=== PATIENT | male | born 1955 | race Caucasian/White ===

== ENCOUNTER → 2016-05-23 | Outpatient (CLI) | payer MEDICARE, OTHER ==
[~2016-05-23] VITALS: Ht 180.3 cm; Wt 93.0 kg
[~2016-05-23] MED LIST: ATOR10TA15 PO; BRIN1SUS2 EACH EYE; CILO50TA PO; COLA100C3 PO; COLL30T TOPICAL; DIFL100T PO; FERR325T PO; HUMALOG SQ; HYDR-3288 PO; INSULIN HUMAN REGULAR 1,000 UNITS/10 ML VIAL SQ PRN; LACTATED RINGER'S 1000 ML IV SCH; LANTUS2P SQ; LISI40TA PO; LORA-474 PO; LYRI50CA PO; MAPA325T PO; METOPROLOL TARTRATE 25 MG TAB PO PRN; NORC5TAB PO; PLAV75TA29 PO; PRIL20CA9 PO; PROPOFOL 200 MG/20 ML AMP IV ONE; PROT40TA PO; SODIUM CHLORID 0.9% 500 ML IV SCH; THERTAB17 PO; TOPR100T PO; TRAV0.00 EACH EYE; WARF-23 PO; WARF-58 PO; fentaNYL CITRATE 250 MCG/5 ML AMP ONE
[2016-05-23 08:43] VITALS: BP 148/81; PULSE 81; RESP 16; TEMP 97.6; O2SAT 100
[2016-05-23 08:55] LABS: INTERNATIONAL NORMALIZED RATIO 1.2 RATIO; PROTHROMBIN TIME - PATIENT 13.1 SEC (9.8-11.6)
--- NOTE | 2016-05-23 10:55 | PD.PROCEDR ---
GI Procedure PROCEDURE PERFORMED Colonoscopy through rectum and through colostomy with snare polypectomy INDICATION FOR PROCEDURE Anemia GI bleed PROCEDURE: The procedure, risks and benefits were discussed with Mr. Medeiros and informed consent was obtained. Anesthesia sedated him with Diprivan. He was placed in the left lateral decubitus position. Colonoscopy: The Pentax videoscope was introduced through the rectum and advanced to cecum where the ileocecal valve and appendiceal orifice were identified. Retroflexion was performed in the rectum. Colonic prep was good FINDINGS: Initially I advanced the scope through the rectum to about 40 cm the prep was not so good there was some mild erythemic patches that no ulcerations no blood or bleeding then the scope was advanced through the colostomy bag all way to the cecum the patient was noted to have 2 sessile polyps one in the ascending 1 in the mid transverse colon adenomatous appearing medium in size both were excised using cold snare technique and they were retrieved for further evaluation colonic examination was otherwise unremarkable ESTIMATED BLOOD LOSS: None SPECIMENS REMOVED: Ascending colon and transverse colon polyps COMPLICATIONS: None IMPRESSION: Colon polyps PLAN: Await biopsy Monitor labs Follow-up in clinic in 1 month CBC prior to office visit Colonoscopy in 5 years Ezekiel Bear MD May 23, 2016 10:55
[2016-05-23 11:02] VITALS: BP 149/70; PULSE 54; RESP 16; O2SAT 98
--- NOTE | 2016-09-10 10:59 | MB ---
cc: OPHELIA FOSTER M.D. DATE OF CONSULTATION May 23, 2016 REASON FOR CONSULTATION Pneumoperitoneum. HISTORY OF PRESENT ILLNESS Mr. Medeiros is a 60-year-old male who had had a loop colostomy done several years ago for nonhealing perineal wound and incontinence. He has been worked up recently for occult GI bleeding and anemia. The patient underwent colonoscopy through the colostomy and through his rectum a day prior to admission which revealed no source for the anemia. He presented to the emergency room today with abdominal pain, relatively diffuse, fever and vomiting. Workup in the emergency room noted pneumoperitoneum and the undersigned was consulted for additional evaluation. He was urgently transferred from [place] emergency Room up to the [facility] preop holding unit in preparation for surgery. PAST MEDICAL HISTORY 1. History of diabetes. 2. Hypertension. 3. Previous strokes. 4. Coronary bypass. 5. 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 6. Colostomy for a nonhealing perineal wound. MEDICATIONS Please see the admitting list. ALLERGIES LATEX. MULTI DRUG-RESISTANT ORGANISMS on prior admissions. FAMILY HISTORY No family history of colorectal surgery. SOCIAL HISTORY The patient has had smoking in the past but presently nonsmoking. Denies any alcohol abuse. Disabled due to his diabetes and amputation. PERTINENT PHYSICAL GENERAL: A very pleasant heavy-set male in some distress. HEENT: Remarkable for very dry but pink membranes, nonicteric sclera. NECK: Stiff, without adenopathy. CHEST: Diminished in the bases. Clear anteriorly. HEART: Regular rhythm with a slight tachycardia. ABDOMEN: Round and full. Positive tympany. Quite tender to minimal touch in just about all quadrants. No rebound but there was some guarding. Stoma was pink and producing some mucus. No sign of any mucosal ischemia. RECTAL: Exam revealed very poor tone with some tightness and scar tissue. No masses or mucosal irregularity in the rectum. EXTREMITIES: No cyanosis, clubbing or edema. The one amputation appeared pretty normal. LABORATORY FINDINGS White count was 10,000, hemoglobin 10.3, hematocrit 31.7, platelet count was 172,000. Electrolytes were pretty normal with a BUN of 28 and a creatinine of 2.6. X-RAYS Reviewed showing rather widespread pneumoperitoneum. IMPRESSION A 60-year-old male with multiple medical problems, underwent colonoscopy for workup of anemia, now found to have pneumoperitoneum. He has been resuscitated with fluids and given broad-spectrum antibiotics. Discussed exploratory laparotomy and possible colon resection with reformation of the colostomy. He does have a parastomal hernia which does not appear to be the cause of the pneumoperitoneum. The risks, benefits and alternatives were discussed in great length with the patient and we will proceed to the operating room as soon as the OR is available. MD JUANIS Liang/SHERRIE /9:52 AM /10:52 AM
== END ==
LOC: HEND 08:06
PROVIDERS: ATTEND Internal Medicine Gastroenterology
DX: D12.2 Benign neoplasm of ascending colon (principal); D12.3 Benign neoplasm of transverse colon; K92.2 Gastrointestinal hemorrhage, unspecified; D64.9 Anemia, unspecified; E10.610 Type 1 diabetes mellitus with diabetic neuropathic arthropathy; E10.22 Type 1 diabetes mellitus with diabetic chronic kidney disease; N18.9 Chronic kidney disease, unspecified; Z79.82 Long term (current) use of aspirin; Z79.01 Long term (current) use of anticoagulants; Z79.4 Long term (current) use of insulin
CPT/HCPCS: 82948; 85610; 88305; J3010

== ENCOUNTER 2016-05-24 11:43 | Inpatient (IN) | payer MEDICARE, OTHER ==
[~2016-05-24] VITALS: Ht 154.9 cm; Wt 91.5 kg
[~2016-05-24 11:43] MED LIST changes: -COLL30T TOPICAL; -DIFL100T PO; -FERR325T PO; -INSULIN HUMAN REGULAR 1,000 UNITS/10 ML VIAL SQ PRN; -LACTATED RINGER'S 1000 ML IV SCH; -LISI40TA PO; -MAPA325T PO; -METOPROLOL TARTRATE 25 MG TAB PO PRN; -NORC5TAB PO; -PROPOFOL 200 MG/20 ML AMP IV ONE; -PROT40TA PO; -SODIUM CHLORID 0.9% 500 ML IV SCH; -THERTAB17 PO; -WARF-58 PO; -fentaNYL CITRATE 250 MCG/5 ML AMP ONE
--- NOTE | 2016-05-24 11:51 | PD ---
HPI Chief Complaint: Abd Pain Time Seen by Provider: 11:51 Travel History International Travel<30 days: No Contact w/Intl Traveler<30days: No Traveled to known affect area: No History of Present Illness HPI 60-year-old male with history of type 1 diabetes, BKA, colostomy, SIRS , and GI bleed, presents the emergency department via ambulance status post colonoscopy yesterday with removal of 2 sessile polyps. Patient states he was discharged home yesterday but had nausea and vomiting at home last evening. He presents today with pain in his left lower abdomen. Patient denies bleeding from his ostomy. Patient feels generally weak but denies fever, chills, chest pain, or shortness of breath. Patient appears pale and weak. Patient has a history of MRSA and is allergic to latex. PFSH Past Medical History Arthritis: Yes Asthma: No Autoimmune Disease: No Blood Disorders: No Anxiety: No Depression: No Heart Rhythm Problems: No Cancer: No Cardiac Catheterization: No Cardiovascular Problems: Yes High Cholesterol: Yes Chemotherapy: No Chest Pain: No Congestive Heart Failure: No COPD: No Cerebrovascular Accident: Yes (2012) Diabetes: Yes Endocrine: Yes Gastrointestinal Disorders: Yes (colostomy bag. ) GERD: No Genitourinary: Yes Hiatal Hernia: No Hypertension: Yes Immune Disorder: No Kidney Stones: No Musculoskeletal: Yes (LT SIDE WEAKNESS WITH FOOT DROP ON LT) Neurologic: Yes Psychiatric: No Reproductive: No Respiratory: No Migraines: No Radiation Therapy: No Renal Failure: No Seizures: No Sickle Cell Disease: No Sleep Apnea: No Thyroid Disease: No Ulcer: No Past Surgical History Abdominal Surgery: Yes (COLOSTOMY) AICD: No Arteriovenous Shunt: No Cardiac Surgery: Yes (MITRAL VALVE REPLACED 05/2012) Coronary Artery Bypass Graft: Yes (06-10-2012) Ear Surgery: No Endocrine Surgery: No Eye Surgery: No Genitourinary Surgery: No Gynecologic Surgery: No Insulin Pump: No Joint Replacement: No Oral Surgery: No Pacemaker: No Thoracic Surgery: Yes Valve Replacement: Yes (MVR 06-10-2012) Other Surgery: Yes Social History Alcohol Use: No (OCC) Tobacco Use: No Substance Use: Yes (marijuana) Allergies-Medications (Allergen,Severity, Reaction): Coded Allergies: Latex (Verified Allergy, Severe, Rash, 05/24/16) *MDRO Multi-Drug Resistant Organism (Verified Allergy, Unknown, 05/24/16) 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 Reported Meds & Prescriptions Reported Meds & Active Scripts Active Protonix (Pantoprazole Sodium) 40 Mg Tab 40 Mg PO BID 30 Days Toprol XL (Metoprolol Succinate) 100 Mg Tab 100 Mg PO DAILY [place] (Hydrocodone-Acetaminophen) 7.5-325 mg Tab 1 Tab PO QID Lyrica (Pregabalin) 50 Mg Cap 50 Mg PO HS Ativan (Lorazepam) 1 Mg Tab 1 Mg PO HS Reported Travatan Z Opth Drops (Travoprost) 0.004 % Soln 1 Drop EACH EYE HS Cilostazol 50 Mg Tab 50 Mg PO BID Simbrinza Opth Drops (Brinzolamide-Brimonidine Opth Drops) 1-0.2% Susp 1 Drop EACH EYE BID Atorvastatin (Atorvastatin Calcium) 10 Mg Tab 10 Mg PO HS Plavix (Clopidogrel Bisulfate) 75 Mg Tab 75 Mg PO DAILY Lantus Inj (Insulin Glargine) 1,000 Unit/10 Ml Vial 35 Units SQ DAILY Colace (Docusate Sodium) 100 Mg Cap 100 Mg PO DAILY PRN Warfarin 5 Mg Tab 5 Mg PO DAILY@1600 Review of Systems Except as stated in HPI: all other systems reviewed are Neg General / Constitutional: No: Fever Eyes: No: Visual changes HENT: No: Headaches Cardiovascular: No: Chest Pain or Discomfort Respiratory: No: Shortness of Breath Gastrointestinal: Positive: Nausea, Vomiting, Abdominal Pain (see history of present illness.), Loss of Appetite, No: Diarrhea Genitourinary: No: Dysuria Musculoskeletal: No: Pain Skin: No Rash Neurologic: No: Weakness Psychiatric: No: Depression Endocrine: No: Polydipsia Hematologic/Lymphatic: No: Easy Bruising Physical Exam Narrative GENERAL: Patient appears in mild distress and weak. SKIN: Warm and dry. Patient has moderate pallor, normal turgor. HEAD: Atraumatic. Normocephalic. EYES: Pupils equal and round. No scleral icterus. No injection or drainage. ENT: No nasal bleeding or discharge. Mucous membranes pink and dry. Pharynx is dry and appearance otherwise normal. NECK: Trachea midline. No JVD. Supple nontender. CARDIOVASCULAR: Regular rate and rhythm. No murmurs gallops or rubs. RESPIRATORY: No accessory muscle use. Clear to auscultation. Breath sounds equal bilaterally. GASTROINTESTINAL: Abdomen soft, non-tender, nondistended. Hepatic and splenic margins not palpable. Nonspecific left lower quadrant discomfort. No palpable mass. Colostomy appears normal. MUSCULOSKELETAL: Extremities without clubbing, cyanosis, or edema. Patient has a right BKA.. NEUROLOGICAL: Awake and alert. No obvious cranial nerve deficits. Motor grossly within normal limits. Five out of 5 muscle strength in the arms and legs. Normal speech. PSYCHIATRIC: Appropriate mood and affect; insight and judgment normal. Data Data Last Documented VS Vital Signs Date Time Temp Pulse Resp B/P Pulse Ox O2 Delivery O2 Flow Rate FiO2 05/24/16 14:37 94 20 120/65 97 Room Air 05/24/16 11:52 98.2 Orders Complete Blood Count With Diff (05/24/16 11:56) Comprehensive Metabolic Panel (05/24/16 11:56) Lipase (05/24/16 11:56) Lactic Acid (05/24/16 11:56) Prothrombin Time / Inr (Pt) (05/24/16 11:56) Act Partial Throm Time (Ptt) (05/24/16 11:56) Urinalysis - C+S If Indicated (05/24/16 11:56) Iv Access Insert/Monitor (05/24/16 11:56) Ecg Monitoring (05/24/16 11:56) Oximetry (05/24/16 11:56) Morphine Inj (Morphine Inj) (05/24/16 12:00) Ondansetron Inj (Zofran Inj) (05/24/16 12:00) Sodium Chlor 0.9% 1000 Ml Inj (Ns 1000 M (05/24/16 11:56) Sodium Chloride 0.9% Flush (Ns Flush) (05/24/16 12:00) Chest, Single Ap (05/24/16 11:56) Oral Contrast - Adult (05/24/16 12:01) Electrocardiogram (05/24/16 ) Diatrizoate Liq ( Gastroview Liq) (05/24/16 12:15) Ct Abd/Pel W/O Iv Contrast (05/24/16 13:00) Piperacil-Tazo 4.5 Gm Premix (Zosyn 4.5 (05/24/16 14:30) Act Partial Throm Time (Ptt) (05/24/16 14:25) Type And Screen (05/24/16 14:25) Hydromorphone Pf Inj (Dilaudid Pf Inj) (05/24/16 14:45) Urinary Catheter Insert/Apply (05/24/16 16:12) Sodium Chlor 0.9% 1000 Ml Inj (Ns 1000 M (05/24/16 16:30) Admit Order (Ed Use Only) (05/24/16 16:43) Consult Colorectal Surgery (05/24/16 ) Labs Laboratory Tests Test 05/24/16 05/24/16 12:20 12:40 White Blood Count 10.0 TH/MM3 Red Blood Count 3.56 MIL/MM3 Hemoglobin 10.3 GM/DL Hematocrit 31.7 % Mean Corpuscular Volume 89.2 FL Mean Corpuscular Hemoglobin 29.1 PG Mean Corpuscular Hemoglobin 32.6 % Concent Red Cell Distribution Width 16.0 % Platelet Count 172 TH/MM3 Mean Platelet Volume 8.3 FL Neutrophils (%) (Auto) 83.8 % Lymphocytes (%) (Auto) 10.8 % Monocytes (%) (Auto) 5.0 % Eosinophils (%) (Auto) 0.1 % Basophils (%) (Auto) 0.3 % Neutrophils # (Auto) 8.4 TH/MM3 Lymphocytes # (Auto) 1.1 TH/MM3 Monocytes # (Auto) 0.5 TH/MM3 Eosinophils # (Auto) 0.0 TH/MM3 Basophils # (Auto) 0.0 TH/MM3 CBC Comment DIFF FINAL Differential Comment Prothrombin Time 19.4 SEC Prothromb Time International 1.7 RATIO Ratio Activated Partial 40.6 SEC Thromboplast Time Sodium Level 138 MEQ/L Potassium Level 4.4 MEQ/L Chloride Level 106 MEQ/L Carbon Dioxide Level 24.1 MEQ/L Anion Gap 8 MEQ/L Blood Urea Nitrogen 28 MG/DL Creatinine 2.63 MG/DL Estimat Glomerular Filtration 25 ML/MIN Rate Random Glucose 134 MG/DL Calcium Level 8.6 MG/DL Total Bilirubin 0.7 MG/DL Aspartate Amino Transf 11 U/L (AST/SGOT) Alanine Aminotransferase 22 U/L (ALT/SGPT) Alkaline Phosphatase 62 U/L Total Protein 6.8 GM/DL Albumin 3.1 GM/DL Lipase 93 U/L Lactic Acid Level 2.3 mmol/L MDM Medical Decision Making Medical Screen Exam Complete: Yes Emergency Medical Condition: Yes Differential Diagnosis Abdominal pain. Bowel obstruction. Bowel perforation. Fever. Narrative Course Patient appears weak but medically stable at time of exam. Labs ordered including CBC, CMP, lipase, PT PTT and INR, and urinalysis. Chest x-ray is ordered as well as abdominal CT with oral and IV contrast. Patient is given 1000 mL normal saline bolus IV. Patient is given 4 mg Zofran IV as well as 2 mg morphine IV. Patient is awaiting medical bed from the ambulance [facility]. CT scan shows "a large amount of air in the subcutaneous fat of the left lower quadrant abdominal wall adjacent to loop colostomy there is additionally here in the abdomen and pelvis primarily retroperitoneal tracking superiorly beneath the right hemidiaphragm. There is a small amount of free fluid in the left pelvis along with mild inflammatory change. These findings could be related to the recent surgery but there is more than expected amount of intraluminal air present. Therefore, perforated bowel cannot excluded. We could attempt instilling contrast in the ostomy site if there is a clinical concern for perforation". Per radiologist. Patient discussed with Dr. Garcia, and 2 units of blood typed and screened. Patient is given Zofran 4.5 mg IV. Patient given 1 mg hydromorphone IV. Call was placed to Dr. Fuller the colorectal surgeon on-call. Call was also placed to Dr. Burrell, who performed the colonoscopy yesterday. Patient is moved to an echo 57. 1445 hrs. patient was discussed with Dr. Fuller. He states he is going to review the patient's labs and CT scan and get back to me. Call still pending from Dr. Burrell. Patient discussed with Dr. Huang. Patient discussed with Dr. Fuller who feels the patient should be admitted to the hospitalist and expect to go to the OR later today. IV fluids are maintained, and Rodriguez catheter is placed. Patient is discussed with the residents who will admit the patient. Diagnosis Primary Impression: Perforated bowel Additional Impression: Abdominal pain Qualified Code: R10.32 - Left lower quadrant pain Admitting Information Admitting Physician Requests: Admit Condition: Stable Helder Morrison May 24, 2016 11:51
[2016-05-24 11:52] VITALS: BP 97/56; PULSE 79; RESP 20; TEMP 98.2; O2SAT 96
[2016-05-24] MEDS ORDERED: SODIUM CHLOR 0.9% 1000 ML INJ 1,000 ML IV SCH ×2 (11:56→16:30)
[2016-05-24] MEDS ORDERED: PROPOFOL 200 MG/20 ML AMP IV ONE (12:00)
[2016-05-24] MEDS ORDERED: SODIUM CHLORIDE 0.9% FLUSH 5 ML FLUSH IVF PRN ×2 (12:00→22:15)
[2016-05-24] MEDS ORDERED: MORPHINE SULFATE 4 MG/ML INJ IV PUSH ONE (12:00)
[2016-05-24] MEDS ORDERED: PHENYLEPH/NS 1000 MCG/10 ML SYR IV ONE (12:00)
[2016-05-24] MEDS ORDERED: SODIUM CHLORID 0.9% 500 ML INJ 500 ML IV ONE (12:00)
[2016-05-24] MEDS ORDERED: NORMOSOL R INJ 4,000 ML IV ONE (12:00)
[2016-05-24] MEDS ORDERED: ONDANSETRON HCL 4 MG/2 ML VIAL IVP ONE (12:00)
[2016-05-24] MEDS ORDERED: SUGAMMADEX SODIUM 200 MG/2 ML VIAL IV PUSH ONE ×2 (12:00)
[2016-05-24] MEDS ORDERED: LACTATED RINGER'S 1000 ML INJ 1,000 ML IV ONE (12:00)
[2016-05-24 12:13] VITALS: O2SAT 97
[2016-05-24] MEDS ORDERED: DIATRIZOATE MEGLUM/DIATRIZOATE SOD 9 ML CUP ONE (12:15)
[2016-05-24 12:36] LABS: AUTOMATED NEUTROPHIL # 8.4 TH/MM3 (1.8-7.7); BASOPHIL % 0.3 % (0.0-2.0); EOSINOPHIL % 0.1 % (0.0-4.0); HEMATOCRIT 31.7 % (39.0-51.0); HEMO FLAGS DIFF FINAL; LYMPH % 10.8 % (9.0-44.0); LYMPHOCYTE # 1.1 TH/MM3 (1.0-4.8); MEAN CELL VOLUME 89.2 FL (80.0-100.0); MEAN CORPUSCULAR HEMOGLOBIN 29.1 PG (27.0-34.0); MEAN CORPUSCULAR HGB CONC 32.6 % (32.0-36.0); NEUT % 83.8 % (16.0-70.0); PLATELET COUNT 172 TH/MM3 (150-450); RED BLOOD COUNT 3.56 MIL/MM3 (4.50-5.90)
[2016-05-24 12:42] LABS: APTT (PATIENT) 40.6 SEC (24.3-30.1); INTERNATIONAL NORMALIZED RATIO 1.7 RATIO; PROTHROMBIN TIME - PATIENT 19.4 SEC (9.8-11.6)
[2016-05-24 12:51] LABS: ALT (GPT) 22 U/L (12-78); ANION GAP 8 MEQ/L (5-15); AST (GOT) 11 U/L (15-37); BICARBONATE 24.1 MEQ/L (21.0-32.0); BLOOD UREA NITROGEN 28 MG/DL (7-18); CHLORIDE 106 MEQ/L (98-107); GLOMERULAR FILTRATION RATE 25 ML/MIN (>89); POTASSIUM 4.4 MEQ/L (3.5-5.1); SODIUM (NA) 138 MEQ/L (136-145)
[2016-05-24 12:54] LABS: ALKALINE PHOSPHATASE 62 U/L (45-117); TOTAL BILIRUBIN ADULT 0.7 MG/DL (0.2-1.0)
--- NOTE | 2016-05-24 13:13 | RADRPT ---
EXAM DATE/TIME: 05/24/2016 12:32 [facility] COMPARISON: CHEST SINGLE AP, April 04, 2016, 9:20. INDICATIONS : Chest pains. MEDICAL HISTORY : Cerebrovascular disease. SURGICAL HISTORY : CABG. ENCOUNTER: Subsequent ACUITY: 1 day PAIN SCORE: 7/10 LOCATION: Bilateral chest FINDINGS: Stable postsurgical changes related to heart valve replacement. The lungs are hypoinflated but grossl y clear. Heart size is normal. Pulmonary vasculature is normal in caliber. Osseous structures are unr emarkable. CONCLUSION: No acute disease. Mirlande Benson MD on May 24, 2016 at 13:11 Board Certified Radiologist. This report was verified electronically.
[2016-05-24 14:15] VITALS: BP 111/57; PULSE 74; RESP 18; O2SAT 98
--- NOTE | 2016-05-24 14:19 | RADRPT ---
EXAM DATE/TIME: 05/24/2016 13:54 [facility] COMPARISON: CT ABDOMEN & PELVIS W/O CONTRAST, June 11, 2012, 16:18. INDICATIONS : Colostomy yesterday. Complains of pain around colostomy site and nausea with vomiting. ORAL CONTRAST: No oral contrast ingested. RADIATION DOSE: 10.03 CTDIvol (mGy) MEDICAL HISTORY : Hypertension. Diabetes mellitus type 2. SURGICAL HISTORY : Colostomy. ENCOUNTER: Initial ACUITY: 1 day PAIN SCALE: 4/10 LOCATION: Left abdomen TECHNIQUE: Volumetric scanning of the abdomen and pelvis was performed. Using automated exposure control and ad justment of the mA and/or kV according to patient size, radiation dose was kept as low as reasonably achievable to obtain optimal diagnostic quality images. FINDINGS: LOWER LUNGS: There is trace pleural fluid bilaterally, right greater than left. Patient is post mitral valve repla cement. LIVER: Homogeneous density without lesion. There is no dilation of the biliary tree. There are calcified s tones in the gallbladder. Liver density is mildly decreased.. SPLEEN: Normal size without lesion. PANCREAS: Within normal limits. KIDNEYS: Normal in size and shape. There is no mass, stone, or hydronephrosis. ADRENAL GLANDS: Within normal limits. VASCULAR: There is no aortic aneurysm. There is severe atherosclerotic disease. BOWEL/MESENTERY: A small hiatal hernia is present. Stomach otherwise demonstrates no abnormality. Duodenum and jejunum have a normal appearance. There is a left lower quadrant loop colostomy and there is a large amount of air in the subcutaneous fat of the abdominal wall there is also air in the abdomen and pelvis was located retroperitoneally. This retroperitoneal air tracks superiorly in the abdomen and is adjacent to the duodenum, IVC, and liver. There is trace free fluid in the left pelvis and there is mild stran ding of the fat in the left lower quadrant. Mild sigmoid diverticulosis is present. Within and near t he ostomy site there is a soft tissue density abutting the colon. ABDOMINAL WALL: There is a left lower quadrant colostomy with a large amount of air in the subcutaneous fat. RETROPERITONEUM: There is no lymphadenopathy. BLADDER: No wall thickening or mass. REPRODUCTIVE: Within normal limits. INGUINAL: There is no lymphadenopathy or hernia. MUSCULOSKELETAL: There are degenerative changes of the spine but no acute osseous abnormality is seen. CONCLUSION: 1. There is a large amount of air in the subcutaneous fat of the left lower quadrant abdominal wall a djacent to the loop colostomy. There additionally is air in the abdomen and pelvis primarily retroper itoneally tracking superiorly beneath the right hemidiaphragm. 2. There is a small amount of free fluid in the left pelvis along with mild inflammatory change. Thes e findings could be related to the recent surgery but there is more than an expected amount of extral uminal air present. Therefore, perforated bowel cannot be excluded. We could attempt instilling contr ast into the ostomy site if there is clinical concern for perforation. Vazquez Bonds MD on May 24, 2016 at 14:13 Board Certified Radiologist. This report was verified electronically.
[2016-05-24] MEDS ORDERED: PIPERACIL-TAZO 4.5 GM PREMIX 100 ML IV ONE (14:30)
[2016-05-24 14:37] VITALS: BP 120/65; PULSE 94; RESP 20; O2SAT 97
[2016-05-24] MEDS ORDERED: HYDROmorphone HCL PF 1 MG/ML VIAL IV PUSH ONE (14:45)
--- NOTE | 2016-05-24 16:41 | PD ---
Data Data Last Documented VS Vital Signs Date Time Temp Pulse Resp B/P Pulse Ox O2 Delivery O2 Flow Rate FiO2 05/24/16 14:37 94 20 120/65 97 Room Air 05/24/16 11:52 98.2 Orders Complete Blood Count With Diff (05/24/16 11:56) Comprehensive Metabolic Panel (05/24/16 11:56) Lipase (05/24/16 11:56) Lactic Acid (05/24/16 11:56) Prothrombin Time / Inr (Pt) (05/24/16 11:56) Act Partial Throm Time (Ptt) (05/24/16 11:56) Urinalysis - C+S If Indicated (05/24/16 11:56) Iv Access Insert/Monitor (05/24/16 11:56) Ecg Monitoring (05/24/16 11:56) Oximetry (05/24/16 11:56) Morphine Inj (Morphine Inj) (05/24/16 12:00) Ondansetron Inj (Zofran Inj) (05/24/16 12:00) Sodium Chlor 0.9% 1000 Ml Inj (Ns 1000 M (05/24/16 11:56) Sodium Chloride 0.9% Flush (Ns Flush) (05/24/16 12:00) Chest, Single Ap (05/24/16 11:56) Oral Contrast - Adult (05/24/16 12:01) Electrocardiogram (05/24/16 ) Diatrizoate Liq ( Gastroview Liq) (05/24/16 12:15) Ct Abd/Pel W/O Iv Contrast (05/24/16 13:00) Piperacil-Tazo 4.5 Gm Premix (Zosyn 4.5 (05/24/16 14:30) Act Partial Throm Time (Ptt) (05/24/16 14:25) Type And Screen (05/24/16 14:25) Hydromorphone Pf Inj (Dilaudid Pf Inj) (05/24/16 14:45) Urinary Catheter Insert/Apply (05/24/16 16:12) Sodium Chlor 0.9% 1000 Ml Inj (Ns 1000 M (05/24/16 16:30) Labs Laboratory Tests Test 05/24/16 05/24/16 12:20 12:40 White Blood Count 10.0 TH/MM3 Red Blood Count 3.56 MIL/MM3 Hemoglobin 10.3 GM/DL Hematocrit 31.7 % Mean Corpuscular Volume 89.2 FL Mean Corpuscular Hemoglobin 29.1 PG Mean Corpuscular Hemoglobin 32.6 % Concent Red Cell Distribution Width 16.0 % Platelet Count 172 TH/MM3 Mean Platelet Volume 8.3 FL Neutrophils (%) (Auto) 83.8 % Lymphocytes (%) (Auto) 10.8 % Monocytes (%) (Auto) 5.0 % Eosinophils (%) (Auto) 0.1 % Basophils (%) (Auto) 0.3 % Neutrophils # (Auto) 8.4 TH/MM3 Lymphocytes # (Auto) 1.1 TH/MM3 Monocytes # (Auto) 0.5 TH/MM3 Eosinophils # (Auto) 0.0 TH/MM3 Basophils # (Auto) 0.0 TH/MM3 CBC Comment DIFF FINAL Differential Comment Prothrombin Time 19.4 SEC Prothromb Time International 1.7 RATIO Ratio Activated Partial 40.6 SEC Thromboplast Time Sodium Level 138 MEQ/L Potassium Level 4.4 MEQ/L Chloride Level 106 MEQ/L Carbon Dioxide Level 24.1 MEQ/L Anion Gap 8 MEQ/L Blood Urea Nitrogen 28 MG/DL Creatinine 2.63 MG/DL Estimat Glomerular Filtration 25 ML/MIN Rate Random Glucose 134 MG/DL Calcium Level 8.6 MG/DL Total Bilirubin 0.7 MG/DL Aspartate Amino Transf 11 U/L (AST/SGOT) Alanine Aminotransferase 22 U/L (ALT/SGPT) Alkaline Phosphatase 62 U/L Total Protein 6.8 GM/DL Albumin 3.1 GM/DL Lipase 93 U/L Lactic Acid Level 2.3 mmol/L [facility] Supervised Visit with LOS: Yes Narrative Course The history, exam, and medical decision-making in the associated midlevel provider note were completed with my assistance. I reviewed and agree with the findings presented. I attest that I had a [id number] encounter with the patient on the same day, and personally performed and documented my assessment and findings in the medical record. *My assessment and Findings: This is a 60-year-old male who presents to the emergency department having had a colonoscopy performed yesterday. He has been having increasing lower abdominal pain over the past 24 hours associated with some vomiting. CT scan demonstrates air in the retroperitoneum consistent with a perforation. Patient was given IV Zosyn and we spoke to Dr. Fuller who will take the patient to the operating room. Diagnosis Primary Impression: Perforated bowel Additional Impression: Abdominal pain Qualified Code: R10.32 - Left lower quadrant pain Condition: Stable Bessie Garcia MD May 24, 2016 16:41
--- NOTE | 2016-05-24 16:51 | HHI.HP ---
HPI Service Family Medicine team B Attending Dr. Calderon aDvis PGY [address] PGY1 [address] Sethi PGY3 Primary Care Physician Unknown Admission Diagnosis Diagnoses: International Travel<30 Days: No Contact w/Intl Traveler<30days: No Known Affected Area: No History of Present Illness This is a 60-year-old male with a medical history significant for type 1 diabetes, BKA, hx of GI bleed status post colostomy 2012 who presented to the ER today with chief complaint of abdominal pain, nausea, and vomiting. Colostomy placed because it sounds like he was having lots of loose stools leading to poor healing of bed sores. The patient had a colonoscopy performed yesterday by Dr. Pal where 2 polyps were removed. Performed because he was having blood in stool. He was discharged home initially felt well, but later in the evening developed some abdominal pain, nausea, and vomiting. Patient came to the ER for evaluation where CT of the abdomen was suggestive of perforated bowel. Dr. Fuller present at the time of exam. Patient needs surgery, likely needs to have surgery today. Ate some breakfast this am. Having good urine output. Patient does not pass stool out of rectum. 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 Colostomy Reported Medications Protonix (Pantoprazole Sodium) 40 Mg Tab 40 Mg PO BID 30 Days Toprol XL (Metoprolol Succinate) 100 Mg Tab 100 Mg PO DAILY [place] (Hydrocodone-Acetaminophen) 7.5-325 mg Tab 1 Tab PO QID Lyrica (Pregabalin) 50 Mg Cap 50 Mg PO HS Ativan (Lorazepam) 1 Mg Tab 1 Mg PO HS Travatan Z Opth Drops (Travoprost) 0.004 % Soln 1 Drop EACH EYE HS Cilostazol 50 Mg Tab 50 Mg PO BID Simbrinza Opth Drops (Brinzolamide-Brimonidine Opth Drops) 1-0.2% Susp 1 Drop EACH EYE BID Atorvastatin (Atorvastatin Calcium) 10 Mg Tab 10 Mg PO HS Plavix (Clopidogrel Bisulfate) 75 Mg Tab 75 Mg PO DAILY Lantus Inj (Insulin Glargine) 1,000 Unit/10 Ml Vial 35 Units SQ DAILY Colace (Docusate Sodium) 100 Mg Cap 100 Mg PO DAILY PRN Warfarin 5 Mg Tab 5 Mg PO DAILY@1600 Allergies: Coded Allergies: Latex (Verified Allergy, Severe, Rash, 05/24/16) *MDRO Multi-Drug Resistant Organism (Verified Allergy, Unknown, 05/24/16) MRSA & ESBL (leg wound) - 2012 MDR Acinetobacter baumannii (screen) - 2012 Physical Exam Vital Signs Vital Signs Date Time Temp Pulse Resp B/P Pulse Ox O2 Delivery O2 Flow Rate FiO2 05/24/16 14:37 94 20 120/65 97 Room Air 05/24/16 14:15 74 18 111/57 98 05/24/16 12:13 97 05/24/16 11:52 98.2 79 20 97/56 96 Physical Exam GENERAL: This is a well-nourished, well-developed patient, in no apparent distress. SKIN: No rashes, ecchymoses or lesions. Cool and dry. HEAD: Atraumatic. Normocephalic. No temporal or scalp tenderness. EYES: Pupils equal round and reactive. Extraocular motions intact. No scleral icterus. No injection or drainage. ENT: Nose without bleeding, purulent drainage or septal hematoma. Throat without erythema, tonsillar hypertrophy or exudate. Uvula midline. Airway patent. NECK: Trachea midline. No JVD or lymphadenopathy. Supple, nontender, no meningeal signs. CARDIOVASCULAR: Regular rate and rhythm without murmurs, gallops, or rubs. RESPIRATORY: Clear to auscultation. Breath sounds equal bilaterally. No wheezes , rales, or rhonchi. GASTROINTESTINAL: Abdomen soft, non-tender, nondistended. No hepato-splenomegaly , or palpable masses. No guarding. MUSCULOSKELETAL: Extremities without clubbing, cyanosis, or edema. No joint tenderness, effusion, or edema noted. No calf tenderness. Negative Homans sign bilaterally. NEUROLOGICAL: Awake and alert. Cranial nerves II through XII intact. Motor and sensory grossly within normal limits. Five out of 5 muscle strength in all muscle groups. Normal speech. Laboratory Laboratory Tests Test 05/24/16 05/24/16 12:20 12:40 White Blood Count 10.0 Red Blood Count 3.56 Hemoglobin 10.3 Hematocrit 31.7 Mean Corpuscular Volume 89.2 Mean Corpuscular Hemoglobin 29.1 Mean Corpuscular Hemoglobin 32.6 Concent Red Cell Distribution Width 16.0 Platelet Count 172 Mean Platelet Volume 8.3 Neutrophils (%) (Auto) 83.8 Lymphocytes (%) (Auto) 10.8 Monocytes (%) (Auto) 5.0 Eosinophils (%) (Auto) 0.1 Basophils (%) (Auto) 0.3 Neutrophils # (Auto) 8.4 Lymphocytes # (Auto) 1.1 Monocytes # (Auto) 0.5 Eosinophils # (Auto) 0.0 Basophils # (Auto) 0.0 CBC Comment DIFF FINAL Differential Comment Prothrombin Time 19.4 Prothromb Time International 1.7 Ratio Activated Partial 40.6 Thromboplast Time Sodium Level 138 Potassium Level 4.4 Chloride Level 106 Carbon Dioxide Level 24.1 Anion Gap 8 Blood Urea Nitrogen 28 Creatinine 2.63 Estimat Glomerular Filtration 25 Rate Random Glucose 134 Calcium Level 8.6 Total Bilirubin 0.7 Aspartate Amino Transf 11 (AST/SGOT) Alanine Aminotransferase 22 (ALT/SGPT) Alkaline Phosphatase 62 Total Protein 6.8 Albumin 3.1 Lipase 93 Lactic Acid Level 2.3 Result Diagram: 05/24/16 1220 05/24/16 1220 Imaging Last Impressions Abdomen/Pelvis CT 05/24/16 1300 Signed Impressions: Service Date/Time: May 13:54 - CONCLUSION: 1. There is a large amount of air in the subcutaneous fat of the left lower quadrant abdominal wall adjacent to the loop colostomy. There additionally is air in the abdomen and pelvis primarily retroperitoneally tracking superiorly beneath the right hemidiaphragm. 2. There is a small amount of free fluid in the left pelvis along with mild inflammatory change. These findings could be related to the recent surgery but there is more than an expected amount of extraluminal air present. Therefore, perforated bowel cannot be excluded. We could attempt instilling contrast into the ostomy site if there is clinical concern for perforation. Vazquez Bonds MD Chest X-Ray 05/24/16 1156 Signed Impressions: Service Date/Time: May 12:32 - CONCLUSION: No acute disease. Mirlande Benson MD Assessment and Plan Assessment and Plan 4-year-old male with multiple medical problems presents to the ER today with abdominal pain after having a colonoscopy, found to have perforation of his bowel. Problem List: (1) Perforated bowel Status: Acute (2) KATHRINE (acute kidney injury) Status: Acute Plan: Any not admission 2.63. Baseline appears to be 1.5. (3) Anemia Status: Acute Plan: Hemoglobin on admission 10.3. This appears to be the patient's baseline. (4) FEN Status: Acute Physician Certification Order for Inpatient Services The services are ordered in accordance with Medicare regulations or non- Medicare payer requirements, as applicable. In the case of services not specified as inpatient-only, they are appropriately provided as inpatient services in accordance with the 2-midnight benchmark. days is the estimated time the patient will need to remain in the hospital, assuming treatment plan goals are met and no additional complications. Milla Sethi MD R3 May 24, 2016 16:51
[2016-05-24 17:07] LABS: BACTERIA, URINE OCC /hpf; BLOOD, URINE NEG (NEG); COMMENT (UR) CULTURE INDICATED; CULTURE IF INDICATED CULTURE INDICATED; GLUCOSE,URINE NEG (NEG); KETONE, URINE 10 mg/dL (NEG); MUCUS URINE FEW /lpf (OCC); NITRITE,URINE NEG (NEG); SQUAMOUS EPITHELIAL CELL URINE <1 /hpf (0-5); URINE COLOR YELLOW (YELLW/STRAW)
[2016-05-24] MEDS ORDERED: SODIUM CHLOR 0.9% 250 ML INJ 250 ML IV ONE (17:30)
--- NOTE | 2016-05-24 18:19 | HHI.HP ---
History of Present Illness Primary Care Physician Unknown Admission Diagnosis Perforated Bowel Diagnoses: (1) GI bleed (2) Abdominal pain (3) Anemia (4) KATHRINE (acute kidney injury) (5) Perforated bowel (6) SIRS (systemic inflammatory response syndrome) History of Present Illness 60 Y CM. RECET ADMIT WITH DILAN HUTCHISON TO [facility]. PT WENT HOME PREMATURELY PER HIS REQUEST THE NIGHT BEFORE COLONOSCOPY. HAD COLONOSCOPY YESTERDAY, SPIKED FEVERS AND CAME TO THE ER WITH ABDOMINAL PAIN AND VOMITING. FOUND TO HAVE PERFORATED BOWEL OUTLINED BELOW. PT SEEN IN THE ER. C/O ABDOMINAL PAIN AT THE TIME OTHERWISE APPEARS TO BE AT HIS BASELINE ALTHOUGH CHRONICALLY ILL APPEARING. I WAS CALLED FOR ADMISSION BY THE ER PA AND PT APPARENTLY IS TO HAVE EXPLORATORY SURGERY TONIGHT POSSIBLY. Sepsis Criteria SIRS Criteria (2 or more): Heart rate over 90 Sepsis Criteria (SIRS+source): Infect source susp/known Severe Sepsis (+one): Organ Dysfunction, Hypotension, Lactate >2, Acute Oliguria/Renal Failure Multiple Organ Dysfunction Syn: Evidence -2 organs failing Criteria Outcome: Meets severe sepsis criteria Review of Systems ROS Limitations: Clinical Condition, Poor Historian Other NEGATIVE FOURTEEN POINT ROS EXCEPT ABOVE Past Family Social History Allergies: Coded Allergies: Latex (Verified Allergy, Severe, Rash, 05/24/16) *MDRO Multi-Drug Resistant Organism (Verified Allergy, Unknown, 05/24/16) MRSA & ESBL (leg wound) - 2012 MDR Acinetobacter baumannii (screen) - 2012 Past Medical History DM HTN Stroke x2 CABG Past Surgical History BKA 2012 for gangrene Colostomy Reported Medications Current Medications Medications (Trade) Dose Ordered Sig/Celestine Route PRN Reason Start Time Stop Time Status Last Admin Dose Admin IV Flush 2 ml 2 ml UNSCH PRN IVF FLUSH AFTER USING IV ACCESS 05/24/16 12:00 Sodium Chloride 1,000 ml @ 125 mls/hr Q8H IV 05/24/16 16:30 05/24/16 16:30 Sodium Chloride (NS 250 ml Inj) 250 ml @ 15 mls/hr ONCE ONCE IV 05/24/16 17:30 05/25/16 10:09 Active Ordered Medications Last 48 hours Impressions Abdomen/Pelvis CT 05/24/16 1300 Signed Impressions: Service Date/Time: May 13:54 - CONCLUSION: 1. There is a large amount of air in the subcutaneous fat of the left lower quadrant abdominal wall adjacent to the loop colostomy. There additionally is air in the abdomen and pelvis primarily retroperitoneally tracking superiorly beneath the right hemidiaphragm. 2. There is a small amount of free fluid in the left pelvis along with mild inflammatory change. These findings could be related to the recent surgery but there is more than an expected amount of extraluminal air present. Therefore, perforated bowel cannot be excluded. We could attempt instilling contrast into the ostomy site if there is clinical concern for perforation. Vazquez Bonds MD Chest X-Ray 05/24/16 1156 Signed Impressions: Service Date/Time: May 12:32 - CONCLUSION: No acute disease. Mirlande Benson MD Family History NC Social History QUIT SMOKING, NO E/D; DISABLED Physical Exam Vital Signs Vital Signs Date Time Temp Pulse Resp B/P Pulse Ox O2 Delivery O2 Flow Rate FiO2 05/24/16 14:37 94 20 120/65 97 Room Air 05/24/16 14:15 74 18 111/57 98 05/24/16 12:13 97 05/24/16 11:52 98.2 79 20 97/56 96 Physical Exam GENERAL: This is a well-nourished, well-developed patient, in no apparent distress. SKIN: No rashes, ecchymoses or lesions. Cool and dry. HEAD: Atraumatic. Normocephalic. No temporal or scalp tenderness. EYES: Pupils equal round and reactive. Extraocular motions intact. No scleral icterus. No injection or drainage. ENT: Nose without bleeding, purulent drainage or septal hematoma. Throat without erythema, tonsillar hypertrophy or exudate. Uvula midline. Airway patent. NECK: Trachea midline. No JVD or lymphadenopathy. Supple, nontender, no meningeal signs. CARDIOVASCULAR: Regular rate and rhythm without murmurs, gallops, or rubs. RESPIRATORY: Clear to auscultation. Breath sounds equal bilaterally. No wheezes , rales, or rhonchi. GASTROINTESTINAL: Abdomen soft, tender, nondistended. No hepato-splenomegaly, or palpable masses. REBOUND AND GUIARDING. MUSCULOSKELETAL: Extremities without clubbing, cyanosis, or edema. No joint tenderness, effusion, or edema noted. No calf tenderness. Negative Homans sign bilaterally. NEUROLOGICAL: Awake and alert. Cranial nerves II through XII intact. Motor and sensory grossly within normal limits. . aphasic Laboratory Laboratory Tests Test 05/24/16 05/24/16 05/24/16 05/24/16 12:20 12:40 16:56 17:21 White Blood Count 10.0 Red Blood Count 3.56 Hemoglobin 10.3 Hematocrit 31.7 Mean Corpuscular Volume 89.2 Mean Corpuscular Hemoglobin 29.1 Mean Corpuscular Hemoglobin 32.6 Concent Red Cell Distribution Width 16.0 Platelet Count 172 Mean Platelet Volume 8.3 Neutrophils (%) (Auto) 83.8 Lymphocytes (%) (Auto) 10.8 Monocytes (%) (Auto) 5.0 Eosinophils (%) (Auto) 0.1 Basophils (%) (Auto) 0.3 Neutrophils # (Auto) 8.4 Lymphocytes # (Auto) 1.1 Monocytes # (Auto) 0.5 Eosinophils # (Auto) 0.0 Basophils # (Auto) 0.0 CBC Comment DIFF FINAL Differential Comment Prothrombin Time 19.4 Prothromb Time International 1.7 Ratio Activated Partial 40.6 Thromboplast Time Sodium Level 138 Potassium Level 4.4 Chloride Level 106 Carbon Dioxide Level 24.1 Anion Gap 8 Blood Urea Nitrogen 28 Creatinine 2.63 Estimat Glomerular Filtration 25 Rate Random Glucose 134 Calcium Level 8.6 Total Bilirubin 0.7 Aspartate Amino Transf 11 (AST/SGOT) Alanine Aminotransferase 22 (ALT/SGPT) Alkaline Phosphatase 62 Total Protein 6.8 Albumin 3.1 Lipase 93 Lactic Acid Level 2.3 Urine Color YELLOW Urine Turbidity HAZY Urine pH 5.0 Urine Specific [place] 1.019 Urine Protein 30 Urine Glucose (UA) NEG Urine Ketones 10 Urine Occult Blood NEG Urine Nitrite NEG Urine Bilirubin NEG Urine Urobilinogen LESS THAN 2.0 Urine Leukocyte Esterase SMALL Urine RBC 1 Urine WBC 6 Urine WBC Clumps RARE Urine Squamous Epithelial <1 Cells Urine Bacteria OCC Urine Mucus FEW Microscopic Urinalysis Comment CULTURE INDICATED Blood Type A POSITIVE Blood Bank Comment Date/Time Procedure Status Source Growth 05/24/16 16:56 Urine Culture Received Urine Clean Catch Pending Result Diagram: 05/24/16 1220 05/24/16 1220 Assessment and Plan Problem List: (1) GI bleed Status: Acute (2) Abdominal pain Status: Acute (3) Anemia Status: Acute (4) KATHRINE (acute kidney injury) Status: Acute (5) Perforated bowel Status: Acute (6) FEN Status: Acute (7) SIRS (systemic inflammatory response syndrome) Status: Acute Assessment and Plan PERFORATED BOWEL S/P COLONOSCOPY FOR GIB AND BLOOD LOSS ANEMIA MAY 23 SEVERE SEPSIS LACTIC ACIDOSIS KATHRINE DM HTN PAD R BKA CVA. Mitral valve replacement, on coumadin therapy. Coronary artery disease with a history of CABG PLAN: IV ABX IVF SURGERY POSSIBLY TONIGHT INSULIN BLOOD CULTURES AM LABS COLORECTAL CONSULT ID CONSULT HOLD PLAVIX HOLD CILOSTAZOL TOPROL XL STATIN INPT ADMIT FOR THE ABOVE DX AND PLAN. EXPECT 4 D INPT STAY THEN DC BACK TO [facility]. PT WOULD W/O INPT ADMIT. Problem Qualifiers (1) Abdominal pain: Qualified Code: R10.32 - Left lower quadrant pain Victor Manuel Jones MD May 24, 2016 18:19
[2016-05-24] MEDS ORDERED: ACETAMINOPHEN 325 MG TAB PO PRN ×2 (18:30→22:15)
[2016-05-24] MEDS ORDERED: cloNIDine HCL 0.1 MG TAB PO PRN (18:30)
[2016-05-24] MEDS ORDERED: SODIUM CHLORIDE 0.9% FLUSH 5 ML FLUSH FLUSH PRN (18:30)
[2016-05-24] MEDS ORDERED: NALOXONE HCL 0.4 MG/ML AMP IV PRN ×2 (18:30→22:15)
[2016-05-24] MEDS ORDERED: MAGNESIUM HYDROXIDE SUSP 30 ML CUP PO PRN (18:30)
[2016-05-24] MEDS ORDERED: LORazepam 2 MG/ML VIAL IV PUSH PRN (18:30)
[2016-05-24] MEDS ORDERED: Vancomycin Consult Pharmacy 1 EA XX SCH (18:30)
[2016-05-24] MEDS ORDERED: ONDANSETRON HCL 4 MG/2 ML VIAL IVP PRN (18:30)
[2016-05-24] MEDS ORDERED: ENALAPRILAT 2.5 MG/2 ML VIAL IV PUSH PRN (18:30)
[2016-05-24] MEDS ORDERED: ACETAMINOPHEN/HYDROcodone 325 MG/5 MG TAB PO PRN ×3 (18:30→22:15)
[2016-05-24] MEDS ORDERED: METOCLOPRAMIDE HCL 10 MG/2 ML VIAL IV PUSH PRN (18:30)
[2016-05-24] MEDS ORDERED: BISACODYL 10 MG SUPP PR PRN (18:30)
[2016-05-24] MEDS ORDERED: DEXT 5%-NACL 0.9% 1000 ML INJ 1,000 ML IV SCH (18:30)
[2016-05-24] MEDS ORDERED: MORPHINE SULFATE 8 MG/ML INJ IV PUSH PRN (18:30)
[2016-05-24] MEDS ORDERED: DEXTROSE 50% IN WATER 50 ML VIAL(D50) IV PUSH PRN (18:45)
[2016-05-24] MEDS ORDERED: GLUCAGON 1 MG/ML VIAL OTHER PRN (18:45)
[2016-05-24] MEDS ORDERED: VANCOMYCIN 1,500 MG/NS 500 ML IV ONE ×2 (20:00)
[2016-05-24] MEDS ORDERED: PANTOPRAZOLE SODIUM 40 MG VIAL IV PUSH SCH (20:00)
[2016-05-24] MEDS ORDERED: metroNIDAZOLE 500 MG INJ 100 ML IV SCH (20:00)
[2016-05-24] MEDS: INSULIN ASPART SUPPLEMENTAL SCALE SQ SCH (21:00)
[2016-05-24] MEDS ORDERED: SODIUM CHLORIDE 0.9% FLUSH 5 ML FLUSH FLUSH SCH (21:00)
[2016-05-24] MEDS ORDERED: BRINZOLAMIDE EACH EYE SCH (21:00)
[2016-05-24] MEDS: LATANOPROST 0.005% OPHT SOLN 2.5 ML BTL EACH EYE SCH (21:00)
[2016-05-24] MEDS ORDERED: BRIMONIDINE EACH EYE SCH (21:00)
[2016-05-24] MEDS: ATORVASTATIN 10 MG TAB PO SCH (21:00)
[2016-05-24 21:20] LABS: BLOOD GAS BASE EXCESS -8.7 mmol/L (-2-2); BLOOD GAS HCO3 16 mmol/L (22-26); BLOOD GAS METHEMOGLOBIN 1.2 % (0-2); BLOOD GAS O2 HGB SATURATION 97 % (90-100); BLOOD GAS OXYGEN CONTENT 12.8 Vol % (12.0-20.0); BLOOD GAS PCO2 31 mmHg (38-42); BLOOD GAS PO2 261 mmHg (61-120); CRITICAL VALUE YES; DRAW SITE ART LINE; FIO2 90 %; OXYGEN DEVICE VENTILATOR; STAT YES; TEMP CORR TO 98.6; VENT SETTINGS O.R.
[2016-05-24] MEDS: PANTOPRAZOLE SODIUM 40 MG VIAL IVP SCH (22:09)
[2016-05-24] MEDS: PCA - TOTAL MG MORPHINE DELIVERED PER SHIFT SCH (22:15)
[2016-05-24] MEDS ORDERED: ENALAPRILAT 2.5 MG/2 ML VIAL IV PRN (22:15)
[2016-05-24] MEDS ORDERED: POTASSIUM CHLOR 40 MEQ PREMIX 100 ML IV PRN (22:15)
[2016-05-24] MEDS ORDERED: BENZOCAINE 6 MG/MENTHOL 10 MG LOZENGE SUCK-ON PRN (22:15)
[2016-05-24] MEDS ORDERED: Post-op Orders (for Pharmacy) MISC XX ONE (22:15)
[2016-05-24] MEDS ORDERED: ENALAPRILAT 1.25 MG/ML VIAL IV PRN (22:15)
[2016-05-24] MEDS ORDERED: ONDANSETRON HCL 4 MG/2 ML VIAL IV PRN (22:15)
[2016-05-24] MEDS ORDERED: POTASSIUM CHLOR 20 MEQ PREMIX 100 ML IV PRN (22:15)
[2016-05-24] MEDS ORDERED: KETOROLAC TROMETHAMINE 30 MG/ML (IVP) VIAL IVP PRN (22:15)
[2016-05-24] MEDS ORDERED: *morphine SULFATE 8 MG/ML PERIprocedure ONLY ONE (22:21)
[2016-05-24] MEDS ORDERED: *MEPERIDINE 25 MG INJ VIAL PERIprocedural Use ONLY ONE (22:21)
[2016-05-24] MEDS: PIPERACIL-TAZO 2.25 GM PREMIX 50 ML IV SCH (22:40)
[2016-05-24] MEDS: D5-NS + KCL 20 MEQ INJ 1,000 ML IV SCH (22:48)
[2016-05-24] MEDS: MORPHINE SULFATE 30 MG/30 ML PCA IV SCH (23:03)
[2016-05-24] MEDS: metroNIDAZOLE 500 MG INJ 100 ML IV SCH (23:43)
[2016-05-25] VITALS (12 sets, daily range): BP systolic 98–168; BP diastolic 51–79; PULSE 86–109; RESP 10–25; TEMP 98.2–99.5; O2SAT 94–100
[2016-05-25 04:29] LABS: AUTOMATED NEUTROPHIL # 4.1 TH/MM3 (1.8-7.7); BASOPHIL % 0.1 % (0.0-2.0); EOSINOPHIL % 0.1 % (0.0-4.0); HEMATOCRIT 31.9 % (39.0-51.0); LYMPH % 6.5 % (9.0-44.0); LYMPHOCYTE # 0.3 TH/MM3 (1.0-4.8); MEAN CELL VOLUME 90.8 FL (80.0-100.0); MONO % 4.3 % (0.0-8.0); PLATELET COUNT 159 TH/MM3 (150-450); RED BLOOD COUNT 3.52 MIL/MM3 (4.50-5.90); RED CELL DISTRIBUTION WIDTH 16.1 % (11.6-17.2); WHITE BLOOD COUNT 4.6 TH/MM3 (4.0-11.0)
[2016-05-25 04:34] LABS: APTT (PATIENT) 45.3 SEC (24.3-30.1); INTERNATIONAL NORMALIZED RATIO 1.9 RATIO; PROTHROMBIN TIME - PATIENT 21.2 SEC (9.8-11.6)
[2016-05-25] MEDS: D5-NS + KCL 20 MEQ INJ 1,000 ML IV SCH (04:37)
[2016-05-25 04:59] LABS: HEMO FLAGS AUTO DIFF
[2016-05-25] MEDS: PIPERACIL-TAZO 2.25 GM PREMIX 50 ML IV SCH ×4 (05:08→21:55)
[2016-05-25 05:12] LABS: BICARBONATE 21.2 MEQ/L (21.0-32.0)
[2016-05-25 05:39] LABS: BANDS 48 % (0-6); BASOPHILS 2 % (0-2); METAMYELOCYTES 7 % (0-1); NEUTROPHIL # MANUAL DIFF 4.1 TH/MM3 (1.8-7.7); POLYS (SEG NEUTROPHILS) 34 % (16-70); SCAN/DIFF FINAL DIFF MANUAL; WBC DIFF SAMPLE 100
[2016-05-25 05:40] LABS: PLATELET ESTIMATE SMEAR NORMAL (NORMAL); PLATELET MORPHOLOGY NORMAL (NORMAL)
[2016-05-25 05:43] LABS: DOHLE BODIES PRESENT (NONE SEEN); TOXIC VACUOLATION PRESENT (NONE SEEN)
[2016-05-25] MEDS: metroNIDAZOLE 500 MG INJ 100 ML IV SCH ×2 (05:46→14:20)
[2016-05-25] MEDS: PCA - TOTAL MG MORPHINE DELIVERED PER SHIFT SCH ×3 (06:00→22:00)
[2016-05-25] MEDS: INSULIN ASPART SUPPLEMENTAL SCALE SQ SCH ×4 (06:32→21:00)
[2016-05-25] MEDS: SODIUM CHLORIDE 0.9% FLUSH 5 ML FLUSH IVF SCH ×2 (09:00→21:55)
[2016-05-25] MEDS: METOCLOPRAMIDE HCL 10 MG/2 ML VIAL IVS SCH ×2 (09:06→21:55)
[2016-05-25] MEDS: METOPROLOL SUCCINATE 50 MG EXTENDED RELEASE TAB PO SCH (09:07)
[2016-05-25] MEDS: PANTOPRAZOLE SOD 40 MG DELAYED RELEASE TAB PO SCH (09:07)
--- NOTE | 2016-05-25 10:17 | HHI.FPPN ---
Subjective Remarks C/O FACIAL AND DIFFUSE EDEMA INCR GLUC C/O MALAISE ALERT D/W RN Objective Vitals Vital Signs Date Time Temp Pulse Resp B/P Pulse Ox O2 Delivery O2 Flow Rate FiO2 05/25/16 10:00 101 05/25/16 08:00 109 05/25/16 08:00 98.8 109 23 139/57 99 05/25/16 07:00 95 Nasal Cannula 2.00 05/25/16 06:00 14 05/25/16 06:00 107 05/25/16 06:00 14 05/25/16 04:00 99.1 103 20 98/51 94 05/25/16 04:00 103 05/25/16 02:00 94 Nasal Cannula 2.00 05/25/16 02:00 96 05/25/16 02:00 98.7 96 14 137/67 94 Automatic Cuff 05/25/16 00:00 98.6 93 24 144/81 100 Nasal Cannula 2 164/70 05/24/16 23:03 16 05/24/16 23:00 97.6 99 21 117/73 99 Nasal Cannula 3 127/54 05/24/16 22:45 92 18 105/57 98 Nasal Cannula 3 97/46 05/24/16 22:30 93 16 114/46 99 Nasal Cannula 4 82/41 05/24/16 22:15 92 16 151/77 100 Nasal Cannula 4 144/58 05/24/16 22:15 15 05/24/16 22:00 97 15 146/87 100 Simple Mask 10 137/57 05/24/16 21:58 98.6 95 14 148/71 100 Simple Mask 10 137/57 05/24/16 14:37 94 20 120/65 97 Room Air 05/24/16 14:15 74 18 111/57 98 05/24/16 12:13 97 05/24/16 11:52 98.2 79 20 97/56 96 I/O 05/24/16 05/24/16 05/24/16 05/25/16 05/25/16 05/25/16 07:00 15:00 23:00 07:00 15:00 23:00 Intake Total 3700 ml 1842 ml Output Total 675 ml 905 ml Balance 3025 ml 937 ml Intake Oral 0 ml 0 ml IV Total 1200 ml 1842 ml Other 2500 ml Output Urine Total 75 ml 580 ml Stool Total 0 ml Drainage Total 50 ml 325 ml Estimated Blood Loss 50 ml Other 500 ml Result Diagram: 05/25/1634405/25/16344 Objective Remarks GENERAL: SKIN: Warm and dry. HEAD: Atraumatic. Normocephalic. EYES: Pupils equal and round. No scleral icterus. No injection or drainage. ENT: No nasal bleeding or discharge. Mucous membranes pink and moist. NECK: Trachea midline. No JVD. CARDIOVASCULAR: Regular rate and rhythm. RESPIRATORY: No accessory muscle use. Clear to auscultation. Breath sounds equal bilaterally. GASTROINTESTINAL: Abdomen soft, non-tender, nondistended. Hepatic and splenic margins not palpable. R VIJAY W SEROSANG, LARGE MIDLINE INCISION CDI, OLD OSTOMY SITE PACKED, NEW LUQ OSTOMY W NORMAL STOOL AND STOMA MUSCULOSKELETAL: Extremities without clubbing, cyanosis, 2 PLUS EDEMA LEGS AND FACE. R AKA NEUROLOGICAL: Awake and alert. No obvious cranial nerve deficits. Motor grossly within normal limits. Aphasic, 1/5 all extr's PSYCHIATRIC: Appropriate mood and affect; insight and judgment normal. Medications and IVs Current Medications Medications (Trade) Dose Ordered Sig/Celestine Route Start Time Stop Time Status Last Admin (Ativan Inj) 0.5 mg Q6H PRN IV PUSH 05/24/16 18:30 Clonidine 0.1 mg 0.1 mg Q6H PRN PO 05/24/16 18:30 (Coumadin Consult Pharmacy) 0 ml @ 0 mls/hr UNSCH OTHER 05/24/16 18:30 Hydralazine HCl 20 mg 20 mg Q4H PRN IV PUSH 05/24/16 18:30 Piperacillin Sod/ Tazobactam Sod 50 ml @ 100 mls/hr Q6H IV 05/24/16 21:00 05/25/16 09:06 (Vancomycin Consult Pharmacy) 0 ml @ 0 mls/hr UNSCH XX 05/24/16 18:30 (D50w (Vial) Inj) 25 ml UNSCH PRN IV PUSH 05/24/16 18:45 (Glucagon Inj) 1 mg UNSCH PRN OTHER 05/24/16 18:45 (Lipitor) 10 mg HS PO 05/24/16 21:00 (Toprol Xl) 100 mg DAILY PO 05/25/16 09:00 05/25/16 09:07 Patient Own Medication PT OWN MED: SIMBR... BID EACH EYE 05/24/16 21:00 Hold Latanoprost 1 drop 1 drop HS EACH EYE 05/24/16 21:00 (D5-NS + KCl 20 Meq Inj) 1,000 ml @ 125 mls/hr Q8H IV 05/24/16 22:09 05/25/16 04:37 (NS Flush) 2 ml UNSCH PRN IVF 05/24/16 22:15 IV Flush 2 ml 2 ml BID IVF 05/25/16 09:00 05/25/16 09:00 (Flagyl 500 Mg Inj) 100 ml @ 200 mls/hr Q8H IV 05/24/16 23:00 05/25/16 15:29 05/25/16 05:46 (Squires 5-325 Mg) 1 tab Q4H PRN PO 05/24/16 22:15 (Squires 5-325 Mg) 2 tab Q4H PRN PO 05/24/16 22:15 (Toradol Inj) 30 mg Q6H PRN IVP 05/24/16 22:15 05/27/16 22:14 (Tylenol) 650 mg Q4H PRN PO 05/24/16 22:15 (Protonix Inj) 40 mg DAILY IVP 05/25/16 09:00 05/24/16 22:09 (Protonix) 40 mg DAILY PO 05/25/16 09:00 05/25/16 09:07 (Reglan Inj) 10 mg Q12HR IVS 05/25/16 09:00 05/25/16 09:06 (Zofran Inj) 4 mg Q6H PRN IV 05/24/16 22:15 (Vasotec Inj) 1.25 mg Q4H PRN IV 05/24/16 22:15 (Vasotec Inj) 2.5 mg Q6H PRN IV 05/24/16 22:15 Benzocaine/ Menthol 1 lozenge 1 lozenge UNSCH PRN SUCK-ON 05/24/16 22:15 Potassium Chloride 100 ml @ 50 mls/hr UNSCH PRN IV 05/24/16 22:15 (KCl 40 Meq Premix Inj) 100 ml @ 25 mls/hr UNSCH PRN IV 05/24/16 22:15 (Narcan Inj) 0.4 mg UNSCH PRN IV 05/24/16 22:15 (Morphine 1 Mg/ ml COURT SECURITY OFFICER) 30 mg UNSCH IV 05/24/16 22:15 05/24/16 23:03 [address] SECURITY OFFICER Dosage Infused (Pha) 1 Q8HR .XX 05/24/16 22:15 05/25/16 06:00 A/P Assessment and Plan PERFORATED BOWEL S/P COLONOSCOPY FOR GIB AND BLOOD LOSS ANEMIA MAY 23. OPEN REPAIR MAY 24 WITH NEW OSTOMY PLACEMENT. SEVERE SEPSIS LACTIC ACIDOSIS KATHRINE DM HTN PAD R BKA CVA. Mitral valve replacement, on coumadin therapy. Coronary artery disease with a history of CABG PLAN: RENAL US LOWER IVF IV ABX RESTART COUMADIN WHEN OK WITH SURGERY. INSULIN BLOOD CULTURES COLORECTAL CONSULT ID CONSULT HOLD PLAVIX HOLD CILOSTAZOL TOPROL XL STATIN PT OT ST AM LABS Problem List: (1) Perforated bowel Status: Acute (2) KATHRINE (acute kidney injury) Status: Acute Plan: Any not admission 2.63. Baseline appears to be 1.5. (3) Anemia Status: Acute Plan: Hemoglobin on admission 10.3. This appears to be the patient's baseline. (4) FEN Status: Acute Victor Manuel Jones MD May 25, 2016 10:16
[2016-05-25] MEDS: DEXT 5%-NACL 0.9% 1000 ML INJ 1,000 ML IV SCH (11:29)
[2016-05-25] MEDS ORDERED: WARFARIN SOD 5 MG TAB PO SCH (16:00)
[2016-05-25] MEDS: MORPHINE SULFATE 30 MG/30 ML PCA IV SCH (16:36)
--- NOTE | 2016-05-25 16:50 | MB ---
cc: EMMANUEL GREENWOOD MD, FRANKLYN F. MD DATE OF CONSULTATION: 05/25/[address] Greenwood. REASON FOR CONSULTATION Severe sepsis. HISTORY OF PRESENT ILLNESS This is a 60-year-old white male who was admitted to the hospital following colonoscopy. The patient developed abdominal pain and he was eventually found to have bowel perforation. He went to surgery yesterday evening for bowel resection. Today's white count is 4.6 with 48% bands. Blood cultures were taken today and the results are pending. The patient had a UTI with Group D enterococcus detected on 05/24. Currently he is very drowsy but he is in no acute distress. He notes that he has abdominal pain in the abdomen. Chest x-ray yesterday showed no acute infiltrates. CT scan of the abdomen revealed a large amount of air in the subcutaneous fat of the lower left quadrant. PAST MEDICAL HISTORY 1. Diabetes mellitus. 2. Hypertension. 3. Coronary artery bypass graft surgery. 4. CVA x2. 5. 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 ALLERGIES NO KNOWN DRUG ALLERGIES. MEDICATIONS 1. Piperacillin/tazobactam. 2. Vancomycin one dose was given on 05/24. 3. Morphine sulfate via CLIENT SERVICES ASSISTANT. 4. Reglan. 5. Protonix. 6. Toprol XL. SOCIAL HISTORY No tobacco or alcohol. No illicit drugs. Reported marijuana use. FAMILY HISTORY Noncontributory. REVIEW OF SYSTEMS Significant for abdominal pain. Otherwise negative. PHYSICAL EXAMINATION GENERAL: This is a moderately obese male who is in no acute distress. He is somnolent. VITAL SIGNS: Temperature 98.2, BP 136/66. Heart rate 84. HEENT: Head is atraumatic. Extraocular movements grossly intact. Pupils reactive to light. No icterus. Oropharynx - dry mucosa. NECK: Supple. No adenopathy. No swelling. LUNGS: Rhonchi at both bases. HEART: Normal S1 and S2 without murmurs. ABDOMEN: Soft. Surgical dressing in place. There is a drainage catheter that exits the wound bed at the midabdomen which has serous drainage. RECTAL: Not performed. EXTREMITIES: No clubbing or cyanosis. The left foot has trace edema and is cool to touch. I NEUROLOGIC: Nonfocal. SKIN: No diffuse rash. LABORATORY DATA WBC 4.6, platelets 159, 89% neutrophils, hemoglobin 10.2, creatinine 2.08, BUN 24, sodium 140. IMPRESSION 1. Sepsis secondary to perforated bowel. 2. Urinary tract infection due to group D enterococcus. 3. Chronic renal insufficiency. 4. Patient status post bowel resection. RECOMMENDATIONS 1. Continue piperacillin/tazobactam. 2. Monitor blood cultures. 3. Vancomycin per pharmacy dosing. 4. Monitor white blood cell count. 5. Monitor clinical status. Thank you this consultation. The patient's progress will be monitored and further recommendations will be given on followup. Julio Cesar Hess MD FD/GUERO /3:51 PM /4:08 PM
[2016-05-25] MEDS: ATORVASTATIN 10 MG TAB PO SCH (21:55)
[2016-05-25] MEDS: LATANOPROST 0.005% OPHT SOLN 2.5 ML BTL EACH EYE SCH (21:56)
--- NOTE | 2016-05-25 22:11 | HHI.PR ---
Subjective Remarks C/R Surg POD#1 afebrile, VSS UO good VIJAY mod Objective - Vital Signs Date Time Temp Pulse Resp B/P Pulse Ox O2 Delivery O2 Flow Rate FiO2 05/25/16 19:00 99 Nasal Cannula 2.00 05/25/16 18:00 94 05/25/16 16:36 17 05/25/16 16:00 98.7 168/75 Result Diagram: 05/25/1634405/25/16344 Objective Remarks PE alert Abd - soft, wound dry, stoma pink A/P Assessment and Plan Imp: stable post-op OOB PT cont IVF Ab's tx to floor Helder Fuller MD May 25, 2016 22:11
--- NOTE | 2016-05-25 22:25 | EKG ---
Date Performed: 05/24/2016 Time Performed: 13:15:18 PTAGE: 60 years EKG: Sinus rhythm SEPTAL MYOCARDIAL INFARCTION Compared to previous tracing, the criteria for the possible septal infa rct are new. ABNORMAL ECG PREVIOUS TRACING : 04/04/2016 09.45 DOCTOR: Meghna Sousa Interpretating Date/Time 05/25/2016 22:24:20
[2016-05-26] VITALS (14 sets, daily range): BP systolic 122–183; BP diastolic 58–91; PULSE 85–101; RESP 11–20; TEMP 98.2–99.1; O2SAT 95–98
[2016-05-26] MEDS: DEXT 5%-NACL 0.9% 1000 ML INJ 1,000 ML IV SCH (03:32)
[2016-05-26] MEDS: PIPERACIL-TAZO 2.25 GM PREMIX 50 ML IV SCH ×4 (03:32→19:50)
[2016-05-26] MEDS: hydrALAZINE HCL 20 MG/ML VIAL IV PUSH PRN ×2 (03:32→15:43)
[2016-05-26] MEDS: PCA - TOTAL MG MORPHINE DELIVERED PER SHIFT SCH ×3 (05:58→21:25)
[2016-05-26] MEDS: INSULIN ASPART SUPPLEMENTAL SCALE SQ SCH ×4 (06:28→20:05)
--- NOTE | 2016-05-26 08:09 | HHI.FPPN ---
Subjective Remarks C/O HUNGER C/O ABDOM PAIN D/W RN Objective Vitals Vital Signs Date Time Temp Pulse Resp B/P Pulse Ox O2 Delivery O2 Flow Rate FiO2 05/26/16 07:00 98 Nasal Cannula 2.00 05/26/16 06:00 89 05/26/16 06:00 12 05/26/16 05:58 12 05/26/16 04:00 94 05/26/16 04:00 98.6 94 20 122/58 98 05/26/16 02:00 90 05/26/16 00:00 90 05/26/16 00:00 98.8 90 16 163/71 97 05/25/16 22:00 90 05/25/16 22:00 17 05/25/16 22:00 17 05/25/16 20:14 100 Nasal Cannula 2.00 05/25/16 20:00 90 05/25/16 20:00 99.5 90 18 167/79 94 Arterial Line 05/25/16 19:00 99 Nasal Cannula 2.00 05/25/16 18:00 94 05/25/16 16:36 17 05/25/16 16:00 98.7 93 25 168/75 100 05/25/16 16:00 94 05/25/16 14:00 10 05/25/16 14:00 10 05/25/16 14:00 86 05/25/16 12:00 86 05/25/16 12:00 98.2 87 21 110/66 98 05/25/16 10:00 101 I/O 05/25/16 05/25/16 05/25/16 05/26/16 05/26/16 05/26/16 07:00 15:00 23:00 07:00 15:00 23:00 Intake Total 1842 ml 897 ml 968 ml 595 ml Output Total 905 ml 600 ml 580 ml 485 ml Balance 937 ml 297 ml 388 ml 110 ml Intake Oral 0 ml 120 ml IV Total 1842 ml 897 ml 848 ml 595 ml Output Urine Total 580 ml 500 ml 500 ml 375 ml Stool Total 0 ml 0 ml 0 ml 0 ml Drainage Total 325 ml 100 ml 80 ml 110 ml Result Diagram: 05/25/16 0345 05/25/16 0345 Objective Remarks GENERAL: SKIN: Warm and dry. HEAD: Atraumatic. Normocephalic. EYES: Pupils equal and round. No scleral icterus. No injection or drainage. ENT: No nasal bleeding or discharge. Mucous membranes pink and moist. NECK: Trachea midline. No JVD. CARDIOVASCULAR: Regular rate and rhythm. RESPIRATORY: No accessory muscle use. Clear to auscultation. Breath sounds equal bilaterally. GASTROINTESTINAL: Abdomen soft, non-tender, nondistended. Hepatic and splenic margins not palpable. R VIJAY W SEROSANG, LARGE MIDLINE INCISION CDI, OLD OSTOMY SITE PACKED, NEW LUQ OSTOMY W NORMAL STOOL AND STOMA MUSCULOSKELETAL: Extremities without clubbing, cyanosis, 1 PLUS EDEMA LLE AND FACE. R AKA NEUROLOGICAL: Awake and alert. No obvious cranial nerve deficits. Motor grossly within normal limits. Aphasic, 1/5 L YAO, 4/5 RUE. AKA. PSYCHIATRIC: Appropriate mood and affect; insight and judgment normal. Medications and IVs Current Medications Medications (Trade) Dose Ordered Sig/Celestine Route Start Time Stop Time Status Last Admin (Ativan Inj) 0.5 mg Q6H PRN IV PUSH 05/24/16 18:30 Clonidine 0.1 mg 0.1 mg Q6H PRN PO 05/24/16 18:30 (Coumadin Consult Pharmacy) 0 ml @ 0 mls/hr UNSCH OTHER 05/24/16 18:30 Hydralazine HCl 20 mg 20 mg Q4H PRN IV PUSH 05/24/16 18:30 05/26/16 03:32 Piperacillin Sod/ Tazobactam Sod 50 ml @ 100 mls/hr Q6H IV 05/24/16 21:00 05/26/16 03:32 (Vancomycin Consult Pharmacy) 0 ml @ 0 mls/hr UNSCH XX 05/24/16 18:30 (D50w (Vial) Inj) 25 ml UNSCH PRN IV PUSH 05/24/16 18:45 (Glucagon Inj) 1 mg UNSCH PRN OTHER 05/24/16 18:45 (Lipitor) 10 mg HS PO 05/24/16 21:00 05/25/16 21:55 (Toprol Xl) 100 mg DAILY PO 05/25/16 09:00 05/25/16 09:07 Patient Own Medication PT OWN MED: SIMBR... BID EACH EYE 05/24/16 21:00 Hold (Xalatan 0.005% Opth Soln) 1 drop HS EACH EYE 05/24/16 21:00 05/25/16 21:56 (NS Flush) 2 ml UNSCH PRN IVF 05/24/16 22:15 (NS Flush) 2 ml BID IVF 05/25/16 09:00 05/25/16 21:55 ([place] 5-325 Mg) 1 tab Q4H PRN PO 05/24/16 22:15 ([place] 5-325 Mg) 2 tab Q4H PRN PO 05/24/16 22:15 (Toradol Inj) 30 mg Q6H PRN IVP 05/24/16 22:15 05/27/16 22:14 (Tylenol) 650 mg Q4H PRN PO 05/24/16 22:15 (Protonix Inj) 40 mg DAILY IVP 05/25/16 09:00 05/24/16 22:09 (Protonix) 40 mg DAILY PO 05/25/16 09:00 05/25/16 09:07 (Reglan Inj) 10 mg Q12HR IVS 05/25/16 09:00 05/25/16 21:55 (Zofran Inj) 4 mg Q6H PRN IV 05/24/16 22:15 (Vasotec Inj) 1.25 mg Q4H PRN IV 05/24/16 22:15 (Vasotec Inj) 2.5 mg Q6H PRN IV 05/24/16 22:15 Benzocaine/ Menthol 1 lozenge 1 lozenge UNSCH PRN SUCK-ON 05/24/16 22:15 Potassium Chloride 100 ml @ 50 mls/hr UNSCH PRN IV 05/24/16 22:15 (KCl 40 Meq Premix Inj) 100 ml @ 25 mls/hr UNSCH PRN IV 05/24/16 22:15 (Narcan Inj) 0.4 mg UNSCH PRN IV 05/24/16 22:15 (Morphine 1 Mg/ ml DESIZING MACHINE OFFBEARER) 30 mg UNSCH IV 05/24/16 22:15 05/25/16 16:36 DESIZING MACHINE OFFBEARER Dosage Infused (Pha) 1 Q8HR .XX 05/24/16 22:15 05/26/16 05:58 A/P Assessment and Plan PERFORATED BOWEL S/P COLONOSCOPY FOR GIB AND BLOOD LOSS ANEMIA MAY 23. OPEN REPAIR MAY 24 WITH NEW OSTOMY PLACEMENT. SEVERE SEPSIS LACTIC ACIDOSIS KATHRINE DM HTN PAD R BKA CVA. Mitral valve replacement, on coumadin therapy. Coronary artery disease with a history of CABG PLAN: RESTART COUMADIN WHEN OK WITH SURGERY. RENAL US LOWER IVF IV ABX INSULIN BLOOD CULTURES COLORECTAL CONSULT ID CONSULT HOLD PLAVIX HOLD CILOSTAZOL TOPROL XL STATIN PT OT ST AM LABS Problem List: (1) Perforated bowel Status: Acute (2) KATHRINE (acute kidney injury) Status: Acute Plan: Any not admission 2.63. Baseline appears to be 1.5. (3) Anemia Status: Acute Plan: Hemoglobin on admission 10.3. This appears to be the patient's baseline. (4) FEN Status: Acute Victor Manuel Jones MD May 26, 2016 08:09
[2016-05-26] MEDS ORDERED: DEXTROSE 5%-LACTATED RING INJ 1,000 ML IV SCH (09:00)
[2016-05-26] MEDS: METOPROLOL SUCCINATE 50 MG EXTENDED RELEASE TAB PO SCH (09:10)
[2016-05-26] MEDS: PANTOPRAZOLE SODIUM 40 MG VIAL IVP SCH (09:11)
[2016-05-26] MEDS: PANTOPRAZOLE SOD 40 MG DELAYED RELEASE TAB PO SCH (09:11)
[2016-05-26] MEDS: METOCLOPRAMIDE HCL 10 MG/2 ML VIAL IVS SCH ×2 (09:11→19:50)
[2016-05-26] MEDS: SODIUM CHLORIDE 0.9% FLUSH 5 ML FLUSH IVF SCH ×2 (09:11→19:51)
[2016-05-26] MEDS: LACTATED RINGER'S 1000 ML INJ 1,000 ML IV SCH ×2 (11:00→19:51)
--- NOTE | 2016-05-26 11:00 | HHI.PR ---
Subjective Remarks Awake,alert,oriented. No N or V. + flatus in Colostomy bag. Not sure if he has appetite. Objective Vital Signs Date Time Temp Pulse Resp B/P Pulse Ox O2 Delivery O2 Flow Rate FiO2 05/26/16 10:00 91 05/26/16 08:00 98.7 90 12 142/75 97 05/26/16 08:00 89 05/26/16 07:00 98 Nasal Cannula 2.00 05/26/16 06:00 89 05/26/16 06:00 12 05/26/16 05:58 12 05/26/16 04:00 94 05/26/16 04:00 98.6 94 20 122/58 98 05/26/16 02:00 90 05/26/16 00:00 90 05/26/16 00:00 98.8 90 16 163/71 97 05/25/16 22:00 90 05/25/16 22:00 17 05/25/16 22:00 17 05/25/16 20:14 100 Nasal Cannula 2.00 05/25/16 20:00 90 05/25/16 20:00 99.5 90 18 167/79 94 Arterial Line 05/25/16 19:00 99 Nasal Cannula 2.00 05/25/16 18:00 94 05/25/16 16:36 17 05/25/16 16:00 98.7 93 25 168/75 100 05/25/16 16:00 94 05/25/16 14:00 10 05/25/16 14:00 10 05/25/16 14:00 86 05/25/16 12:00 86 05/25/16 12:00 98.2 87 21 110/66 98 I/O 05/25/16 05/25/16 05/25/16 05/26/16 05/26/16 05/26/16 07:00 15:00 23:00 07:00 15:00 23:00 Intake Total 1842 ml 897 ml 968 ml 595 ml Output Total 905 ml 600 ml 580 ml 485 ml Balance 937 ml 297 ml 388 ml 110 ml Intake Oral 0 ml 120 ml IV Total 1842 ml 897 ml 848 ml 595 ml Output Urine Total 580 ml 500 ml 500 ml 375 ml Stool Total 0 ml 0 ml 0 ml 0 ml Drainage Total 325 ml 100 ml 80 ml 110 ml Result Diagram: 05/25/16 0345 05/25/16 0345 Objective Remarks VS-S Abd: obese,soft,midline wound clean. Old stoma site clean. Wet to dry Q12H Labs: OK. He has at least grade III renal insufficiency from last admit. BUN/Cr sl increased due to pre renal and fluid shifts I&Os: OK Assessment and Plan Assessment and Plan Stable POD#2. Azotemia secondary to pre existing, pre-renal and CAD. Transfer to . Plan: will D/C NSS and KCL. Will start LRS even though there is minimal K+. Should be OK. Will remove Dextrose. Await PT/INR today. Start Lovenox for now. Will restart Coumadin when appropriate. Appreciate Medical service taking care of Insulin coverage sliding scale. Pt had spillage at surgery but acute and was washed should require minimal antibiotics to avoid C. Diff. Will leave to ID. Vazquez Dominguez MD May 26, 2016 11:00
[2016-05-26 11:17] LABS: AUTOMATED NEUTROPHIL # 7.2 TH/MM3 (1.8-7.7); BASOPHIL % 0.1 % (0.0-2.0); EOSINOPHIL % 0.4 % (0.0-4.0); HEMATOCRIT 27.8 % (39.0-51.0); HEMO FLAGS DIFF FINAL; LYMPH % 8.5 % (9.0-44.0); LYMPHOCYTE # 0.7 TH/MM3 (1.0-4.8); MEAN CELL VOLUME 88.6 FL (80.0-100.0); MEAN CORPUSCULAR HEMOGLOBIN 28.6 PG (27.0-34.0); MEAN CORPUSCULAR HGB CONC 32.3 % (32.0-36.0); MONO % 6.1 % (0.0-8.0); NEUT % 84.9 % (16.0-70.0); PLATELET COUNT 180 TH/MM3 (150-450); RED BLOOD COUNT 3.14 MIL/MM3 (4.50-5.90); RED CELL DISTRIBUTION WIDTH 15.6 % (11.6-17.2); WHITE BLOOD COUNT 8.5 TH/MM3 (4.0-11.0)
[2016-05-26 11:35] LABS: INTERNATIONAL NORMALIZED RATIO 1.9 RATIO; PROTHROMBIN TIME - PATIENT 21.4 SEC (9.8-11.6)
[2016-05-26 11:57] LABS: BICARBONATE 22.7 MEQ/L (21.0-32.0); POTASSIUM 3.9 MEQ/L (3.5-5.1)
[2016-05-26] MEDS: ENOXAPARIN SODIUM 30 MG/0.3 ML SYRINGE SQ SCH (12:18)
[2016-05-26] MEDS: MORPHINE SULFATE 30 MG/30 ML PCA IV SCH (13:21)
[2016-05-26] MEDS: ATORVASTATIN 10 MG TAB PO SCH (19:50)
[2016-05-26] MEDS: LATANOPROST 0.005% OPHT SOLN 2.5 ML BTL EACH EYE SCH (19:51)
--- NOTE | 2016-05-26 22:55 | RADRPT ---
EXAM DATE/TIME: 05/26/2016 21:24 [place] COMPARISON: US KIDNEY/RENAL/BLADDER, June 11, 2012, 9:07. INDICATIONS : Increased BUN and Creatinine. MEDICAL HISTORY : Hypercholesterolemia. Hypertension. Hearing loss. Cerebrovascular accident. Arthritis. Diabetes. Bl ood transfusion. MDRO. MRSA. VRE. SURGICAL HISTORY : CABG. Colostomy. Mitral valve replacement. Right leg above the knee amputation. ENCOUNTER: Initial ACUITY: 1 day PAIN SCORE: 5/10 LOCATION: Bilateral flank MEASUREMENTS: RIGHT KIDNEY: 10.3 x 5.6 x 5.4 cm LEFT KIDNEY: 10.0 x 5.7 x 6.0 cm FINDINGS: RIGHT KIDNEY: Renal cortex is normal in thickness and mildly echogenic No hydronephrosis, stone, or mass. LEFT KIDNEY: Renal cortex is normal in thickness and e mildly echogenic . No hydronephrosis, stone, or mass. BLADDER: Bladder is not imaged because of bandage. CONCLUSION: Echogenic kidneys slightly small in size without hydronephrosis. Hamilton Ross MD FACR on May 26, 2016 at 22:52 Board Certified Radiologist. This report was verified electronically.
[2016-05-27] VITALS (7 sets, daily range): BP systolic 154–186; BP diastolic 74–98; PULSE 78–103; RESP 16–21; TEMP 95.8–98.9; O2SAT 95–99
[2016-05-27] MEDS: PIPERACIL-TAZO 2.25 GM PREMIX 50 ML IV SCH ×2 (04:32→08:47)
[2016-05-27] MEDS: PCA - TOTAL MG MORPHINE DELIVERED PER SHIFT SCH ×3 (04:32→21:11)
[2016-05-27] MEDS: LACTATED RINGER'S 1000 ML INJ 1,000 ML IV SCH (04:33)
[2016-05-27] MEDS: INSULIN ASPART SUPPLEMENTAL SCALE SQ SCH ×4 (06:18→21:00)
[2016-05-27 07:11] LABS: AUTOMATED NEUTROPHIL # 5.9 TH/MM3 (1.8-7.7); BASOPHIL % 0.4 % (0.0-2.0); EOSINOPHIL # 0.1 TH/MM3 (0-0.4); EOSINOPHIL % 1.7 % (0.0-4.0); HEMATOCRIT 27.9 % (39.0-51.0); HEMO FLAGS DIFF FINAL; LYMPH % 9.8 % (9.0-44.0); LYMPHOCYTE # 0.7 TH/MM3 (1.0-4.8); MEAN CELL VOLUME 87.9 FL (80.0-100.0); MEAN CORPUSCULAR HEMOGLOBIN 28.5 PG (27.0-34.0); MEAN CORPUSCULAR HGB CONC 32.4 % (32.0-36.0); MONO % 5.6 % (0.0-8.0); NEUT % 82.5 % (16.0-70.0); PLATELET COUNT 160 TH/MM3 (150-450); RED BLOOD COUNT 3.18 MIL/MM3 (4.50-5.90); RED CELL DISTRIBUTION WIDTH 15.5 % (11.6-17.2); WHITE BLOOD COUNT 7.1 TH/MM3 (4.0-11.0)
[2016-05-27 07:33] LABS: BICARBONATE 22.6 MEQ/L (21.0-32.0); POTASSIUM 3.5 MEQ/L (3.5-5.1)
[2016-05-27 07:34] LABS: INTERNATIONAL NORMALIZED RATIO 1.7 RATIO; PROTHROMBIN TIME - PATIENT 19.1 SEC (9.8-11.6)
--- NOTE | 2016-05-27 08:25 | HHI.PR ---
Subjective Remarks Awake,alert,oriented. No N or V. 600cc PO yesterday Objective Vital Signs Date Time Temp Pulse Resp B/P Pulse Ox O2 Delivery O2 Flow Rate FiO2 05/27/16 04:32 22 05/27/16 04:00 98.2 88 21 186/88 96 05/27/16 00:00 97.2 85 19 184/85 95 05/26/16 23:00 Nasal Cannula 2.00 05/26/16 22:30 98.2 97 20 183/91 98 05/26/16 21:25 18 05/26/16 20:42 96 Nasal Cannula 2.00 05/26/16 20:00 99.0 101 18 141/70 95 05/26/16 20:00 100 05/26/16 19:00 98 Nasal Cannula 2.00 05/26/16 18:00 90 05/26/16 16:00 87 05/26/16 16:00 98.9 87 11 161/77 95 05/26/16 14:00 15 05/26/16 14:00 11 05/26/16 14:00 85 05/26/16 13:26 11 05/26/16 13:21 15 05/26/16 12:00 99.1 91 14 165/76 95 05/26/16 12:00 91 05/26/16 10:00 91 05/26/16 09:50 97 21 I/O 05/26/16 05/26/16 05/26/16 05/27/16 05/27/16 05/27/16 07:00 15:00 23:00 07:00 15:00 23:00 Intake Total 595 ml 907 ml 230 ml 950 ml Output Total 485 ml 650 ml 950 ml 1200 ml Balance 110 ml 257 ml -720 ml -250 ml Intake Oral 250 ml 120 ml 240 ml IV Total 595 ml 657 ml 110 ml 710 ml Output Urine Total 375 ml 550 ml 850 ml 1100 ml Stool Total 0 ml 0 ml 0 ml 0 ml Drainage Total 110 ml 100 ml 100 ml 100 ml Result Diagram: 05/27/1663505/27/1636 Objective Remarks VS-S Abd: obese,soft,midline wound clean. Old stoma site clean. Labs: OK I&Os: OK Assessment and Plan Assessment and Plan Stable POD#3. Plan: Will start 1800 hannah diet. On Lovenox. Will restart Coumadin. Must be OOB. Ready for D/C in next day or so if tolerates PO well Vazquez Dominguez MD May 27, 2016 08:25
[2016-05-27] MEDS: PANTOPRAZOLE SOD 40 MG DELAYED RELEASE TAB PO SCH (08:47)
[2016-05-27] MEDS: METOPROLOL SUCCINATE 50 MG EXTENDED RELEASE TAB PO SCH (08:48)
[2016-05-27] MEDS: SODIUM CHLORIDE 0.9% FLUSH 5 ML FLUSH IVF SCH ×2 (08:48→21:10)
[2016-05-27] MEDS: PANTOPRAZOLE SODIUM 40 MG VIAL IVP SCH (08:48)
[2016-05-27] MEDS: METOCLOPRAMIDE HCL 10 MG/2 ML VIAL IVS SCH ×2 (08:48→21:10)
[2016-05-27] MEDS: ENOXAPARIN SODIUM 30 MG/0.3 ML SYRINGE SQ SCH (08:48)
--- NOTE | 2016-05-27 09:51 | HHI.FPPN ---
Subjective Remarks AUDIBLE RONCHI MORE CONFUSED ALMOST TO BASELINE LADIES [employer]OCKER ROOM ATTENDANT AT [facility], SHE STATES HE IS DOING PRETTY WELL D/W RN Objective Vitals Vital Signs Date Time Temp Pulse Resp B/P Pulse Ox O2 Delivery O2 Flow Rate FiO2 05/27/16 08:48 98 Nasal Cannula 3.00 05/27/16 08:00 98.9 84 20 183/98 99 05/27/16 04:32 22 05/27/16 04:00 98.2 88 21 186/88 96 05/27/16 00:00 97.2 85 19 184/85 95 05/26/16 23:00 Nasal Cannula 2.00 05/26/16 22:30 98.2 97 20 183/91 98 05/26/16 21:25 18 05/26/16 20:42 96 Nasal Cannula 2.00 05/26/16 20:00 99.0 101 18 141/70 95 05/26/16 20:00 100 05/26/16 19:00 98 Nasal Cannula 2.00 05/26/16 18:00 90 05/26/16 16:00 87 05/26/16 16:00 98.9 87 11 161/77 95 05/26/16 14:00 15 05/26/16 14:00 11 05/26/16 14:00 85 05/26/16 13:26 11 05/26/16 13:21 15 05/26/16 12:00 99.1 91 14 165/76 95 05/26/16 12:00 91 05/26/16 10:00 91 05/26/16 09:50 97 21 I/O 05/26/16 05/26/16 05/26/16 05/27/16 05/27/16 05/27/16 07:00 15:00 23:00 07:00 15:00 23:00 Intake Total 595 ml 907 ml 230 ml 950 ml Output Total 485 ml 650 ml 950 ml 1200 ml Balance 110 ml 257 ml -720 ml -250 ml Intake Oral 250 ml 120 ml 240 ml IV Total 595 ml 657 ml 110 ml 710 ml Output Urine Total 375 ml 550 ml 850 ml 1100 ml Stool Total 0 ml 0 ml 0 ml 0 ml Drainage Total 110 ml 100 ml 100 ml 100 ml Result Diagram: 05/27/16 0636 05/27/16635 Objective Remarks GENERAL: SKIN: Warm and dry. HEAD: Atraumatic. Normocephalic. EYES: Pupils equal and round. No scleral icterus. No injection or drainage. ENT: No nasal bleeding or discharge. Mucous membranes pink and moist. NECK: Trachea midline. No JVD. CARDIOVASCULAR: Regular rate and rhythm. RESPIRATORY: No accessory muscle use. HARSHC COUGH, RONCHI TO APICES GASTROINTESTINAL: Abdomen soft, non-tender, nondistended. Hepatic and splenic margins not palpable. R VIJAY W SEROSANG, LARGE MIDLINE INCISION CDI, OLD OSTOMY SITE PACKED, NEW LUQ OSTOMY W NORMAL STOOL AND STOMA MUSCULOSKELETAL: Extremities without clubbing, cyanosis, 1 PLUS EDEMA LLE AND FACE. R AKA NEUROLOGICAL: Awake and alert. No obvious cranial nerve deficits. Motor grossly within normal limits. Aphasic, 1/5 L YAO, 4/5 RUE. AKA. PSYCHIATRIC: Appropriate mood and affect; insight and judgment normal. Medications and IVs Current Medications Medications (Trade) Dose Ordered Sig/Celestine Route Start Time Stop Time Status Last Admin (Ativan Inj) 0.5 mg Q6H PRN IV PUSH 05/24/16 18:30 Clonidine 0.1 mg 0.1 mg Q6H PRN PO 05/24/16 18:30 05/26/16 10:32 (Coumadin Consult Pharmacy) 0 ml @ 0 mls/hr UNSCH OTHER 05/24/16 18:30 Hydralazine HCl 20 mg 20 mg Q4H PRN IV PUSH 05/24/16 18:30 05/26/16 15:43 Piperacillin Sod/ Tazobactam Sod 50 ml @ 100 mls/hr Q6H IV 05/24/16 21:00 05/27/16 08:47 (Vancomycin Consult Pharmacy) 0 ml @ 0 mls/hr UNSCH XX 05/24/16 18:30 (D50w (Vial) Inj) 25 ml UNSCH PRN IV PUSH 05/24/16 18:45 (Glucagon Inj) 1 mg UNSCH PRN OTHER 05/24/16 18:45 (Lipitor) 10 mg HS PO 05/24/16 21:00 05/26/16 19:50 (Toprol Xl) 100 mg DAILY PO 05/25/16 09:00 05/27/16 08:48 Patient Own Medication PT OWN MED: SIMBR... BID EACH EYE 05/24/16 21:00 Hold ([place] 0.005% Opth Soln) 1 drop HS EACH EYE 05/24/16 21:00 05/26/16 19:51 (NS Flush) 2 ml UNSCH PRN IVF 05/24/16 22:15 (NS Flush) 2 ml BID IVF 05/25/16 09:00 05/27/16 08:48 ([place] 5-325 Mg) 1 tab Q4H PRN PO 05/24/16 22:15 ([place] 5-325 Mg) 2 tab Q4H PRN PO 05/24/16 22:15 (Tylenol) 650 mg Q4H PRN PO 05/24/16 22:15 (Protonix Inj) 40 mg DAILY IVP 05/25/16 09:00 05/24/16 22:09 (Protonix) 40 mg DAILY PO 05/25/16 09:00 05/27/16 08:47 (Reglan Inj) 10 mg Q12HR IVS 05/25/16 09:00 05/27/16 08:48 (Zofran Inj) 4 mg Q6H PRN IV 05/24/16 22:15 (Vasotec Inj) 1.25 mg Q4H PRN IV 05/24/16 22:15 05/27/16 01:20 (Vasotec Inj) 2.5 mg Q6H PRN IV 05/24/16 22:15 05/27/16 06:18 Benzocaine/ Menthol 1 lozenge 1 lozenge UNSCH PRN SUCK-ON 05/24/16 22:15 Potassium Chloride 100 ml @ 50 mls/hr UNSCH PRN IV 05/24/16 22:15 (KCl 40 Meq Premix Inj) 100 ml @ 25 mls/hr UNSCH PRN IV 05/24/16 22:15 (Narcan Inj) 0.4 mg UNSCH PRN IV 05/24/16 22:15 (Morphine 1 Mg/ ml SHOPPING INVESTIGATOR) 30 mg UNSCH IV 05/24/16 22:15 05/26/16 13:21 SHOPPING INVESTIGATOR Dosage Infused (Pha) 1 Q8HR .XX 05/24/16 22:15 05/27/16 04:32 Enoxaparin Sodium 30 mg 30 mg DAILY SQ 05/26/16 12:00 05/27/16 08:48 (Vancomycin Inj/ NS 500 ml Inj) 517.5 ml @ 250 mls/hr Q24H IV 05/27/16 11:00 Warfarin Sodium 5 mg 5 mg DAILY@1600 PO 05/27/16 16:00 (KCl Inj/Lr 1000 ml Inj) 1,010 ml @ 50 mls/hr [id number] IV 05/27/16 09:00 Miscellaneous Information SPECIFIC LAB TO BE DRAWN:VANCO TROUGH DATE TO... ONCE ONCE XX 05/29/16 10:45 05/29/16 10:46 A/P Assessment and Plan PERFORATED BOWEL S/P COLONOSCOPY FOR GIB AND BLOOD LOSS ANEMIA MAY 23. OPEN REPAIR MAY 24 WITH NEW OSTOMY PLACEMENT. SEVERE SEPSIS FLUID OVERLOAD VS HCAP LACTIC ACIDOSIS KATHRINE. RENAL US SHOWED MRD. DM HTN PAD R BKA CVA. Mitral valve replacement, on coumadin therapy. Coronary artery disease with a history of CABG PLAN: RESTART COUMADIN STOP IVF START LASIX BID IV ABX INSULIN BLOOD CULTURES COLORECTAL CONSULT ID CONSULT HOLD PLAVIX HOLD CILOSTAZOL TOPROL XL STATIN PT OT ST AM LABS SEE MY ORDERS PLEASE. Problem List: (1) Perforated bowel Status: Acute (2) KATHRINE (acute kidney injury) Status: Acute Plan: Any not admission 2.63. Baseline appears to be 1.5. (3) Anemia Status: Acute Plan: Hemoglobin on admission 10.3. This appears to be the patient's baseline. (4) FEN Status: Acute Victor Manuel Jones MD May 27, 2016 09:51
[2016-05-27] MEDS ORDERED: VANCOMYCIN INJ 1,750 MG in SODIUM CHLORID 0.9% 500 ML INJ 500 ML IV SCH (11:00)
[2016-05-27] MEDS: POTASSIUM CHLORIDE INJ 20 MEQ in LACTATED RINGER'S 1000 ML INJ 1,000 ML IV SCH (12:05)
[2016-05-27] MEDS: WARFARIN SOD 5 MG TAB PO SCH (14:08)
[2016-05-27] MEDS: PIPERACIL-TAZO 3.375 GM PREMIX 50 ML IV SCH ×2 (14:25→21:10)
[2016-05-27] MEDS: MORPHINE SULFATE 30 MG/30 ML PCA IV SCH (14:40)
[2016-05-27] MEDS: FUROSEMIDE 40 MG/4 ML VIAL IV PUSH SCH (16:28)
[2016-05-27] MEDS: LATANOPROST 0.005% OPHT SOLN 2.5 ML BTL EACH EYE SCH (21:00)
[2016-05-27] MEDS: ATORVASTATIN 10 MG TAB PO SCH (21:11)
[2016-05-28] VITALS (7 sets, daily range): BP systolic 137–179; BP diastolic 70–92; PULSE 76–90; RESP 17–19; TEMP 97.4–99; O2SAT 95–100
[2016-05-28] MEDS: PIPERACIL-TAZO 3.375 GM PREMIX 50 ML IV SCH (02:36)
[2016-05-28] MEDS: PCA - TOTAL MG MORPHINE DELIVERED PER SHIFT SCH (04:55)
[2016-05-28] MEDS: MORPHINE SULFATE 30 MG/30 ML PCA IV SCH (05:10)
[2016-05-28 05:13] LABS: INTERNATIONAL NORMALIZED RATIO 2.1 RATIO; PROTHROMBIN TIME - PATIENT 24.1 SEC (9.8-11.6)
[2016-05-28 05:22] LABS: AUTOMATED NEUTROPHIL # 6.1 TH/MM3 (1.8-7.7); BASOPHIL % 0.2 % (0.0-2.0); EOSINOPHIL # 0.4 TH/MM3 (0-0.4); EOSINOPHIL % 5.2 % (0.0-4.0); HEMATOCRIT 27.7 % (39.0-51.0); HEMO FLAGS DIFF FINAL; LYMPH % 13.7 % (9.0-44.0); LYMPHOCYTE # 1.1 TH/MM3 (1.0-4.8); MEAN CELL VOLUME 87.5 FL (80.0-100.0); MEAN CORPUSCULAR HEMOGLOBIN 29.3 PG (27.0-34.0); MEAN CORPUSCULAR HGB CONC 33.5 % (32.0-36.0); MONO % 7.4 % (0.0-8.0); NEUT % 73.5 % (16.0-70.0); PLATELET COUNT 176 TH/MM3 (150-450); RED BLOOD COUNT 3.17 MIL/MM3 (4.50-5.90); RED CELL DISTRIBUTION WIDTH 15.5 % (11.6-17.2); WHITE BLOOD COUNT 8.3 TH/MM3 (4.0-11.0)
[2016-05-28 05:31] LABS: BICARBONATE 27.1 MEQ/L (21.0-32.0); POTASSIUM 3.7 MEQ/L (3.5-5.1)
[2016-05-28] MEDS: INSULIN ASPART SUPPLEMENTAL SCALE SQ SCH ×4 (05:32→19:57)
--- NOTE | 2016-05-28 08:52 | HHI.FF ---
Face to Face Verification Diagnosis: (1) Colostomy status (2) Status post partial resection of colon Physical Therapy Order: Evaluate and Treat, Improve ambulation, Strength and gait training Occupational Therapy Order: Evaluate and Treat, Improve ADL, Gross motor coordination, Fine motor coordination Speech Therapy Order: To Improve: Cognitive skills Home Health Nursing Order: Medical education Diabetic education Medication education-adverse effect Wound care and dressing changes Instructions: LLQ wound is clean and needs daily or BID if possible irrigation with peroxide and saline 50/50; then wet to dry dressings. Home Health Aide Order: To Assist In: Bathing and personal care Managed Care Coordinator Order: To Evaluate: Living conditions/environment, Support services Order: To Provide: Long range planning I have seen patient Sim Medeiros on 05/28/16. My clinical findings support the need for the requested home health care services because: Ltd mobility - disease progression Deconditioned w/ increased weakness Med compliance is questionable Limited ability to care for self Need for psychosocial assistance Impaired cognition/judgement High risk of falls I certify that my clinical findings support that this patient is homebound because: Post-op weakness Impaired cognitive ability/safety Unsteady gait/balance Unsafe to leave home unassisted Need for psychosocial assistance [id number] bed/chair Vazquez Dominguez MD May 28, 2016 08:52
[2016-05-28] MEDS: POTASSIUM CHLORIDE INJ 20 MEQ in LACTATED RINGER'S 1000 ML INJ 1,000 ML IV SCH (09:00)
[2016-05-28] MEDS: PANTOPRAZOLE SODIUM 40 MG VIAL IVP SCH (09:00)
--- NOTE | 2016-05-28 09:05 | HHI.PR ---
Subjective Remarks Awake,alert. Unable to really give me history of OOB or wound care or even appetite. Objective Vital Signs Date Time Temp Pulse Resp B/P Pulse Ox O2 Delivery O2 Flow Rate FiO2 05/28/16 05:10 20 05/28/16 04:55 20 05/28/16 00:00 98.8 76 19 148/71 96 05/27/16 22:30 96 Nasal Cannula 3.00 05/27/16 21:11 18 05/27/16 20:00 95.8 103 19 154/76 96 05/27/16 20:00 Nasal Cannula 3.00 21 05/27/16 14:47 14 05/27/16 14:40 14 05/27/16 14:00 14 05/27/16 12:00 96.9 78 16 156/74 98 I/O 05/27/16 05/27/16 05/27/16 05/28/16 05/28/16 05/28/16 07:00 15:00 23:00 07:00 15:00 23:00 Intake Total 950 ml 2120 ml 595 ml 510 ml Output Total 1200 ml 90 ml 1730 ml 780 ml Balance -250 ml 2030 ml -1135 ml -270 ml Intake Oral 240 ml 240 ml 120 ml IV Total 710 ml 2120 ml 355 ml 390 ml Output Urine Total 1100 ml 1700 ml 750 ml Stool Total 0 ml 0 ml Drainage Total 100 ml 90 ml 30 ml 30 ml # Bowel Movements 0 Result Diagram: 05/28/16 0433 05/28/16 0443 Objective Remarks VS-S Abd: obese,soft,midline wound clean. Old stoma site clean. Dressings new. Labs: OK. PT/INR therapeutic I&Os: OK Assessment and Plan Assessment and Plan Stable POD#4 Plan: Will start 1800 hannah diet. On Lovenox.PT/INR therapeutic. Will D/C Lovenox. Must be OOB. Ready for D/C with [facility]. Face to Face done. F/U Dr Ritter Dominguez,Vazquez Velazco MD May 28, 2016 09:05
--- NOTE | 2016-05-28 09:18 | HHI.FPPN ---
Subjective Remarks D/W DR CORADO BLOOD IN OSTOMY INCREASED WEAKNESS, FULL CARE 3 PERSON ASSIST PT C/O GENERAL PAIN D/W RN'S Objective Vitals Vital Signs Date Time Temp Pulse Resp B/P Pulse Ox O2 Delivery O2 Flow Rate FiO2 05/28/16 05:10 20 05/28/16 04:55 20 05/28/16 00:00 98.8 76 19 148/71 96 05/27/16 22:30 96 Nasal Cannula 3.00 05/27/16 21:11 18 05/27/16 20:00 95.8 103 19 154/76 96 05/27/16 20:00 Nasal Cannula 3.00 21 05/27/16 14:47 14 05/27/16 14:40 14 05/27/16 14:00 14 05/27/16 12:00 96.9 78 16 156/74 98 I/O 05/27/16 05/27/16 05/27/16 05/28/16 05/28/16 05/28/16 07:00 15:00 23:00 07:00 15:00 23:00 Intake Total 950 ml 2120 ml 595 ml 510 ml Output Total 1200 ml 90 ml 1730 ml 780 ml Balance -250 ml 2030 ml -1135 ml -270 ml Intake Oral 240 ml 240 ml 120 ml IV Total 710 ml 2120 ml 355 ml 390 ml Output Urine Total 1100 ml 1700 ml 750 ml Stool Total 0 ml 0 ml Drainage Total 100 ml 90 ml 30 ml 30 ml # Bowel Movements 0 Result Diagram: 05/28/16 0433 05/28/16 0443 Objective Remarks GENERAL: SKIN: Warm and dry. HEAD: Atraumatic. Normocephalic. EYES: Pupils equal and round. No scleral icterus. No injection or drainage. ENT: No nasal bleeding or discharge. Mucous membranes pink and moist. NECK: Trachea midline. No JVD. CARDIOVASCULAR: Regular rate and rhythm. RESPIRATORY: No accessory muscle use. HARSHC COUGH, RONCHI TO APICES GASTROINTESTINAL: Abdomen soft, non-tender, nondistended. Hepatic and splenic margins not palpable. R VIJAY W SEROSANG, LARGE MIDLINE INCISION CDI, OLD OSTOMY SITE PACKED, NEW LUQ OSTOMY W NORMAL STOOL AND STOMA MUSCULOSKELETAL: Extremities without clubbing, cyanosis, 1 PLUS EDEMA LLE AND FACE. R AKA NEUROLOGICAL: Awake and alert. No obvious cranial nerve deficits. Motor grossly within normal limits. Aphasic, 1/5 L YAO, 4/5 RUE. AKA. PSYCHIATRIC: Appropriate mood and affect; insight and judgment normal. Medications and IVs Current Medications Medications (Trade) Dose Ordered Sig/Celestine Route Start Time Stop Time Status Last Admin (Ativan Inj) 0.5 mg Q6H PRN IV PUSH 05/24/16 18:30 Clonidine 0.1 mg 0.1 mg Q6H PRN PO 05/24/16 18:30 05/26/16 10:32 (Coumadin Consult Pharmacy) 0 ml @ 0 mls/hr UNSCH OTHER 05/24/16 18:30 (Apresoline Inj) 20 mg Q4H PRN IV PUSH 05/24/16 18:30 05/26/16 15:43 (D50w (Vial) Inj) 25 ml UNSCH PRN IV PUSH 05/24/16 18:45 (Glucagon Inj) 1 mg UNSCH PRN OTHER 05/24/16 18:45 (Lipitor) 10 mg HS PO 05/24/16 21:00 05/27/16 21:11 (Toprol Xl) 100 mg DAILY PO 05/25/16 09:00 05/27/16 08:48 Patient Own Medication PT OWN MED: SIMBR... BID EACH EYE 05/24/16 21:00 Hold (Xalatan 0.005% Opth Soln) 1 drop HS EACH EYE 05/24/16 21:00 05/27/16 21:00 (NS Flush) 2 ml UNSCH PRN IVF 05/24/16 22:15 (NS Flush) 2 ml BID IVF 05/25/16 09:00 05/27/16 21:10 ([place] 5-325 Mg) 1 tab Q4H PRN PO 05/24/16 22:15 ([place] 5-325 Mg) 2 tab Q4H PRN PO 05/24/16 22:15 (Tylenol) 650 mg Q4H PRN PO 05/24/16 22:15 (Protonix Inj) 40 mg DAILY IVP 05/25/16 09:00 05/24/16 22:09 (Protonix) 40 mg DAILY PO 05/25/16 09:00 05/27/16 08:47 (Reglan Inj) 10 mg Q12HR IVS 05/25/16 09:00 05/27/16 21:10 (Zofran Inj) 4 mg Q6H PRN IV 05/24/16 22:15 (Vasotec Inj) 1.25 mg Q4H PRN IV 05/24/16 22:15 05/27/16 01:20 (Vasotec Inj) 2.5 mg Q6H PRN IV 05/24/16 22:15 05/27/16 06:18 Benzocaine/ Menthol 1 lozenge 1 lozenge UNSCH PRN SUCK-ON 05/24/16 22:15 Potassium Chloride 100 ml @ 50 mls/hr UNSCH PRN IV 05/24/16 22:15 (KCl 40 Meq Premix Inj) 100 ml @ 25 mls/hr UNSCH PRN IV 05/24/16 22:15 (Narcan Inj) 0.4 mg UNSCH PRN IV 05/24/16 22:15 Warfarin Sodium 5 mg 5 mg DAILY@1600 PO 05/27/16 16:00 05/27/16 14:08 (KCl Inj/Lr 1000 ml Inj) 1,010 ml @ 5 mls/hr Q24H IV 05/27/16 09:00 05/27/16 12:05 Miscellaneous Information SPECIFIC LAB TO BE DRAWN:VANCO TROUGH DATE TO... ONCE ONCE XX 05/29/16 10:45 05/29/16 10:46 (Lasix Inj) 40 mg BID@09,18 IV PUSH 05/27/16 18:00 05/27/16 16:28 A/P Assessment and Plan PERFORATED BOWEL S/P COLONOSCOPY FOR GIB AND BLOOD LOSS ANEMIA MAY 23. OPEN REPAIR MAY 24 WITH NEW OSTOMY PLACEMENT. SEVERE SEPSIS FLUID OVERLOAD VS HCAP LACTIC ACIDOSIS KATHRINE. RENAL US SHOWED MRD. DM HTN PAD R BKA CVA. Mitral valve replacement, on coumadin therapy. Coronary artery disease with a history of CABG PLAN: RECONSULT ID FOR ABX RECS AND DC PLANS BACK TO [facility] RESTARTED COUMADIN OFF IVF STARTED LASIX BID IV ABX INSULIN BLOOD CULTURES COLORECTAL CONSULT ID CONSULT HOLD PLAVIX HOLD CILOSTAZOL TOPROL XL STATIN PT OT [facility] LABS SEE MY ORDERS PLEASE. Problem List: (1) Perforated bowel Status: Acute (2) KATHRINE (acute kidney injury) Status: Acute Plan: Any not admission 2.63. Baseline appears to be 1.5. (3) Anemia Status: Acute Plan: Hemoglobin on admission 10.3. This appears to be the patient's baseline. (4) FEN Status: Acute Victor Manuel Jones MD May 28, 2016 09:18
[2016-05-28] MEDS: METOCLOPRAMIDE HCL 10 MG/2 ML VIAL IVS SCH ×2 (10:12→19:57)
[2016-05-28] MEDS: METOPROLOL SUCCINATE 50 MG EXTENDED RELEASE TAB PO SCH (10:12)
[2016-05-28] MEDS: FUROSEMIDE 40 MG/4 ML VIAL IV PUSH SCH ×2 (10:12→17:02)
[2016-05-28] MEDS: PANTOPRAZOLE SOD 40 MG DELAYED RELEASE TAB PO SCH (10:12)
[2016-05-28] MEDS: SODIUM CHLORIDE 0.9% FLUSH 5 ML FLUSH IVF SCH ×2 (10:13→19:57)
--- NOTE | 2016-05-28 13:02 | HHI.IDPN ---
Note Infectious Disease Note Patient is up in chair. Alert and responsive. Ache all over. No distress. Afebrile. This is a 60-year-old white male who was admitted to the hospital following colonoscopy. The patient developed abdominal pain and he was eventually found to have bowel perforation. He underwent bowel resection. PAST MEDICAL HISTORY 1. Diabetes mellitus. 2. Hypertension. 3. Coronary artery bypass graft surgery. 4. CVA x2. 5. 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 ALLERGIES NO KNOWN DRUG ALLERGIES. MEDICATIONS Current Medications Medications (Trade) Dose Ordered Sig/Celestine Route PRN Reason Start Time Stop Time Status Last Admin Dose Admin Lorazepam (Ativan Inj) 0.5 mg Q6H PRN IV PUSH ANXIETY 05/24/16 18:30 Clonidine 0.1 mg 0.1 mg Q6H PRN PO SBP>160, DBP>90 05/24/16 18:30 05/26/16 10:32 Pharmacy Profile Note (Coumadin Consult Pharmacy) 0 ml @ 0 mls/hr UNSCH OTHER 05/24/16 18:30 Hydralazine HCl (Apresoline Inj) 20 mg Q4H PRN IV PUSH SYS BP GREATER THAN 180 MMHG 05/24/16 18:30 05/26/16 15:43 Dextrose (D50w (Vial) Inj) 25 ml UNSCH PRN IV PUSH HYPOGLYCEMIA-SEE COMMENTS 05/24/16 18:45 Glucagon (Glucagon Inj) 1 mg UNSCH PRN OTHER HYPOGLYCEMIA-SEE COMMENTS 05/24/16 18:45 Atorvastatin Calcium (Lipitor) 10 mg HS PO 05/24/16 21:00 05/27/16 21:11 Metoprolol Succinate (Toprol Xl) 100 mg DAILY PO 05/25/16 09:00 05/28/16 10:12 Patient Own Medication PT OWN MED: SIMBR... BID EACH EYE 05/24/16 21:00 Hold Latanoprost (Xalatan 0.005% Opth Soln) 1 drop HS EACH EYE 05/24/16 21:00 05/27/16 21:00 IV Flush (NS Flush) 2 ml UNSCH PRN IVF FLUSH AFTER USING IV ACCESS 05/24/16 22:15 IV Flush (NS Flush) 2 ml BID IVF 05/25/16 09:00 05/28/16 10:13 Acetaminophen/ Hydrocodone Bitart ([place] 5-325 Mg) 1 tab Q4H PRN PO PAIN SCALE 1 TO 4 05/24/16 22:15 Acetaminophen/ Hydrocodone Bitart ([place] 5-325 Mg) 2 tab Q4H PRN PO PAIN SCALE 5 TO 10 05/24/16 22:15 Acetaminophen (Tylenol) 650 mg Q4H PRN PO Temperature > 101F 05/24/16 22:15 Pantoprazole Sodium (Protonix Inj) 40 mg DAILY IVP 05/25/16 09:00 05/24/16 22:09 Pantoprazole Sodium (Protonix) 40 mg DAILY PO 05/25/16 09:00 05/28/16 10:12 Metoclopramide HCl (Reglan Inj) 10 mg Q12HR IVS 05/25/16 09:00 05/28/16 10:12 Ondansetron HCl (Zofran Inj) 4 mg Q6H PRN IV NAUSEA 05/24/16 22:15 Enalaprilat (Vasotec Inj) 1.25 mg Q4H PRN IV SYS BP GREATER THAN 160 MMHG 05/24/16 22:15 05/27/16 01:20 Enalaprilat (Vasotec Inj) 2.5 mg Q6H PRN IV SYS BP GREATER THAN 160 MMHG 05/24/16 22:15 05/27/16 06:18 Benzocaine/ Menthol 1 lozenge 1 lozenge UNSCH PRN SUCK-ON SORE THROAT 05/24/16 22:15 Potassium Chloride 100 ml @ 50 mls/hr UNSCH PRN IV POTASSIUM 3 TO 3.5 05/24/16 22:15 Potassium Chloride (KCl 40 Meq Premix Inj) 100 ml @ 25 mls/hr UNSCH PRN IV POTASSIUM LESS THAN 3 05/24/16 22:15 Naloxone HCl (Narcan Inj) 0.4 mg UNSCH PRN IV RESPIRATORY RATE LESS THAN 10 05/24/16 22:15 Warfarin Sodium 5 mg 5 mg DAILY@1600 PO 05/27/16 16:00 05/27/16 14:08 Potassium Chloride/Lactated Ringer's (KCl Inj/Lr 1000 ml Inj) 1,010 ml @ 5 mls/hr Q24H IV 05/27/16 09:00 05/27/16 12:05 Miscellaneous Information SPECIFIC LAB TO BE DRAWN:VANCO TROUGH DATE TO... ONCE ONCE XX 05/29/16 10:45 05/29/16 10:46 Furosemide (Lasix Inj) 40 mg BID@,18 IV PUSH 05/27/16 18:00 05/28/16 10:12 SOCIAL HISTORY No tobacco or alcohol. No illicit drugs. Reported marijuana use. FAMILY HISTORY Noncontributory. REVIEW OF SYSTEMS Significant for abdominal pain. Otherwise negative. OBJECTIVE: Vital Signs Date Time Temp Pulse Resp B/P Pulse Ox O2 Delivery O2 Flow Rate FiO2 05/28/16 12:00 98.4 86 18 139/72 95 05/28/16 11:19 97 Nasal Cannula 2.50 05/28/16 08:00 98.3 88 17 179/92 100 05/28/16 05:10 20 05/28/16 04:55 20 05/28/16 00:00 98.8 76 19 148/71 96 05/27/16 22:30 96 Nasal Cannula 3.00 05/27/16 21:11 18 05/27/16 20:00 95.8 103 19 154/76 96 05/27/16 20:00 Nasal Cannula 3.00 21 05/27/16 14:47 14 05/27/16 14:40 14 05/27/16 14:00 14 05/27/16 05/27/16 05/28/16 15:00 23:00 07:00 Intake Total 2120 ml 595 ml 510 ml Output Total 90 ml 1730 ml 780 ml Balance 2030 ml -1135 ml -270 ml Intake Oral 240 ml 120 ml IV Total 2120 ml 355 ml 390 ml Output Urine Total 1700 ml 750 ml Stool Total 0 ml Drainage Total 90 ml 30 ml 30 ml # Bowel Movements 0 Laboratory Tests Test 05/27/16 05/28/16 06:36 04:33 White Blood Count 7.1 TH/MM3 8.3 TH/MM3 Red Blood Count 3.18 MIL/MM3 3.17 MIL/MM3 Hemoglobin 9.1 GM/DL 9.3 GM/DL Hematocrit 27.9 % 27.7 % Mean Corpuscular Volume 87.9 FL 87.5 FL Mean Corpuscular Hemoglobin 28.5 PG 29.3 PG Mean Corpuscular Hemoglobin 32.4 % 33.5 % Concent Red Cell Distribution Width 15.5 % 15.5 % Platelet Count 160 TH/MM3 176 TH/MM3 Mean Platelet Volume 9.0 FL 8.2 FL Neutrophils (%) (Auto) 82.5 % 73.5 % Lymphocytes (%) (Auto) 9.8 % 13.7 % Monocytes (%) (Auto) 5.6 % 7.4 % Eosinophils (%) (Auto) 1.7 % 5.2 % Basophils (%) (Auto) 0.4 % 0.2 % Neutrophils # (Auto) 5.9 TH/MM3 6.1 TH/MM3 Lymphocytes # (Auto) 0.7 TH/MM3 1.1 TH/MM3 Monocytes # (Auto) 0.4 TH/MM3 0.6 TH/MM3 Eosinophils # (Auto) 0.1 TH/MM3 0.4 TH/MM3 Basophils # (Auto) 0.0 TH/MM3 0.0 TH/MM3 CBC Comment DIFF FINAL DIFF FINAL Differential Comment Laboratory Tests Test 05/27/16 05/28/16 06:36 04:43 Sodium Level 140 MEQ/L 139 MEQ/L Potassium Level 3.5 MEQ/L 3.7 MEQ/L Chloride Level 107 MEQ/L 104 MEQ/L Carbon Dioxide Level 22.6 MEQ/L 27.1 MEQ/L Anion Gap 10 MEQ/L 8 MEQ/L Blood Urea Nitrogen 13 MG/DL 16 MG/DL Creatinine 1.08 MG/DL 1.24 MG/DL Estimat Glomerular Filtration 69 ML/MIN 59 ML/MIN Rate Random Glucose 141 MG/DL 125 MG/DL Calcium Level 8.3 MG/DL 8.3 MG/DL PHYSICAL EXAMINATION GENERAL: This is a moderately obese male who is in no acute distress. He is somnolent. HEENT: Head is atraumatic. Extraocular movements grossly intact. Pupils reactive to light. No icterus. Oropharynx - dry mucosa. NECK: Supple. No adenopathy. No swelling. LUNGS: Rhonchi at both bases. HEART: Normal S1 and S2 without murmurs. ABDOMEN: Soft. Surgical dressing in place. Colostomy looks okay. [place] mucosa. EXTREMITIES: No clubbing or cyanosis or edema. NEUROLOGIC: Nonfocal. SKIN: No diffuse rash. IMPRESSION 1. Sepsis secondary to perforated bowel. Resolved. 2. Urinary tract infection due to group D enterococcus. 3. Chronic renal insufficiency. 4. Patient status post bowel resection. Stable. RECOMMENDATIONS Can monitor without antibiotics from ID standpoint. Repeat urine culture if he has any fever. Julio Cesar Hess MD May 28, 2016 13:02
[2016-05-28] MEDS: WARFARIN SOD 5 MG TAB PO SCH (17:02)
[2016-05-28] MEDS: ATORVASTATIN 10 MG TAB PO SCH (19:57)
[2016-05-28] MEDS: LATANOPROST 0.005% OPHT SOLN 2.5 ML BTL EACH EYE SCH (19:57)
[2016-05-29] VITALS: BP 174/92; PULSE 94; RESP 18; TEMP 99.5; O2SAT 96
[2016-05-29 04:24] LABS: INTERNATIONAL NORMALIZED RATIO 3.2 RATIO; PROTHROMBIN TIME - PATIENT 37.3 SEC (9.8-11.6)
[2016-05-29] MEDS: INSULIN ASPART SUPPLEMENTAL SCALE SQ SCH ×3 (05:24→17:14)
[2016-05-29 08:00] VITALS: BP_SYST 180; BP_SYST 181; BP_DIAS 86; BP_DIAS 90; PULSE 91; RESP 18; TEMP 97.5; O2SAT 100
[2016-05-29] MEDS: PANTOPRAZOLE SODIUM 40 MG VIAL IVP SCH (08:48)
[2016-05-29] MEDS: FUROSEMIDE 40 MG/4 ML VIAL IV PUSH SCH ×2 (08:52→17:13)
[2016-05-29] MEDS: SODIUM CHLORIDE 0.9% FLUSH 5 ML FLUSH IVF SCH (08:52)
[2016-05-29] MEDS: PANTOPRAZOLE SOD 40 MG DELAYED RELEASE TAB PO SCH (08:52)
[2016-05-29] MEDS: METOCLOPRAMIDE HCL 10 MG/2 ML VIAL IVS SCH (08:52)
[2016-05-29] MEDS: METOPROLOL SUCCINATE 50 MG EXTENDED RELEASE TAB PO SCH (08:52)
[2016-05-29] MEDS: POTASSIUM CHLORIDE INJ 20 MEQ in LACTATED RINGER'S 1000 ML INJ 1,000 ML IV SCH (08:53)
[2016-05-29] MEDS ORDERED: NORC5TAB PO (09:23)
--- NOTE | 2016-05-29 09:24 | HHI.DCPOC ---
Discharge Care Plan Diagnosis: (1) KATHRINE (acute kidney injury) (2) Perforated bowel (3) FEN (4) Abdominal pain (5) GI bleed (6) SIRS (systemic inflammatory response syndrome) Goals to Promote Your Health * To prevent worsening of your condition and complications * To maintain your health at the optimal level Directions to Meet Your Goals Take your medications as prescribed Follow your dietary instruction Follow activity as directed Keep your appointments as scheduled Take your immunizations and boosters as scheduled If your symptoms worsen call your PCP, if no PCP go to Urgent Care Center or Emergency Room Smoking is Dangerous to Your Health. Avoid second hand smoke Call the 24-hour hour crisis hotline for domestic abuse at Victor Manuel Jones MD May 29, 2016 09:24
--- NOTE | 2016-05-29 09:25 | HHI.DS ---
Discharge Summary Admission Date May 24, 2016 at 16:47 Discharge Date: May 29, 2016 Admitting Diagnosis Perforated Bowel (1) Leukocytosis (2) Anemia (3) KATHRINE (acute kidney injury) (4) Perforated bowel (5) FEN (6) Abdominal pain (7) GI bleed (8) SIRS (systemic inflammatory response syndrome) (9) Colostomy status (10) Status post partial resection of colon Brief History 60 Y CM. RECET ADMIT WITH FOSTER DC TO [facility]. PT WENT HOME PREMATURELY PER HIS REQUEST THE NIGHT BEFORE COLONOSCOPY. HAD COLONOSCOPY YESTERDAY, SPIKED FEVERS AND CAME TO THE ER WITH ABDOMINAL PAIN AND VOMITING. FOUND TO HAVE PERFORATED BOWEL OUTLINED BELOW. PT SEEN IN THE ER. C/O ABDOMINAL PAIN AT THE TIME OTHERWISE APPEARS TO BE AT HIS BASELINE ALTHOUGH CHRONICALLY ILL APPEARING. I WAS CALLED FOR ADMISSION BY THE ER PA AND PT APPARENTLY IS TO HAVE EXPLORATORY SURGERY TONIGHT POSSIBLY. CBC/BMP: 05/28/16 0433 05/28/16 0443 Significant Findings Laboratory Tests Test 05/26/16 05/27/16 05/28/16 05/28/16 11:04 06:36 04:33 04:43 Red Blood Count 3.14 MIL/MM3 3.18 MIL/MM3 3.17 MIL/MM3 (4.50-5.90) (4.50-5.90) (4.50-5.90) Hemoglobin 9.0 GM/DL 9.1 GM/DL 9.3 GM/DL (13.0-17.0) (13.0-17.0) (13.0-17.0) Hematocrit 27.8 % 27.9 % 27.7 % (39.0-51.0) (39.0-51.0) (39.0-51.0) Neutrophils (%) (Auto) 84.9 % 82.5 % 73.5 % (16.0-70.0) (16.0-70.0) (16.0-70.0) Lymphocytes (%) (Auto) 8.5 % (9.0-44.0) Lymphocytes # (Auto) 0.7 TH/MM3 0.7 TH/MM3 (1.0-4.8) (1.0-4.8) Prothrombin Time 21.4 SEC 19.1 SEC 24.1 SEC (9.8-11.6) (9.8-11.6) (9.8-11.6) Chloride Level 112 MEQ/L (98-107) Creatinine 1.36 MG/DL (0.60-1.30) Estimat Glomerular Filtration 53 ML/MIN (>89) 69 ML/MIN (>89) 59 ML/MIN (>89) Rate Random Glucose 136 MG/DL 141 MG/DL 125 MG/DL (74-106) (74-106) (74-106) Calcium Level 8.3 MG/DL 8.3 MG/DL (8.5-10.1) (8.5-10.1) Eosinophils (%) (Auto) 5.2 % (0.0-4.0) Test 05/29/16 03:47 Prothrombin Time 37.3 SEC (9.8-11.6) PE at Discharge GENERAL: SKIN: Warm and dry. HEAD: Atraumatic. Normocephalic. EYES: Pupils equal and round. No scleral icterus. No injection or drainage. ENT: No nasal bleeding or discharge. Mucous membranes pink and moist. NECK: Trachea midline. No JVD. CARDIOVASCULAR: Regular rate and rhythm. RESPIRATORY: No accessory muscle use. Clear to auscultation. Breath sounds equal bilaterally. GASTROINTESTINAL: Abdomen soft, non-tender, nondistended. Hepatic and splenic margins not palpable. MUSCULOSKELETAL: Extremities without clubbing, cyanosis, or edema. No obvious deformities. NEUROLOGICAL: Awake and alert. No obvious cranial nerve deficits. Motor grossly within normal limits. 3 out of 5 muscle strength in the arms and legs. Normal speech. PSYCHIATRIC: Appropriate mood and affect; insight and judgment normal. Hospital Course 60 Y CM, ADMIT WITH - PERFORATED BOWEL S/P COLONOSCOPY FOR GIB AND BLOOD LOSS ANEMIA MAY 23. OPEN REPAIR MAY 24 WITH NEW OSTOMY PLACEMENT. SEVERE SEPSIS FLUID OVERLOAD VS HCAP LACTIC ACIDOSIS KATHRINE. RENAL US SHOWED MRD. DM HTN PAD R BKA CVA. Mitral valve replacement, on coumadin therapy. Coronary artery disease with a history of CABG HOSPITAL COURSE AND PLAN WAS - RECONSULT ID FOR ABX RECS AND DC PLANS BACK TO [facility] RESTARTED COUMADIN OFF IVF STARTED LASIX BID IV ABX INSULIN BLOOD CULTURES COLORECTAL CONSULT ID CONSULT HOLD PLAVIX HOLD CILOSTAZOL TOPROL XL STATIN PT OT ST HAD OSTOMY BLEED YESTERDAY AND NEEDED ID FOLLOWUP, NO FURTHER BLEED AND ID HAS SEEN THE PT NOW. SEE MY ORDERS PLEASE. Discharge Disposition: Discharge to SNF Discharge Instructions DIET: Follow Instructions for: Heart Healthy Diet Activities you can perform: Regular-No Restrictions Follow up Referrals: Colorectal Surgery - [address] Fuller New Medications: Hydrocodone-Acetaminophen ([place]) 5-325 mg Tab 1 TAB PO Q4H PRN PAIN #93 Ref 0 TAB Continued Medications: Atorvastatin (Atorvastatin) 10 Mg Tab 10 MG PO HS Cholesterol Management #30 Ref 0 TAB Brinzolamide-Brimonidine Opth Drops (Simbrinza Opth Drops) 1-0.2% Susp 1 DROP EACH EYE BID Intraocular Pressure #1 Ref 0 BOTTLE Cilostazol (Cilostazol) 50 Mg Tab 50 MG PO BID INTERMITTENT CLAUDICATION Ref 0 TAB Insulin Glargine Inj (Lantus Inj) 1,000 Unit/10 Ml Vial 35 UNITS SQ DAILY Blood Sugar Management Ref 0 VIAL Insulin Lispro (Human) Inj (Humalog Inj) 1,000 Unit/10 Ml Vial 2-10 UNITS SQ ACHS Max dose at bedtime:( )units; sugars < 70,(0)units; sugars 150-199,(2)units; sugars 200-249,(3)units; sugars 250-299,(5)units; sugars 300- 349,(7)units; sugars 350 or greater,(10)units. Blood Sugar Management #1 Ref 0 VIAL Metoprolol Succinate ER 24 HR (Toprol XL) 100 Mg Tab 100 MG PO DAILY htn #30 Ref 11 TAB Omeprazole (Prilosec) 20 Mg Cap 20 MG PO DAILY #30 Ref 0 CAP Travoprost Opth Drops (Travatan Z Opth Drops) 0.004 % Soln 1 DROP EACH EYE HS Glaucoma #1 Ref 0 BOTTLE Discontinued Medications: Clopidogrel (Plavix) 75 Mg Tab 75 MG PO DAILY Blood Clot Prevention #30 Ref 0 TAB Docusate Sodium (Colace) 100 Mg Cap 100 MG PO DAILY PRN CONSTIPATION #60 Ref 0 CAP Hydrocodone-Acetaminophen ([place]) 7.5-325 mg Tab 1 TAB PO QID Pain Management #90 Ref 0 TAB NS Lorazepam (Ativan) 1 Mg Tab 1 MG PO HS Anxiety and/or Insomnia #30 Ref 5 TAB NS Pregabalin (Lyrica) 50 Mg Cap 50 MG PO HS neurop #30 Ref 5 CAP NS Warfarin (Warfarin) 5 Mg Tab 5 MG PO DAILY@1600 Blood Clot Prevention #30 Ref 0 TAB Victor Manuel Jones MD May 29, 2016 09:25
[2016-05-29] MEDS ORDERED: PHARMACY ORDERED LAB XX ONE (10:45)
[2016-05-29 12:00] VITALS: BP 134/85; PULSE 88; RESP 18; TEMP 98.8; O2SAT 100
[2016-05-29] MEDS ORDERED: ALUMINUM/MAGNESIUM/SIMETH 30 ML CUP PO ONE (17:15)
--- NOTE | 2016-05-30 14:27 | MP ---
cc: OPHELIA FOSTER M.D. DATE OF SURGERY: 05/24/2016 PREOPERATIVE DIAGNOSIS Pneumoperitoneum. PROCEDURE Exploratory laparotomy with proctosigmoidectomy, Toshia pouch and resection of colostomy, formation of new colostomy. POSTOPERATIVE DIAGNOSIS Pneumoperitoneum from perforated rectosigmoid distal to the colostomy. SURGEON Dr. Foster. BULK TR[employer] DRIVER Dr. Nathaniel Mon. PROCEDURE The patient was placed in the supine position. After adequate general anesthesia one leg was placed in the [place] stirrups and supported appropriately. The abdomen and perineum were then prepped with Betadine solution and draped in usual sterile fashion. With Dr. Mon's assistance the abdomen was opened through a midline incision. Upon entering the abdomen there was purulent ascites with some evidence of fecal material. Exploration revealed the loop colostomy and parastomal hernia was examined and the hernia reduced. There appeared to be a perforation and serosal splinting just distal to the loop colostomy with fecal material expressed from the colonic lumen. The abdomen was irrigated copiously. Initially the colostomy was taken down from its abdominal wall by incising the mucocutaneous junction and returning the loop back into the abdomen. It was felt necessary then to resect the perforation and colostomy and reform a new colostomy more proximally. Therefore, the sigmoid colon was mobilized medially by dividing along the white line of [place]. The ureter was identified and carefully preserved. Dissection then proceeded down opening up the presacral space and picking a point in the proximal rectum for the distal transection margin. The mesorectum was taken between Maya's and tied with Vicryl ligatures. The bowel was then divided with a TA stapling device. The bowel was then mobilized off the left pelvic sidewall taking the pedicle for the superior hemorrhoidal vessels between Maya's obtaining hemostasis with Vicryl ties. At a point proximal to the loop colostomy the mesorectum mesentery was taken and the bowel divided again with the FRANCOIS stapling device. The specimen was removed. The abdomen was then irrigated copiously with normal saline. Adequate hemostasis was achieved. A circular stab wound was created in the left upper quadrant and the end of the left colon brought up through the stab wound without tension and with good blood supply. The previous colostomy site was then closed in two layers anatomically with running #1 PDS sutures to reapproximate the respective fascial layers. Relaxing incision was made lateral to the closure to release some tension on the fascial closure. The abdomen was again irrigated. A Alan-Emery drain was placed down into the pelvis and brought up through a stab wound in the right lower quadrant, secured to the skin with a Nylon suture. Midline incision was then closed reapproximating the midline fascia with a running #1 PDS suture. The subcutaneous tissue was irrigated copiously and the skin closed loosely with a row of surgical karen. The colostomy site was irrigated and packed open with Kerlix gauze. Finally the staple line was removed from the end of the colon and the colostomy matured in the usual [place] fashion by placing a row of interrupted chromic catgut sutures around the circumference. At completion the stoma did appear to be viable and was patent through the fascial level. The new colostomy appliance fitted over the stoma. The Telfa and gauze dressing fitted over the other incisions. The patient tolerated the procedure quite well and was brought to the recovery room in stable condition. The sponge and needle counts were correct at the end of the procedure. MD JUANIS Liang/PAM /9:05 AM /2:10 PM
--- NOTE | 2016-06-04 11:41 | PQ ---
Physician Query Response Document PATIENT: AZRA MOSCOSO : 1955 ADMIT DATE: 05/24/2016 4:47 PM DISCH DATE: 05/29/2016 5:29 PM RESPONDING PROVIDER #: Jonn QUERY TEXT: Conflicting Documentation Clarification Documentation of multiple diagnoses for the same clinical presentation appears in the record. Please clarify the diagnosis/diagnoses - does patient have hemiparesis and aphasia, and if so, is this due to the prior CVA? If you have any additional questions/comments and/or concerns, please do not hesitate to reach out to the CDI/Coding Hotline, ext. [phone]. The patient's Clinical Indicators include: Past Medical History from ED record documents: Musculoskeletal: Yes (LT SIDE WEAKNESS WITH FOOT DROP ON LT). Also documentation of CVA in 2012. First H Second H FPPN Progress Note dated 05/26/16 documents: NEUROLOGICAL: Awake and alert. No obvious cranial nerve d eficits. Motor grossly within normal limits. Aphasic, 1/5 L YAO, 4/5 RUE. Discharge Summary under Physical - NEUROLOGICAL: Awake and alert. No obvious cranial nerve deficits. Motor grossly within normal limits. 3 out of 5 muscle strength in the arms and legs. Normal speech. Query created by: Yuliana Ren on 06/04/2016 11:05 AM RESPONSE TEXT: LEFT HEMIPARESIS AND APHASIA DUE TO CVA Electronically signed by: Victor Manuel Jones MD 06/04/2016 11:37 AM
== END 2016-05-29 17:29 | DRG 907 ==
LOC: NEDAMB 11:43 → NEDA 16:47 → N03A 05-25 00:54 → N07A 05-26 21:15
PROVIDERS: ADMIT Family Medicine; ATTEND Family Medicine
PROC: 0DBK8ZX Excision of Ascending Colon, Via Natural or Artificial Opening Endoscopic, Diagnostic (ICD-10-PCS; 2016-05-23)
PROC: 0DBL8ZX Excision of Transverse Colon, Via Natural or Artificial Opening Endoscopic, Diagnostic (ICD-10-PCS; 2016-05-23)
PROC: 0DBN0ZZ Excision of Sigmoid Colon, Open Approach (ICD-10-PCS; principal; 2016-05-27)
PROC: 0D1N0Z4 Bypass Sigmoid Colon to Cutaneous, Open Approach (ICD-10-PCS; 2016-05-27)
DX: K91.71 Accidental puncture and laceration of a digestive system organ or structure during a digestive system procedure (principal); R65.20 Severe sepsis without septic shock; N17.9 Acute kidney failure, unspecified; E87.2 Acidosis; K92.2 Gastrointestinal hemorrhage, unspecified; E10.22 Type 1 diabetes mellitus with diabetic chronic kidney disease; A41.9 Sepsis, unspecified organism; I69.354 Hemiplegia and hemiparesis following cerebral infarction affecting left non-dominant side; N39.0 Urinary tract infection, site not specified; E10.9 Type 1 diabetes mellitus without complications; B95.2 Enterococcus as the cause of diseases classified elsewhere; D64.9 Anemia, unspecified; Y83.8 Other surgical procedures as the cause of abnormal reaction of the patient, or of later complication, without mention of misadventure at the time of the procedure; Y92.89 Other specified places as the place of occurrence of the external cause; Z89.511 Acquired absence of right leg below knee; I69.320 Aphasia following cerebral infarction; Z79.01 Long term (current) use of anticoagulants; Z95.2 Presence of prosthetic heart valve; Z95.1 Presence of aortocoronary bypass graft; I25.10 Atherosclerotic heart disease of native coronary artery without angina pectoris; Z79.4 Long term (current) use of insulin; Z86.010 Personal history of colon polyps; Z93.3 Colostomy status; I12.9 Hypertensive chronic kidney disease with stage 1 through stage 4 chronic kidney disease, or unspecified chronic kidney disease; N18.9 Chronic kidney disease, unspecified; Z91.040 Latex allergy status; Z86.14 Personal history of Methicillin resistant Staphylococcus aureus infection; M19.90 Unspecified osteoarthritis, unspecified site; E78.00 Pure hypercholesterolemia, unspecified; F12.90 Cannabis use, unspecified, uncomplicated; R60.9 Edema, unspecified; D12.2 Benign neoplasm of ascending colon; D12.3 Benign neoplasm of transverse colon; Z79.82 Long term (current) use of aspirin
CPT/HCPCS: 51702; 71010; 74176; 76775; 76937; 80048; 80053; 80202; 81001; 82805; 82948; 83605; 83690; 85007; 85025; 85027; 85610; 85730; 86850; 86900; 86901; 86920; 86927; 87040; 87077; 87086; 87186; 88305; 88307; 88309; 93005; 94150; 96374; 96375; C9113; J0360; J0690; J1170; J1650; J1815; J1940; J2175; J2270; J2370; J2405; J2543; J2765; J3010; J3370; J3480; J7030; J7040; J7042; J7120; J7121; Q9963

== ENCOUNTER 2016-06-12 11:31 | Inpatient (IN) | payer MEDICARE, OTHER ==
[2016-06-12] VITALS (18 sets, daily range): BP systolic 122–154; BP diastolic 56–80; PULSE 95–109; RESP 15–24; TEMP 98.7–99.8; O2SAT 98–100
[~2016-06-12] VITALS: Ht 177.8 cm; Wt 81.1 kg
[~2016-06-12 11:31] MED LIST changes: -COLA100C3 PO; -HYDR-3288 PO; -LORA-474 PO; -LYRI50CA PO; +NORC5TAB PO; -PLAV75TA29 PO; -WARF-23 PO
[2016-06-12] MEDS ORDERED: SODIUM CHLORIDE 0.9% FLUSH 5 ML FLUSH IVF PRN (12:00)
--- NOTE | 2016-06-12 12:03 | PD ---
HPI Chief Complaint: Abnormal Results Time Seen by Provider: 11:51 Travel History International Travel<30 days: No Contact w/Intl Traveler<30days: No Traveled to known affect area: No History of Present Illness HPI 60-year-old male presents to the emergency department via EMS for evaluation of low hemoglobin, black tarry output from his colostomy, generalized weakness, abdominal pain. Patient had colonoscopy performed Dr. Bear and had polyp removal. He returned on May 29 and was diagnosed with a perforated bowel. Patient complains of generalized weakness, fatigue. He denies fevers. He complains of worsening abdominal pain. Patient is a poor historian. According to rehabilitation, he has had black tarry stools from his colostomy, they just changed his colostomy bag in his stool able to be obtained at this time. Patient has a past medical history type 1 diabetes, BKA, colostomy, SIRS, and GI bleed. PFSH Past Medical History Hx Anticoagulant Therapy: Yes Arthritis: Yes Asthma: No Autoimmune Disease: No Blood Disorders: No Anxiety: No Depression: No Heart Rhythm Problems: No Cancer: No Cardiac Catheterization: No Cardiovascular Problems: Yes (HTN) High Cholesterol: Yes Chemotherapy: No Chest Pain: No Congestive Heart Failure: No COPD: No Cerebrovascular Accident: Yes (2012) Diabetes: Yes Endocrine: Yes Gastrointestinal Disorders: Yes (colostomy bag. ) GERD: No Genitourinary: Yes Hiatal Hernia: No Hypertension: Yes Immune Disorder: No Kidney Stones: No Musculoskeletal: Yes (LT SIDE WEAKNESS WITH FOOT DROP ON LT) Neurologic: Yes Psychiatric: No Reproductive: No Respiratory: No Migraines: No Radiation Therapy: No Renal Failure: No Seizures: No Sickle Cell Disease: No Sleep Apnea: No Thyroid Disease: No Ulcer: No Past Surgical History Abdominal Surgery: Yes (COLOSTOMY) AICD: No Arteriovenous Shunt: No Cardiac Surgery: Yes (MITRAL VALVE REPLACED 05/2012) Coronary Artery Bypass Graft: Yes (06-10-2012) Ear Surgery: No Endocrine Surgery: No Eye Surgery: No Genitourinary Surgery: No Gynecologic Surgery: No Insulin Pump: No Joint Replacement: No Oral Surgery: No Pacemaker: No Thoracic Surgery: Yes Valve Replacement: Yes (MVR 06-10-2012) Other Surgery: Yes Social History Alcohol Use: No (OCC) Tobacco Use: No Substance Use: Yes (marijuana) Allergies-Medications (Allergen,Severity, Reaction): Coded Allergies: Latex (Verified Allergy, Severe, Rash, 06/12/16) *MDRO Multi-Drug Resistant Organism (Verified Adverse Reaction, Unknown, MRSA, ESBL, MDR Acinetobacter, 06/12/16) 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 Reported Meds & Prescriptions Reported Meds & Active Scripts Active [place] (Hydrocodone-Acetaminophen) 5-325 mg Tab 1 Tab PO Q4H PRN Toprol XL (Metoprolol Succinate) 100 Mg Tab 100 Mg PO DAILY Reported Santyl Topical (Collagenase) 250 Unit/Gm Oint 1 Applic TOPICAL 1 X DAILY & PRN SOIL Warfarin 3 Mg Tab 3 Mg PO DAILY@1600 Thera-M (Multiple Vitamins W/ Minerals) 1 Tab 1 Tab PO DAILY Ferrous Sulfate 325 Mg Tab 325 Mg PO BID Colace (Docusate Sodium) 100 Mg Cap 100 Mg PO TID Mapap (Acetaminophen) 325 Mg Tab 650 Mg PO Q4HR PRN Prilosec (Omeprazole) 20 Mg Cap 20 Mg PO DAILY Humalog Inj (Insulin Human Lispro) 1,000 Unit/10 Ml Vial 2-10 Units SQ ACHS Max dose at bedtime:( )units; sugars < 70,(0)units; sugars 150-199,(2)units; sugars 200-249,(3)units; sugars 250-299,(5)units; sugars 300-349,(7)units; sugars 350 -400,(10)units. Travatan Z Opth Drops (Travoprost) 0.004 % Soln 1 Drop EACH EYE HS Cilostazol 50 Mg Tab 50 Mg PO BID Simbrinza Opth Drops (Brinzolamide-Brimonidine Opth Drops) 1-0.2% Susp 1 Drop EACH EYE BID Atorvastatin (Atorvastatin Calcium) 10 Mg Tab 10 Mg PO HS Lantus Inj (Insulin Glargine) 1,000 Unit/10 Ml Vial 35 Units SQ HS Review of Systems Except as stated in HPI: all other systems reviewed are Neg Physical Exam Exam Limitations: Poor Historian Narrative GENERAL: Well-developed well-nourished male patient, temperature 99.5. SKIN: Warm and dry. Patient is pale. Patient has multiple packed wounds to the abdomen as well as a decubitus ulcer. HEAD: Normocephalic. Atraumatic. EYES: No scleral icterus. No injection or drainage. NECK: Supple, trachea midline. No JVD or lymphadenopathy. CARDIOVASCULAR: Regular rate and rhythm without murmurs, gallops, or rubs. RESPIRATORY: Breath sounds equal bilaterally. No accessory muscle use. Lungs sounds clear to auscultation. GASTROINTESTINAL: Abdomen soft and nondistended. Patient has colostomy to the left upper quadrant with tenderness to palpation over the left abdomen. MUSCULOSKELETAL: No cyanosis, or edema. Patient has right BKA. BACK: Nontender without obvious deformity. No CVA tenderness. Data Data Last Documented VS Vital Signs Date Time Temp Pulse Resp B/P Pulse Ox O2 Delivery O2 Flow Rate FiO2 06/12/16 11:45 100 Room Air 06/12/16 11:43 99.5 106 18 152/76 Orders Complete Blood Count With Diff (06/12/16 11:48) Comprehensive Metabolic Panel (06/12/16 11:48) Lipase (06/12/16 11:48) Prothrombin Time / Inr (Pt) (06/12/16 11:48) Act Partial Throm Time (Ptt) (06/12/16 11:48) Urinalysis - C+S If Indicated (06/12/16 11:48) Ct Abd/Pel W Iv Contrast(Rout) (06/12/16 11:48) Iv Access Insert/Monitor (06/12/16 11:48) Ecg Monitoring (06/12/16 11:48) Oximetry (06/12/16 11:48) Sodium Chloride 0.9% Flush (Ns Flush) (06/12/16 12:00) Electrocardiogram (06/12/16 11:48) Type And Screen (06/12/16 11:48) Blood Culture (06/12/16 11:48) Lactic Acid Sepsis Protocol (06/12/16 11:48) Iohexol 350 Inj (Omnipaque 350 Inj) (06/12/16 13:21) Admit Order (Ed Use Only) (06/12/16 14:06) Red Blood Cells (Rbc) (06/12/16 14:08) Blood Product Administration .UPON TRANSFUSION (06/12/16 14:08) Sodium Chlor 0.9% 250 Ml Inj (Ns 250 Ml (06/12/16 14:15) Furosemide Inj (Lasix Inj) (06/12/16 14:15) Labs Laboratory Tests Test 06/12/16 06/12/16 06/12/16 11:55 12:10 12:20 White Blood Count 12.1 TH/MM3 Red Blood Count 2.63 MIL/MM3 Hemoglobin 7.1 GM/DL Hematocrit 21.8 % Mean Corpuscular Volume 82.8 FL Mean Corpuscular Hemoglobin 27.0 PG Mean Corpuscular Hemoglobin 32.6 % Concent Red Cell Distribution Width 17.0 % Platelet Count 596 TH/MM3 Mean Platelet Volume 7.3 FL Neutrophils (%) (Auto) 84.5 % Lymphocytes (%) (Auto) 8.5 % Monocytes (%) (Auto) 5.7 % Eosinophils (%) (Auto) 1.0 % Basophils (%) (Auto) 0.3 % Neutrophils # (Auto) 10.2 TH/MM3 Lymphocytes # (Auto) 1.0 TH/MM3 Monocytes # (Auto) 0.7 TH/MM3 Eosinophils # (Auto) 0.1 TH/MM3 Basophils # (Auto) 0.0 TH/MM3 CBC Comment DIFF FINAL Differential Comment Prothrombin Time 25.4 SEC Prothromb Time International 2.2 RATIO Ratio Activated Partial 39.8 SEC Thromboplast Time Sodium Level 135 MEQ/L Potassium Level 3.7 MEQ/L Chloride Level 103 MEQ/L Carbon Dioxide Level 22.9 MEQ/L Anion Gap 9 MEQ/L Blood Urea Nitrogen 18 MG/DL Creatinine 1.16 MG/DL Estimat Glomerular Filtration 64 ML/MIN Rate Random Glucose 212 MG/DL Calcium Level 8.7 MG/DL Total Bilirubin 0.4 MG/DL Aspartate Amino Transf 41 U/L (AST/SGOT) Alanine Aminotransferase 36 U/L (ALT/SGPT) Alkaline Phosphatase 169 U/L Total Protein 7.7 GM/DL Albumin 2.1 GM/DL Lipase 1306 U/L Blood Type A POSITIVE Antibody Screen NEGATIVE Urine Color YELLOW Urine Turbidity CLEAR Urine pH 5.5 Urine Specific [place] 1.020 Urine Protein 30 mg/dL Urine Glucose (UA) 70 mg/dL Urine Ketones NEG mg/dL Urine Occult Blood NEG Urine Nitrite NEG Urine Bilirubin NEG Urine Urobilinogen LESS THAN 2.0 MG/DL Urine Leukocyte Esterase TRACE Urine RBC 17 /hpf Urine WBC 4 /hpf Urine Squamous Epithelial <1 /hpf Cells Urine Bacteria RARE /hpf Urine Yeast (Budding) FEW Microscopic Urinalysis Comment CULT NOT INDICATED Lactic Acid Level 1.0 mmol/L [facility] Medical Decision Making Medical Screen Exam Complete: Yes Emergency Medical Condition: Yes Medical Record Reviewed: Yes Interpretation(s) CT abdomen/pelvis - CONCLUSION: 1. The patient has had a colonic anastomosis in the mid pelvis. There is a circumferential area of fluid and soft-tissue density surrounding the area. It could be resolving hematoma or conceivably an abscess; measurements given above. I do not see any free intraperitoneal air. I believe the previous colostomy has been taken down, although there is a large defect in the anterior abdominal wall remaining. 2. Solid organs of the abdomen are unremarkable. Differential Diagnosis GI bleed versus anemia versus sepsis Narrative Course 60-year-old male presents to the emergency department sent by rehabilitation for any cardiac, black tarry stool from colostomy. Colostomy was just changed and I'm unable to collect stool at this time. EKG is ordered and pending. CBC , CMP, lipase, UA, blood cultures 2, lactic acid, PTT, PT/INR, type and screen screen are ordered and pending. CT of the abdomen/pelvis is ordered and pending. EKG shows sinus tachycardia, heart rate 105. CBC shows leukocytosis of 12.1, hemoglobin 7.1, hematocrit 21.8. CMP shows no acute abnormalities. Lipase is 1306. Lactic Acid is 1.0. PTT is 39.8, PT is 25.4, INR 2.2. UA shows trace leukocyte esterase. CT of the abdomen/pelvis shows 1. The patient has had a colonic anastomosis in the mid pelvis. There is a circumferential area of fluid and soft-tissue density surrounding the area. It could be resolving hematoma or conceivably an abscess; measurements given above. I do not see any free intraperitoneal air. I believe the previous colostomy has been taken down , although there is a large defect in the anterior abdominal wall remaining; 2. Solid organs of the abdomen are unremarkable. Dr. Dillard examined patient and was able to guiac stool and it was faint positive. Dr. Jones and Dr. Fuller are paged. Dr. Jones accepted admission and would like to units PRBCs given with 20 mg of Lasix after each unit. Suspected Dr. Fuller, who will review the CT scan. A consult will be placed. HemaPrompt Point of Care Internal Pos. & Neg. Controls: Passed Fecal Specimen Occult Blood: Positive Sepsis Criteria SIRS Criteria (2 or more): Heart rate over 90, WBC > 49100, < 4000 or > 10% bands Diagnosis Primary Impression: Abdominal pain Qualified Code: R10.12 - Left upper quadrant pain Additional Impressions: Leukocytosis Qualified Code: D72.829 - Leukocytosis, unspecified type Symptomatic anemia Admitting Information Admitting Physician Requests: Admit Alfreda Gaston Jun 12, 2016 12:03
[2016-06-12 12:28] LABS: AUTOMATED NEUTROPHIL # 10.2 TH/MM3 (1.8-7.7); BASOPHIL % 0.3 % (0.0-2.0); EOSINOPHIL # 0.1 TH/MM3 (0-0.4); HEMATOCRIT 21.8 % (39.0-51.0); HEMO FLAGS DIFF FINAL; LYMPH % 8.5 % (9.0-44.0); MEAN CELL VOLUME 82.8 FL (80.0-100.0); MEAN CORPUSCULAR HGB CONC 32.6 % (32.0-36.0); MONO % 5.7 % (0.0-8.0); NEUT % 84.5 % (16.0-70.0); PLATELET COUNT 596 TH/MM3 (150-450); RED BLOOD COUNT 2.63 MIL/MM3 (4.50-5.90); WHITE BLOOD COUNT 12.1 TH/MM3 (4.0-11.0)
[2016-06-12 12:33] LABS: BACTERIA, URINE RARE /hpf; BLOOD, URINE NEG (NEG); GLUCOSE,URINE 70 mg/dL (NEG); KETONE, URINE NEG (NEG); NITRITE,URINE NEG (NEG); PH, URINE 5.5 (5.0-8.5); SQUAMOUS EPITHELIAL CELL URINE <1 /hpf (0-5); URINE COLOR YELLOW (YELLW/STRAW)
[2016-06-12 12:35] LABS: COMMENT (UR) CULT NOT INDICATED; CULTURE IF INDICATED CULT NOT INDICATED
[2016-06-12] MEDS ORDERED: COLA100C3 PO (12:39)
[2016-06-12] MEDS ORDERED: MAPA325T PO (12:39)
[2016-06-12 12:41] LABS: APTT (PATIENT) 39.8 SEC (24.3-30.1); INTERNATIONAL NORMALIZED RATIO 2.2 RATIO; PROTHROMBIN TIME - PATIENT 25.4 SEC (9.8-11.6)
[2016-06-12] MEDS ORDERED: THERTAB17 PO (12:43)
[2016-06-12] MEDS ORDERED: FERR325T PO (12:43)
[2016-06-12] MEDS ORDERED: WARF-58 PO (12:49)
[2016-06-12] MEDS ORDERED: COLL30T TOPICAL (12:49)
[2016-06-12 13:04] LABS: ANION GAP 9 MEQ/L (5-15); AST (GOT) 41 U/L (15-37); BICARBONATE 22.9 MEQ/L (21.0-32.0); BLOOD UREA NITROGEN 18 MG/DL (7-18); CHLORIDE 103 MEQ/L (98-107); GLOMERULAR FILTRATION RATE 64 ML/MIN (>89); POTASSIUM 3.7 MEQ/L (3.5-5.1); SODIUM (NA) 135 MEQ/L (136-145)
[2016-06-12 13:12] LABS: ALKALINE PHOSPHATASE 169 U/L (45-117); ALT (GPT) 36 U/L (12-78); TOTAL BILIRUBIN ADULT 0.4 MG/DL (0.2-1.0)
[2016-06-12] MEDS ORDERED: IOHEXOL 350 MG/ML 10 ML VIAL (for RAD DIAG) IV ONE (13:21)
--- NOTE | 2016-06-12 13:50 | RADRPT ---
EXAM DATE/TIME: 06/12/2016 13:19 [place] COMPARISON: Prior study 05/24/2016. INDICATIONS : Midline abdominal pain with black, tarry stool since punctured colon 2 weeks ago. IV CONTRAST: 70 cc Omnipaque 350 (iohexol) IV ORAL CONTRAST: No oral contrast ingested. RADIATION DOSE: 13.29 CTDIvol (mGy) MEDICAL HISTORY : Cardiovascular disease. Hypertension. Diabetes mellitus type 2. SURGICAL HISTORY : Colostomy. ENCOUNTER: Initial ACUITY: 2 weeks PAIN SCALE: 8/10 LOCATION: Middle Abdomen/pelvis TECHNIQUE: Volumetric scanning of the abdomen and pelvis was performed. Using automated exposure control and ad justment of the mA and/or kV according to patient size, radiation dose was kept as low as reasonably achievable to obtain optimal diagnostic quality images. FINDINGS: CT scan abdomen and pelvis was performed. The liver, spleen, adrenal glands and pancreas are unremar kable. The gallbladder is unremarkable except there may be a few small noncalcified gallstones in th e dependent portion. The significant amount of intraperitoneal air seen previously has resolved. The patient has had an a nterior midline incision. There is a large abdominal wall defect. There is some surrounding inflamm atory stranding. I suspect the patient has had a colostomy takedown. Around the anastomotic line in the mid pelvis, there are bilateral areas of low density, possible flu id or hemorrhage. On the right side, the collection measures 5.2 x 3.2 cm. On the left side, the mi xed density collection is 2.4 x 4.6 cm. Both decompress superiorly. To the left of the sigmoid colo n, there is a soft tissue collection measuring 4.1 x 5.1 cm across. The small bowel is nondilated. The colon is nondilated. Bladder is unremarkable. Inguinal regions are unremarkable. I do not see any free intraperitoneal air. CONCLUSION: 1. The patient has had a colonic anastomosis in the mid pelvis. There is a circumferential area of fluid and soft-tissue density surrounding the area. It could be resolving hematoma or conceivably an abscess; measurements given above. I do not see any free intraperitoneal air. I believe the previo us colostomy has been taken down, although there is a large defect in the anterior abdominal wall rem aining. 2. Solid organs of the abdomen are unremarkable. Howard Fernandes MD on June 12, 2016 at 13:39 Board Certified Radiologist. This report was verified electronically.
[2016-06-12] MEDS ORDERED: SODIUM CHLOR 0.9% 250 ML INJ 250 ML IV ONE (14:15)
--- NOTE | 2016-06-12 14:47 | PD ---
Data Data Last Documented VS Vital Signs Date Time Temp Pulse Resp B/P Pulse Ox O2 Delivery O2 Flow Rate FiO2 06/12/16 11:45 100 Room Air 06/12/16 11:43 99.5 106 18 152/76 Orders Complete Blood Count With Diff (06/12/16 11:48) Comprehensive Metabolic Panel (06/12/16 11:48) Lipase (06/12/16 11:48) Prothrombin Time / Inr (Pt) (06/12/16 11:48) Act Partial Throm Time (Ptt) (06/12/16 11:48) Urinalysis - C+S If Indicated (06/12/16 11:48) Ct Abd/Pel W Iv Contrast(Rout) (06/12/16 11:48) Iv Access Insert/Monitor (06/12/16 11:48) Ecg Monitoring (06/12/16 11:48) Oximetry (06/12/16 11:48) Sodium Chloride 0.9% Flush (Ns Flush) (06/12/16 12:00) Electrocardiogram (06/12/16 11:48) Type And Screen (06/12/16 11:48) Blood Culture (06/12/16 11:48) Lactic Acid Sepsis Protocol (06/12/16 11:48) Iohexol 350 Inj (Omnipaque 350 Inj) (06/12/16 13:21) Admit Order (Ed Use Only) (06/12/16 14:06) Red Blood Cells (Rbc) (06/12/16 14:08) Blood Product Administration .UPON TRANSFUSION (06/12/16 14:08) Sodium Chlor 0.9% 250 Ml Inj (Ns 250 Ml (06/12/16 14:15) Furosemide Inj (Lasix Inj) (06/12/16 14:15) Consult Colorectal Surgery (06/12/16 ) Labs Laboratory Tests Test 06/12/16 06/12/16 06/12/16 06/12/16 11:55 12:10 12:20 14:10 White Blood Count 12.1 TH/MM3 Red Blood Count 2.63 MIL/MM3 Hemoglobin 7.1 GM/DL Hematocrit 21.8 % Mean Corpuscular Volume 82.8 FL Mean Corpuscular Hemoglobin 27.0 PG Mean Corpuscular Hemoglobin 32.6 % Concent Red Cell Distribution Width 17.0 % Platelet Count 596 TH/MM3 Mean Platelet Volume 7.3 FL Neutrophils (%) (Auto) 84.5 % Lymphocytes (%) (Auto) 8.5 % Monocytes (%) (Auto) 5.7 % Eosinophils (%) (Auto) 1.0 % Basophils (%) (Auto) 0.3 % Neutrophils # (Auto) 10.2 TH/MM3 Lymphocytes # (Auto) 1.0 TH/MM3 Monocytes # (Auto) 0.7 TH/MM3 Eosinophils # (Auto) 0.1 TH/MM3 Basophils # (Auto) 0.0 TH/MM3 CBC Comment DIFF FINAL Differential Comment Prothrombin Time 25.4 SEC Prothromb Time International 2.2 RATIO Ratio Activated Partial 39.8 SEC Thromboplast Time Sodium Level 135 MEQ/L Potassium Level 3.7 MEQ/L Chloride Level 103 MEQ/L Carbon Dioxide Level 22.9 MEQ/L Anion Gap 9 MEQ/L Blood Urea Nitrogen 18 MG/DL Creatinine 1.16 MG/DL Estimat Glomerular Filtration 64 ML/MIN Rate Random Glucose 212 MG/DL Calcium Level 8.7 MG/DL Total Bilirubin 0.4 MG/DL Aspartate Amino Transf 41 U/L (AST/SGOT) Alanine Aminotransferase 36 U/L (ALT/SGPT) Alkaline Phosphatase 169 U/L Total Protein 7.7 GM/DL Albumin 2.1 GM/DL Lipase 1306 U/L Blood Type A POSITIVE Antibody Screen NEGATIVE Urine Color YELLOW Urine Turbidity CLEAR Urine pH 5.5 Urine Specific [place] 1.020 Urine Protein 30 mg/dL Urine Glucose (UA) 70 mg/dL Urine Ketones NEG mg/dL Urine Occult Blood NEG Urine Nitrite NEG Urine Bilirubin NEG Urine Urobilinogen LESS THAN 2.0 MG/DL Urine Leukocyte Esterase TRACE Urine RBC 17 /hpf Urine WBC 4 /hpf Urine Squamous Epithelial <1 /hpf Cells Urine Bacteria RARE /hpf Urine Yeast (Budding) FEW Microscopic Urinalysis Comment CULT NOT INDICATED Lactic Acid Level 1.0 mmol/L Crossmatch Leukocyte-Reduced Red Blood Cells Blood Bank Comment [facility] Supervised Visit with LOS: Yes Narrative Course The history, exam, and medical decision-making in the associated mid-level provider note were completed with my assistance. I reviewed and agree with the findings presented. I attest that I had a [id number] encounter with the patient on the same day, and personally performed and documented my assessment and findings in the medical record. *My assessment and Findings: 60-year-old man, colostomy, status post recent colonoscopy with perforation status post surgery with Dr. Fuller a new colostomy, presents with maroon blood from his colostomy site and abdominal pain. Guaiac positive stool here. CT scan shows a fluid collection around the anastomosis. We'll plan on admission, consultation with colorectal surgery, transfusion, reassess. Diagnosis Primary Impression: Abdominal pain Qualified Code: R10.12 - Left upper quadrant pain Additional Impressions: Symptomatic anemia Leukocytosis Qualified Code: D72.829 - Leukocytosis, unspecified type Howard Dillard MD Jun 12, 2016 14:46
[2016-06-12] MEDS ORDERED: SODIUM CHLORIDE 0.9% FLUSH 5 ML FLUSH FLUSH PRN (16:45)
[2016-06-12] MEDS ORDERED: MAGNESIUM HYDROXIDE SUSP 30 ML CUP PO PRN (16:45)
[2016-06-12] MEDS ORDERED: ACETAMINOPHEN 325 MG TAB PO PRN (16:45)
[2016-06-12] MEDS ORDERED: NALOXONE HCL 0.4 MG/ML AMP IV PRN (16:45)
[2016-06-12] MEDS ORDERED: ONDANSETRON HCL 4 MG/2 ML VIAL IVP PRN (16:45)
[2016-06-12] MEDS ORDERED: hydrALAZINE HCL 20 MG/ML VIAL IV PUSH PRN (17:00)
[2016-06-12] MEDS ORDERED: Vancomycin Consult Pharmacy 1 EA XX SCH (17:00)
[2016-06-12] MEDS ORDERED: ENALAPRILAT 2.5 MG/2 ML VIAL IV PUSH PRN (17:00)
[2016-06-12] MEDS ORDERED: GLUCAGON 1 MG/ML VIAL OTHER PRN (17:00)
[2016-06-12] MEDS ORDERED: cloNIDine HCL 0.1 MG TAB PO PRN (17:00)
[2016-06-12] MEDS ORDERED: DEXTROSE 50% IN WATER 50 ML VIAL(D50) IV PUSH PRN (17:00)
[2016-06-12] MEDS ORDERED: LORazepam 0.5 MG TAB PO PRN (17:00)
[2016-06-12] MEDS: PANTOPRAZOLE SODIUM 40 MG VIAL IV PUSH SCH (17:40)
[2016-06-12] MEDS: DEXT 5%-NACL 0.9% 1000 ML INJ 1,000 ML IV SCH (17:40)
[2016-06-12] MEDS: metroNIDAZOLE 500 MG INJ 100 ML IV SCH (17:40)
[2016-06-12] MEDS: PIPERACIL-TAZO 3.375 GM PREMIX 50 ML IV SCH ×2 (18:50→23:55)
[2016-06-12] MEDS: ATORVASTATIN 10 MG TAB PO SCH (19:30)
[2016-06-12] MEDS: FERROUS SULFATE 325 MG (65 MG ELEMENTAL IRON) TAB PO SCH (19:30)
[2016-06-12] MEDS ORDERED: PT:SIMBRINZA OPTH SOL EACH EYE SCH (21:00)
[2016-06-12] MEDS ORDERED: BRINZOLAMIDE BRIMONIDINE OPTH EACH EYE SCH (21:00)
[2016-06-12] MEDS: SODIUM CHLORIDE 0.9% FLUSH 5 ML FLUSH FLUSH SCH (21:00)
[2016-06-12] MEDS ORDERED: NON-FORMULARY DRUG (Travoprost Opth Drops (Travatan Z Opth Drops) 1 DROP) EACH EYE SCH (21:00)
[2016-06-12] MEDS: FUROSEMIDE 20 MG/2 ML VIAL IV PUSH PRN ×2 (21:03→23:55)
[2016-06-12] MEDS: VANCOMYCIN INJ 1,750 MG in SODIUM CHLORID 0.9% 500 ML INJ 500 ML IV SCH (21:58)
[2016-06-12] MEDS: INSULIN ASPART SUPPLEMENTAL SCALE SQ SCH (21:58)
[2016-06-12] MEDS: LATANOPROST 0.005% OPHT SOLN 2.5 ML BTL EACH EYE SCH (21:58)
[2016-06-13] VITALS (8 sets, daily range): BP systolic 120–165; BP diastolic 65–91; PULSE 72–105; RESP 18–20; TEMP 97.4–98.7; O2SAT 98–100
[2016-06-13] MEDS: metroNIDAZOLE 500 MG INJ 100 ML IV SCH ×2 (01:24→08:56)
[2016-06-13] MEDS: DEXT 5%-NACL 0.9% 1000 ML INJ 1,000 ML IV SCH (04:55)
[2016-06-13] MEDS: PIPERACIL-TAZO 3.375 GM PREMIX 50 ML IV SCH ×4 (06:35→23:17)
[2016-06-13] MEDS: INSULIN ASPART SUPPLEMENTAL SCALE SQ SCH ×4 (06:39→20:54)
[2016-06-13 06:42] LABS: AUTOMATED NEUTROPHIL # 8.2 TH/MM3 (1.8-7.7); BASOPHIL % 0.3 % (0.0-2.0); EOSINOPHIL # 0.2 TH/MM3 (0-0.4); EOSINOPHIL % 2.1 % (0.0-4.0); HEMATOCRIT 28.1 % (39.0-51.0); HEMO FLAGS DIFF FINAL; LYMPH % 13.4 % (9.0-44.0); LYMPHOCYTE # 1.4 TH/MM3 (1.0-4.8); MEAN CELL VOLUME 83.7 FL (80.0-100.0); MEAN CORPUSCULAR HEMOGLOBIN 27.2 PG (27.0-34.0); MEAN CORPUSCULAR HGB CONC 32.5 % (32.0-36.0); MONO % 8.9 % (0.0-8.0); NEUT % 75.3 % (16.0-70.0); PLATELET COUNT 468 TH/MM3 (150-450); RED BLOOD COUNT 3.36 MIL/MM3 (4.50-5.90); WHITE BLOOD COUNT 10.8 TH/MM3 (4.0-11.0)
[2016-06-13 07:00] LABS: BICARBONATE 22.2 MEQ/L (21.0-32.0); POTASSIUM 3.2 MEQ/L (3.5-5.1)
--- NOTE | 2016-06-13 08:16 | HHI.HP ---
History of Present Illness Primary Care Physician David Mazariegos Admission Diagnosis GI bleed, symptomatic anemia, possible abdominal abscess Diagnoses: (1) Anemia (2) KATHRINE (acute kidney injury) (3) Perforated bowel (4) FEN (5) GI bleed (6) Symptomatic anemia (7) Leukocytosis (8) Abdominal pain (9) SIRS (systemic inflammatory response syndrome) (10) Colostomy status (11) Status post partial resection of colon History of Present Illness 60 y CM. RECENT HOSPITALIZATION W BOWEL PERF. PT WENT TO [facility]. FOUND WITH HGB 6.7 AND WBC 15 K. I SET HIM UP FOR OUTPATIENT TRANSFUSION YESTERDAY. UNFORTUNATELY, HE HAD MASSIVE GIB AT THE SNF. I ORDERED TRANSFER TO ER AND CANCEL OUTPATIENT TRANSFUSION. PT SEEN IN ER. TRANSFUSING. HAS HAD ANOTHER GIB IN ER TODAY. CONFERENCED WITH AGRONOMY RESEARCH MANAGER, SHE IS CONCERNED THAT HE LOOKS SO PALE AND IS VERY WEAK. PT C/O ABDOMINAL PAIN. D/W WOUND NURSE LARGE SACRAL WOUND AND ABDOMINAL INCISIONS AND WOUNDS. Sepsis Criteria SIRS Criteria (2 or more): Heart rate over 90, RR > 20 or PaCO2 < 32 Sepsis Criteria (SIRS+source): Infect source susp/known Severe Sepsis (+one): Organ Dysfunction, Hypotension Criteria Outcome: Meets severe sepsis criteria Review of Systems ROS Limitations: Clinical Condition, Altered Mental Status, Hearing Impaired, Speech Impaired, Poor Historian Past Family Social History Allergies: Coded Allergies: Latex (Verified Allergy, Severe, Rash, 06/12/16) *MDRO Multi-Drug Resistant Organism (Verified Adverse Reaction, Unknown, MRSA, ESBL, MDR Acinetobacter, 06/12/16) MRSA & ESBL (leg wound) - 2012 MDR Acinetobacter baumannii (screen) - 2012 Physical Exam Vital Signs Vital Signs Date Time Temp Pulse Resp B/P Pulse Ox O2 Delivery O2 Flow Rate FiO2 06/13/16 07:30 97.6 95 20 135/91 99 06/13/16 03:21 98.4 100 20 165/83 100 06/12/16 23:18 102 06/12/16 23:06 98.7 108 20 125/71 98 06/12/16 22:31 98.7 108 20 125/71 98 06/12/16 21:30 99.6 95 16 125/71 98 Room Air 06/12/16 21:06 99 06/12/16 20:23 109 20 145/76 98 06/12/16 19:40 99.8 99 20 146/75 99 Room Air 06/12/16 19:27 102 16 144/67 98 Room Air 06/12/16 18:42 98.9 102 24 154/71 99 Room Air 06/12/16 17:30 102 18 132/69 98 Room Air 06/12/16 16:30 101 20 128/69 99 Room Air 06/12/16 15:40 98 20 142/72 99 06/12/16 15:25 100 15 137/80 100 Room Air 06/12/16 14:00 101 20 136/67 99 Room Air 06/12/16 13:00 106 16 122/56 99 Room Air 06/12/16 12:00 100 16 132/64 99 Room Air 06/12/16 11:45 100 Room Air 06/12/16 11:43 99.5 106 18 152/76 100 06/12/16 11:35 99.5 107 20 152/76 100 Physical Exam GENERAL: This is a well-nourished, well-developed patient, in no apparent distress. SKIN: No rashes, ecchymoses or lesions. Cool and dry. HEAD: Atraumatic. Normocephalic. No temporal or scalp tenderness. EYES: Pupils equal round and reactive. Extraocular motions intact. No scleral icterus. No injection or drainage. ENT: Nose without bleeding, purulent drainage or septal hematoma. Throat without erythema, tonsillar hypertrophy or exudate. Uvula midline. Airway patent. NECK: Trachea midline. No JVD or lymphadenopathy. Supple, nontender, no meningeal signs. CARDIOVASCULAR: Regular rate and rhythm without murmurs, gallops, or rubs. RESPIRATORY: Clear to auscultation. Breath sounds equal bilaterally. No wheezes , rales, or rhonchi. GASTROINTESTINAL: Abdomen soft, non-tender, nondistended. No hepato-splenomegaly , or palpable masses. No guarding. MUSCULOSKELETAL: Extremities without clubbing, cyanosis, or edema. No joint tenderness, effusion, or edema noted. No calf tenderness. Negative Homans sign bilaterally. NEUROLOGICAL: Awake and alert. Cranial nerves II through XII intact. Motor and sensory grossly within normal limits. 1 out of 5 muscle strength in all muscle groups. Laboratory Laboratory Tests Test 06/12/16 06/12/16 06/12/16 06/12/16 11:55 12:10 12:20 14:10 White Blood Count 12.1 Red Blood Count 2.63 Hemoglobin 7.1 Hematocrit 21.8 Mean Corpuscular Volume 82.8 Mean Corpuscular Hemoglobin 27.0 Mean Corpuscular Hemoglobin 32.6 Concent Red Cell Distribution Width 17.0 Platelet Count 596 Mean Platelet Volume 7.3 Neutrophils (%) (Auto) 84.5 Lymphocytes (%) (Auto) 8.5 Monocytes (%) (Auto) 5.7 Eosinophils (%) (Auto) 1.0 Basophils (%) (Auto) 0.3 Neutrophils # (Auto) 10.2 Lymphocytes # (Auto) 1.0 Monocytes # (Auto) 0.7 Eosinophils # (Auto) 0.1 Basophils # (Auto) 0.0 CBC Comment DIFF FINAL Differential Comment Prothrombin Time 25.4 Prothromb Time International 2.2 Ratio Activated Partial 39.8 Thromboplast Time Sodium Level 135 Potassium Level 3.7 Chloride Level 103 Carbon Dioxide Level 22.9 Anion Gap 9 Blood Urea Nitrogen 18 Creatinine 1.16 Estimat Glomerular Filtration 64 Rate Random Glucose 212 Calcium Level 8.7 Total Bilirubin 0.4 Aspartate Amino Transf 41 (AST/SGOT) Alanine Aminotransferase 36 (ALT/SGPT) Alkaline Phosphatase 169 Total Protein 7.7 Albumin 2.1 Lipase 1306 Blood Type A POSITIVE Antibody Screen NEGATIVE Urine Color YELLOW Urine Turbidity CLEAR Urine pH 5.5 Urine Specific [place] 1.020 Urine Protein 30 Urine Glucose (UA) 70 Urine Ketones NEG Urine Occult Blood NEG Urine Nitrite NEG Urine Bilirubin NEG Urine Urobilinogen LESS THAN 2.0 Urine Leukocyte Esterase TRACE Urine RBC 17 Urine WBC 4 Urine Squamous Epithelial <1 Cells Urine Bacteria RARE Urine Yeast (Budding) FEW Microscopic Urinalysis Comment CULT NOT INDICATED Lactic Acid Level 1.0 Crossmatch Leukocyte-Reduced Red Blood Cells Blood Bank Comment Test 06/13/16 06:13 White Blood Count 10.8 Red Blood Count 3.36 Hemoglobin 9.1 Hematocrit 28.1 Mean Corpuscular Volume 83.7 Mean Corpuscular Hemoglobin 27.2 Mean Corpuscular Hemoglobin 32.5 Concent Red Cell Distribution Width 18.0 Platelet Count 468 Mean Platelet Volume 7.0 Neutrophils (%) (Auto) 75.3 Lymphocytes (%) (Auto) 13.4 Monocytes (%) (Auto) 8.9 Eosinophils (%) (Auto) 2.1 Basophils (%) (Auto) 0.3 Neutrophils # (Auto) 8.2 Lymphocytes # (Auto) 1.4 Monocytes # (Auto) 1.0 Eosinophils # (Auto) 0.2 Basophils # (Auto) 0.0 CBC Comment DIFF FINAL Differential Comment Sodium Level 138 Potassium Level 3.2 Chloride Level 106 Carbon Dioxide Level 22.2 Anion Gap 10 Blood Urea Nitrogen 16 Creatinine 1.27 Estimat Glomerular Filtration 57 Rate Random Glucose 228 Calcium Level 8.3 Date/Time Procedure Status Source Growth 06/12/16 12:20 Aerobic Blood Culture Received Blood Peripheral Pending 06/12/16 12:20 Anaerobic Blood Culture Received Blood Peripheral Pending Result Diagram: 06/13/1661206/13/16612 Assessment and Plan Problem List: (1) Anemia Status: Acute (2) KATHRINE (acute kidney injury) Status: Acute (3) Perforated bowel Status: Acute (4) FEN Status: Acute (5) GI bleed Status: Acute (6) Symptomatic anemia Status: Acute (7) Leukocytosis Status: Acute (8) Abdominal pain Status: Acute (9) SIRS (systemic inflammatory response syndrome) Status: Acute (10) Colostomy status Status: Acute (11) Status post partial resection of colon Status: Acute Assessment and Plan GIB PERFORATED BOWEL S/P COLONOSCOPY FOR GIB AND BLOOD LOSS ANEMIA MAY 23. OPEN REPAIR MAY 24 WITH NEW OSTOMY PLACEMENT. SEVERE SEPSIS FLUID OVERLOAD VS HCAP LACTIC ACIDOSIS KATHRINE. RENAL US SHOWED MRD. DM HTN PAD R BKA CVA. Mitral valve replacement, on coumadin therapy. Coronary artery disease with a history of CABG PLAN: TRANSFUSE NPO IVF IV ABX INSULIN HOLD COUMADIN SURGICAL CONSULT ID CONSULT WOUND CONSULT OBS ADMIT Problem Qualifiers (1) Leukocytosis: Qualified Code: D72.829 - Leukocytosis, unspecified type (2) Abdominal pain: Qualified Code: R10.12 - Left upper quadrant pain Victor Manuel Jones MD Jun 13, 2016 08:16
[2016-06-13] MEDS: FERROUS SULFATE 325 MG (65 MG ELEMENTAL IRON) TAB PO SCH ×2 (08:55→20:55)
[2016-06-13] MEDS: SODIUM CHLORIDE 0.9% FLUSH 5 ML FLUSH FLUSH SCH ×2 (08:56→20:55)
[2016-06-13] MEDS: FUROSEMIDE 40 MG/4 ML VIAL IV PUSH SCH (08:56)
[2016-06-13] MEDS: METOPROLOL SUCCINATE 50 MG EXTENDED RELEASE TAB PO SCH (08:56)
[2016-06-13] MEDS: D5-NS + KCL 20 MEQ INJ 1,000 ML IV SCH (09:01)
[2016-06-13] MEDS: VANCOMYCIN INJ 1,750 MG in SODIUM CHLORID 0.9% 500 ML INJ 500 ML IV SCH (10:06)
--- NOTE | 2016-06-13 13:05 | PD.CONS ---
History of Present Illness Service Infectious disease Consult Requested By Dr Lilia Jones Reason for Consult Evaluate patient for possible sepsis Primary Care Physician David Mazariegos Diagnoses: History of Present Illness Patient seen and examined. Records reviewed. Patient is a 61-year-old male recently hospitalized May 24 2 May 29 after he was found to have pneumoperitoneum after he underwent an outpatient colonoscopy. He underwent emergency surgery, and had exploratory laparotomy, proctosigmoidectomy, Toshia's pouch and resection. He had evidence of fecal contamination. Patient improved clinically, and he was discharged to the skilled nursing. According to the record he had labs done in the skilled nursing, and his hemoglobin was found to be 6.7. He was scheduled to get outpatient blood transfusion, but according to the notes he had evidence of bleeding in his colostomy, social he was out into the hospital for further evaluation and treatment. Output from the colostomy was guaiac-positive. CT of the abdomen and pelvis did show some multiple fluid collections. Patient has some mild abdominal pain. He denies any nausea or vomiting. His WBC was mildly elevated and his hemoglobin was 7. Infectious disease consultations be requested to evaluate for possible sepsis. Review of Systems Constitutional: DENIES: Fever, Chills, Night Sweats Eyes: DENIES: Eye pain Ears, nose, mouth, throat: DENIES: Nasal discharge, Oral lesions, Throat pain, Ear Pain, Sinus Pain, Toothache Respiratory: DENIES: Cough, Wheezing, Shortness of breath Cardiovascular: DENIES: Chest pain, Palpitations, Syncope Gastrointestinal: COMPLAINS OF: Abdominal pain, DENIES: Nausea, Vomiting, Difficulty Swallowing Musculoskeletal: DENIES: Joint pain, Joint Swelling Integumentary: DENIES: Rash Neurologic: DENIES: Headache Past Family Social History Allergies: Coded Allergies: Latex (Verified Allergy, Severe, Rash, 06/12/16) *MDRO Multi-Drug Resistant Organism (Verified Adverse Reaction, Unknown, MRSA, ESBL, MDR Acinetobacter, 06/13/16) MRSA & ESBL (leg wound) - 2012 MDR Acinetobacter baumannii (screen x 2) - 2012 MDR Pseudomonas (buttock) - 12/04/12 ESBL (urine) - 09/19/12 VRE (buttock) - 08/18/12 Past Medical History Sacral decubitus DM HTN Stroke x2 CABG PVD Past Surgical History Right AKA Previous diverting colostomy Recent expiratory laparotomy, proctosigmoidectomy, Toshia's pouch and resection and revision of his colostomy Active Ordered Medications Tylenol [place] Lipitor Clonidine Vasotec Ferrous sulfate Lasix Hydralazine Insulin Ativan MOM Lopressor Flagyl Zofran Protonix Zosyn Potassium Social History Has been in the rehabilitation facility Ex-smoker Alcohol abuse No illicit drug use Physical Exam Vital Signs Vital Signs Date Time Temp Pulse Resp B/P Pulse Ox O2 Delivery O2 Flow Rate FiO2 06/13/16 11:15 103 06/13/16 11:11 97.4 105 18 128/78 100 06/13/16 09:17 99 21 06/13/16 07:30 97.6 95 20 135/91 99 06/13/16 03:21 98.4 100 20 165/83 100 06/12/16 23:18 102 06/12/16 23:06 98.7 108 20 125/71 98 06/12/16 22:31 98.7 108 20 125/71 98 06/12/16 21:30 99.6 95 16 125/71 98 Room Air 06/12/16 21:06 99 06/12/16 20:23 109 20 145/76 98 06/12/16 19:40 99.8 99 20 146/75 99 Room Air 06/12/16 19:27 102 16 144/67 98 Room Air 06/12/16 18:42 98.9 102 24 154/71 99 Room Air 06/12/16 17:30 102 18 132/69 98 Room Air 06/12/16 16:30 101 20 128/69 99 Room Air 06/12/16 15:40 98 20 142/72 99 06/12/16 15:25 100 15 137/80 100 Room Air 06/12/16 14:00 101 20 136/67 99 Room Air 06/12/16 13:00 106 16 122/56 99 Room Air Physical Exam GENERAL: This is a well-nourished, well-developed male, awake and alert, not in any respiratory distress. SKIN: Warm and dry, no generalized rash or ecchymosis. HEAD: Atraumatic. Normocephalic. No temporal or scalp tenderness. EYES: Pupils equal round and reactive. Extraocular motions intact. No scleral icterus. No injection or drainage. ENT: Nose without bleeding, or purulent drainage. Slightly dry oral mucosa. Throat without erythema, tonsillar hypertrophy or exudate. Uvula midline. Airway patent. NECK: Trachea midline. No JVD or lymphadenopathy. Supple, nontender, no meningeal signs. CARDIOVASCULAR: Regular rate and rhythm without murmurs, gallops, or rubs. RESPIRATORY: Clear to auscultation. Breath sounds equal bilaterally. No wheezes , rales, or rhonchi. GASTROINTESTINAL: Abdomen soft, with mild diffuse tenderness, nondistended. Bowel sounds are present and normoactive. Has a midline incision, and there are 2 open areas with packing, with red tissue, no necrotic tissue, no purulence , no erythema noted. Colostomy with good output. Below the colostomy is an open wound which was the previous site of his loop colostomy, and it measures about 3 inches long and it's fairly deep with red tissue at the base, no necrotic tissue or purulence noted. No hepato-splenomegaly, or palpable masses. No guarding. No rebound. MUSCULOSKELETAL: Extremities without clubbing, cyanosis, or edema. No joint tenderness, or effusion. No calf tenderness. Well healed R AKA stump NEUROLOGICAL: Awake and alert. Cranial nerves II through XII intact. Good strength both UE PSYCH: Calm and cooperative BACK: Has sacral decubitus, with some slough, but no purulence or erythema noted Laboratory Laboratory Tests Test 06/12/16 06/13/16 14:10 06:13 Crossmatch Leukocyte-Reduced Red Blood Cells Blood Bank Comment White Blood Count 10.8 Red Blood Count 3.36 Hemoglobin 9.1 Hematocrit 28.1 Mean Corpuscular Volume 83.7 Mean Corpuscular Hemoglobin 27.2 Mean Corpuscular Hemoglobin 32.5 Concent Red Cell Distribution Width 18.0 Platelet Count 468 Mean Platelet Volume 7.0 Neutrophils (%) (Auto) 75.3 Lymphocytes (%) (Auto) 13.4 Monocytes (%) (Auto) 8.9 Eosinophils (%) (Auto) 2.1 Basophils (%) (Auto) 0.3 Neutrophils # (Auto) 8.2 Lymphocytes # (Auto) 1.4 Monocytes # (Auto) 1.0 Eosinophils # (Auto) 0.2 Basophils # (Auto) 0.0 CBC Comment DIFF FINAL Differential Comment Sodium Level 138 Potassium Level 3.2 Chloride Level 106 Carbon Dioxide Level 22.2 Anion Gap 10 Blood Urea Nitrogen 16 Creatinine 1.27 Estimat Glomerular Filtration 57 Rate Random Glucose 228 Calcium Level 8.3 Date/Time Procedure Status Source Growth 06/12/16 12:20 Aerobic Blood Culture - Preliminary Resulted Blood Peripheral NO GROWTH IN 1 DAY 06/12/16 12:20 Anaerobic Blood Culture - Preliminary Resulted Blood Peripheral NO GROWTH IN 1 DAY Result Diagram: 06/13/16 0613 06/13/16 0613 Imaging RADIOLOGY STUDIES/FILMS REVIEWED Abdomen/Pelvis CT 06/12/16 1148 Signed Impressions: Service Date/Time: Sunday, June 12, 2016 13:19 - CONCLUSION: 1. The patient has had a colonic anastomosis in the mid pelvis. There is a circumferential area of fluid and soft-tissue density surrounding the area. It could be resolving hematoma or conceivably an abscess; measurements given above. I do not see any free intraperitoneal air. I believe the previous colostomy has been taken down, although there is a large defect in the anterior abdominal wall remaining. 2. Solid organs of the abdomen are unremarkable. Howard Fernandes MD Assessment and Plan Assessment and Plan IMPRESSION GI Bleed, he has had problem with previous GIB Fluid collections in abdomen, possibly seroma, hematoma, ?abscess Recent explor lap for perforated rectosigmoid 05/24/15 Renal insufficiency Sacral decubitus, does not look infected RECOMMENDATION Contnue Zosyn D/C other Abx CRS to evaluate Monitor progress Will D/W CRS if needed to sample the fluid collections - his abdominal exam is not that remarkable Follow C/S Monitor progress I will follow along with you Thank you for this consultation Latanya Das MD Jun 13, 2016 13:05
--- NOTE | 2016-06-13 15:57 | EKG ---
Date Performed: 06/12/2016 Time Performed: 12:05:39 PTAGE: 60 years EKG: SINUS TACHYCARDIA Compared to prior tracing no significant change ABNORMAL RHYTHM ECG PREVIOUS TRACING : 05/24/2016 13.15 DOCTOR: Lilia Guo Interpretating Date/Time 06/13/2016 15:55:20
[2016-06-13] MEDS ORDERED: POTASSIUM CHLORIDE INJ 20 MEQ in DEXT 5%-NACL 0.9% 1000 ML INJ 1,000 ML IV SCH (17:00)
[2016-06-13] MEDS: PANTOPRAZOLE SODIUM 40 MG VIAL IV PUSH SCH (17:24)
[2016-06-13] MEDS: ATORVASTATIN 10 MG TAB PO SCH (20:54)
[2016-06-13] MEDS: LATANOPROST 0.005% OPHT SOLN 2.5 ML BTL EACH EYE SCH (20:55)
[2016-06-13] MEDS: ACETAMINOPHEN/HYDROcodone 325 MG/5 MG TAB PO PRN (21:01)
--- NOTE | 2016-06-13 22:19 | HHI.PR ---
Subjective Remarks C/R Surg afebrile, VSS c/o rectal disch/BRB stoma funct Objective - Vital Signs Date Time Temp Pulse Resp B/P Pulse Ox O2 Delivery O2 Flow Rate FiO2 06/13/16 19:38 98.7 102 20 120/65 98 06/13/16 09:17 21 06/12/16 21:30 Room Air Result Diagram: 06/13/1613 06/13/16 0613 Objective Remarks PE alert Abd - soft, stoma funct, wound better A/P Assessment and Plan Imp: watch H/H hold coumadin procto if more bleeding Helder Fuller MD Jun 13, 2016 22:19
[2016-06-14] VITALS (10 sets, daily range): BP systolic 136–187; BP diastolic 76–99; PULSE 81–91; RESP 16–22; TEMP 96.4–98.2; O2SAT 98–100
[2016-06-14] MEDS: PIPERACIL-TAZO 3.375 GM PREMIX 50 ML IV SCH ×3 (05:53→16:44)
[2016-06-14] MEDS: INSULIN ASPART SUPPLEMENTAL SCALE SQ SCH ×4 (05:54→21:43)
[2016-06-14] MEDS ORDERED: PHARMACY ORDERED LAB XX ONE (07:45)
[2016-06-14 08:16] LABS: AUTOMATED NEUTROPHIL # 6.8 TH/MM3 (1.8-7.7); BASOPHIL % 0.3 % (0.0-2.0); EOSINOPHIL # 0.4 TH/MM3 (0-0.4); EOSINOPHIL % 4.1 % (0.0-4.0); HEMATOCRIT 25.5 % (39.0-51.0); HEMO FLAGS DIFF FINAL; LYMPH % 15.8 % (9.0-44.0); LYMPHOCYTE # 1.4 TH/MM3 (1.0-4.8); MEAN CELL VOLUME 81.5 FL (80.0-100.0); MEAN CORPUSCULAR HEMOGLOBIN 28.3 PG (27.0-34.0); MEAN CORPUSCULAR HGB CONC 34.7 % (32.0-36.0); NEUT % 73.8 % (16.0-70.0); PLATELET COUNT 464 TH/MM3 (150-450); RED BLOOD COUNT 3.13 MIL/MM3 (4.50-5.90); RED CELL DISTRIBUTION WIDTH 17.8 % (11.6-17.2); WHITE BLOOD COUNT 9.2 TH/MM3 (4.0-11.0)
[2016-06-14 08:24] LABS: INTERNATIONAL NORMALIZED RATIO 2.1 RATIO; PROTHROMBIN TIME - PATIENT 23.7 SEC (9.8-11.6)
[2016-06-14 08:38] LABS: BICARBONATE 22.1 MEQ/L (21.0-32.0); POTASSIUM 3.2 MEQ/L (3.5-5.1)
[2016-06-14] MEDS: SODIUM CHLORIDE 0.9% FLUSH 5 ML FLUSH FLUSH SCH ×2 (08:44→21:43)
[2016-06-14] MEDS: FERROUS SULFATE 325 MG (65 MG ELEMENTAL IRON) TAB PO SCH ×2 (08:44→21:43)
[2016-06-14] MEDS: METOPROLOL SUCCINATE 50 MG EXTENDED RELEASE TAB PO SCH (08:44)
[2016-06-14] MEDS: FUROSEMIDE 40 MG/4 ML VIAL IV PUSH SCH (08:44)
[2016-06-14] MEDS: D5-NS + KCL 20 MEQ INJ 1,000 ML IV SCH (09:24)
[2016-06-14] MEDS: ACETAMINOPHEN/HYDROcodone 325 MG/5 MG TAB PO PRN (09:24)
--- NOTE | 2016-06-14 11:32 | HHI.FPPN ---
Subjective Remarks C/O ABD PAIN C/O WEAKNESS D/W RN LABORER WRECKING AND SALVAGING NOTES REVIEWED LABS REVIEWED TELE REVIEWED Objective Vitals Vital Signs Date Time Temp Pulse Resp B/P Pulse Ox O2 Delivery O2 Flow Rate FiO2 06/14/16 08:00 97.4 87 18 187/99 98 06/14/16 06:55 21 06/14/16 04:15 98.2 85 20 162/79 99 06/14/16 00:52 97.6 82 20 140/79 100 06/13/16 23:00 72 06/13/16 22:01 14 06/13/16 20:00 94 06/13/16 19:38 98.7 102 20 120/65 98 I/O 06/13/16 06/13/16 06/13/16 06/14/16 06/14/16 06/14/16 07:00 15:00 23:00 07:00 15:00 23:00 Output Total 560 ml Balance -560 ml Output Urine Total 560 ml Result Diagram: 06/14/16 0749 06/14/16 0749 Objective Remarks GENERAL: SKIN: Warm and dry. HEAD: Atraumatic. Normocephalic. EYES: Pupils equal and round. No scleral icterus. No injection or drainage. ENT: No nasal bleeding or discharge. Mucous membranes pink and moist. NECK: Trachea midline. No JVD. CARDIOVASCULAR: Regular rate and rhythm. RESPIRATORY: No accessory muscle use. Clear to auscultation. Breath sounds equal bilaterally. GASTROINTESTINAL: Abdomen soft, non-tender, nondistended. Hepatic and splenic margins not palpable. MUSCULOSKELETAL: Extremities without clubbing, cyanosis, or edema. No obvious deformities. NEUROLOGICAL: Awake and alert. No obvious cranial nerve deficits. Motor grossly within normal limits. 1 out of 5 muscle strength in the arms and legs. Normal speech. PSYCHIATRIC: Appropriate mood and affect; insight and judgment normal. Medications and IVs Current Medications Medications (Trade) Dose Ordered Sig/Celestine Route Start Time Stop Time Status Last Admin (Lasix Inj) 20 mg ONCE PRN IV PUSH 06/12/16 14:15 06/12/16 23:55 (Tylenol) 650 mg Q4H PRN PO 06/12/16 16:45 (Lipitor) 10 mg HS PO 06/12/16 21:00 06/13/16 20:54 (Ferrous Sulfate) 325 mg BID PO 06/12/16 21:00 06/14/16 08:44 (Shedd 5-325 Mg) 1 tab Q4H PRN PO 06/12/16 16:45 06/14/16 09:24 (Toprol Xl) 100 mg DAILY PO 06/13/16 09:00 06/14/16 08:44 (NS Flush) 2 ml UNSCH PRN FLUSH 06/12/16 16:45 06/12/16 23:56 (NS Flush) 2 ml BID FLUSH 06/12/16 21:00 06/14/16 08:44 (Zofran Inj) 4 mg Q6H PRN IVP 06/12/16 16:45 (Milk Of Magnesia Liq) 30 ml Q12H PRN PO 06/12/16 16:45 (Narcan Inj) 0.4 mg UNSCH PRN IV 06/12/16 16:45 (Ativan) 0.5 mg Q8H PRN PO 06/12/16 17:00 (Catapres) 0.1 mg Q6H PRN PO 06/12/16 17:00 06/13/16 04:16 (Vasotec Inj) 2.5 mg Q6H PRN IV PUSH 06/12/16 17:00 (Lasix Inj) 40 mg DAILY IV PUSH 06/13/16 09:00 06/14/16 08:44 Hydralazine HCl 20 mg 20 mg Q4H PRN IV PUSH 06/12/16 17:00 (Zosyn 3.375 Gm Premix) 50 ml @ 100 mls/hr Q6H IV 06/12/16 18:00 06/14/16 11:25 (Protonix Inj) 40 mg Q24H IV PUSH 06/12/16 17:00 06/13/16 17:24 (D50w (Vial) Inj) 25 ml UNSCH PRN IV PUSH 06/12/16 17:00 (Glucagon Inj) 1 mg UNSCH PRN OTHER 06/12/16 17:00 (Xalatan 0.005% Opth Soln) 1 drop HS EACH EYE 06/12/16 21:00 06/13/16 20:55 Patient Own Medication PT OWN MED: SIMBRI... BID EACH EYE 06/12/16 21:00 Hold (D5-NS + KCl 20 Meq Inj) 1,000 ml @ 42 mls/hr [id number] IV 06/13/16 09:00 06/14/16 09:24 A/P Assessment and Plan ABDOMINAL FLUID COLLECTION GIB. TRANSFUSED PERFORATED BOWEL S/P COLONOSCOPY FOR GIB AND BLOOD LOSS ANEMIA MAY 23. OPEN REPAIR MAY 24 WITH NEW OSTOMY PLACEMENT. SEVERE SEPSIS FLUID OVERLOAD VS HCAP LACTIC ACIDOSIS KATHRINE. RENAL US SHOWED MRD. DM HTN PAD R BKA CVA. Mitral valve replacement, on coumadin therapy. Coronary artery disease with a history of CABG PLAN: NPO IVF IV ABX INSULIN HOLD COUMADIN SURGICAL CONSULT ID CONSULT WOUND CONSULT PT HAS BEEN OBS FOR TWO MN. EXPECT 3 MORE D INPT STAY. PT WOULD RETURN TO ER IF D/C. DC BACK TO SNF Victor Manuel Pastor MD Jun 14, 2016 11:32
[2016-06-14] MEDS: D5-1/2 NS + KCL 40 MEQ INJ 1,000 ML IV SCH (13:16)
--- NOTE | 2016-06-14 14:02 | HHI.IDPN ---
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 Vital Signs Date Time Temp Pulse Resp B/P Pulse Ox O2 Delivery O2 Flow Rate FiO2 06/14/16 12:00 97.8 83 16 182/85 99 06/14/16 08:00 97.4 87 18 187/99 98 06/14/16 06:55 21 06/14/16 04:15 98.2 85 20 162/79 99 06/14/16 00:52 97.6 82 20 140/79 100 06/13/16 23:00 72 06/13/16 22:01 14 06/13/16 20:00 94 06/13/16 19:38 98.7 102 20 120/65 98 06/13/16 06/13/16 06/14/16 15:00 23:00 07:00 Output Total 560 ml Balance -560 ml Output Urine Total 560 ml . Laboratory Tests Test 06/13/16 06/14/16 06:13 07:49 White Blood Count 10.8 TH/MM3 9.2 TH/MM3 Red Blood Count 3.36 MIL/MM3 3.13 MIL/MM3 Hemoglobin 9.1 GM/DL 8.9 GM/DL Hematocrit 28.1 % 25.5 % Mean Corpuscular Volume 83.7 FL 81.5 FL Mean Corpuscular Hemoglobin 27.2 PG 28.3 PG Mean Corpuscular Hemoglobin 32.5 % 34.7 % Concent Red Cell Distribution Width 18.0 % 17.8 % Platelet Count 468 TH/MM3 464 TH/MM3 Mean Platelet Volume 7.0 FL 7.0 FL Neutrophils (%) (Auto) 75.3 % 73.8 % Lymphocytes (%) (Auto) 13.4 % 15.8 % Monocytes (%) (Auto) 8.9 % 6.0 % Eosinophils (%) (Auto) 2.1 % 4.1 % Basophils (%) (Auto) 0.3 % 0.3 % Neutrophils # (Auto) 8.2 TH/MM3 6.8 TH/MM3 Lymphocytes # (Auto) 1.4 TH/MM3 1.4 TH/MM3 Monocytes # (Auto) 1.0 TH/MM3 0.6 TH/MM3 Eosinophils # (Auto) 0.2 TH/MM3 0.4 TH/MM3 Basophils # (Auto) 0.0 TH/MM3 0.0 TH/MM3 CBC Comment DIFF FINAL DIFF FINAL Differential Comment Laboratory Tests Test 06/13/16 06/14/16 06:13 07:49 Sodium Level 138 MEQ/L 140 MEQ/L Potassium Level 3.2 MEQ/L 3.2 MEQ/L Chloride Level 106 MEQ/L 108 MEQ/L Carbon Dioxide Level 22.2 MEQ/L 22.1 MEQ/L Anion Gap 10 MEQ/L 10 MEQ/L Blood Urea Nitrogen 16 MG/DL 14 MG/DL Creatinine 1.27 MG/DL 1.24 MG/DL Estimat Glomerular Filtration 57 ML/MIN 59 ML/MIN Rate Random Glucose 228 MG/DL 200 MG/DL Calcium Level 8.3 MG/DL 8.4 MG/DL Magnesium Level 1.7 MG/DL Microbiology Date/Time Procedure Status Source Growth 06/12/16 11:55 Aerobic Blood Culture - Preliminary Resulted Blood Peripheral NO GROWTH IN 2 DAYS 06/12/16 11:55 Anaerobic Blood Culture - Preliminary Resulted Blood Peripheral NO GROWTH IN 2 DAYS 06/12/16 12:20 Aerobic Blood Culture - Preliminary Resulted Blood Peripheral NO GROWTH IN 2 DAYS 06/12/16 12:20 Anaerobic Blood Culture - Preliminary Resulted Blood Peripheral NO GROWTH IN 2 DAYS Imaging Abdomen/Pelvis CT 06/12/16 1148 Signed Impressions: Service Date/Time: Sunday, June 12, 2016 13:19 - CONCLUSION: 1. The patient has had a colonic anastomosis in the mid pelvis. There is a circumferential area of fluid and soft-tissue density surrounding the area. It could be resolving hematoma or conceivably an abscess; measurements given above. I do not see any free intraperitoneal air. I believe the previous colostomy has been taken down, although there is a large defect in the anterior abdominal wall remaining. 2. Solid organs of the abdomen are unremarkable. Howard Fernandes MD Physical Exam GENERAL: awake and alert, not in any respiratory distress. SKIN: Warm and dry, no generalized rash or ecchymosis. HEENT: Pupils equal round and reactive. No scleral icterus. No injection or drainage. Slightly dry oral mucosa. NECK: Trachea midline. No JVD or lymphadenopathy. Supple, nontender, no meningeal signs. CARDIOVASCULAR: Regular rate and rhythm without murmurs, gallops, or rubs. RESPIRATORY: Clear to auscultation. Breath sounds equal bilaterally. No wheezes , rales, or rhonchi. GASTROINTESTINAL: Abdomen soft, with mild diffuse tenderness, nondistended. Bowel sounds are present and normoactive. Has a midline incision, and there are 2 open areas with packing, with red tissue, no necrotic tissue, no purulence , no erythema noted. Colostomy with good output. Below the colostomy is an open wound which was the previous site of his loop colostomy, and it measures about 3 inches long and it's fairly deep with red tissue at the base, no necrotic tissue or purulence noted. No hepato-splenomegaly, or palpable masses. No guarding. No rebound. MUSCULOSKELETAL: Extremities without clubbing, cyanosis, or edema. No joint tenderness, or effusion. No calf tenderness. Well healed R AKA stump NEUROLOGICAL: Awake and alert. Cranial nerves II through XII intact. Good strength both UE PSYCH: Calm and cooperative BACK: Has sacral decubitus, with some slough, but no purulence or erythema noted Assessment & Plan Remarks IMPRESSION GI Bleed, he has had problem with previous GIB Fluid collections in abdomen, possibly seroma, hematoma, ?abscess Recent explor lap for perforated rectosigmoid 05/24/15 Renal insufficiency Sacral decubitus, does not look infected RECOMMENDATION Continue Zosyn Monitor progress Follow C/S D/C Abx if C/S negative Latanya Das MD Jun 14, 2016 14:02
[2016-06-14] MEDS: PANTOPRAZOLE SODIUM 40 MG VIAL IV PUSH SCH (16:44)
[2016-06-14] MEDS: LATANOPROST 0.005% OPHT SOLN 2.5 ML BTL EACH EYE SCH (21:43)
[2016-06-14] MEDS: ATORVASTATIN 10 MG TAB PO SCH (21:43)
--- NOTE | 2016-06-14 22:15 | HHI.PR ---
Subjective Remarks C/R Surg afebrile, VSS c/o min rectal disch stoma funct Objective - Vital Signs Date Time Temp Pulse Resp B/P Pulse Ox O2 Delivery O2 Flow Rate FiO2 06/14/16 20:04 96.8 89 22 143/87 100 06/14/16 06:55 21 06/12/16 21:30 Room Air Result Diagram: 06/14/16 0749 06/14/16 0749 Objective Remarks PE alert Abd - soft, stoma funct, wound better, staple dc'd A/P Assessment and Plan Imp: watch H/H hold coumadin procto if more bleeding dc plans Helder Fuller MD Jun 14, 2016 22:15
[2016-06-15] VITALS (7 sets, daily range): BP systolic 135–199; BP diastolic 80–100; PULSE 76–90; RESP 18–20; TEMP 97.6–98.3; O2SAT 96–99
[2016-06-15] MEDS: PIPERACIL-TAZO 3.375 GM PREMIX 50 ML IV SCH ×3 (00:05→11:04)
[2016-06-15] MEDS: INSULIN ASPART SUPPLEMENTAL SCALE SQ SCH ×4 (06:24→20:21)
[2016-06-15] MEDS: FUROSEMIDE 40 MG/4 ML VIAL IV PUSH SCH (09:00)
[2016-06-15 09:05] LABS: AUTOMATED NEUTROPHIL # 6.2 TH/MM3 (1.8-7.7); BASOPHIL # 0.1 TH/MM3 (0-0.2); BASOPHIL % 1.2 % (0.0-2.0); EOSINOPHIL # 0.4 TH/MM3 (0-0.4); EOSINOPHIL % 4.4 % (0.0-4.0); HEMATOCRIT 29.6 % (39.0-51.0); HEMO FLAGS DIFF FINAL; LYMPH % 17.2 % (9.0-44.0); LYMPHOCYTE # 1.5 TH/MM3 (1.0-4.8); MEAN CELL VOLUME 80.8 FL (80.0-100.0); MEAN CORPUSCULAR HEMOGLOBIN 27.1 PG (27.0-34.0); MEAN CORPUSCULAR HGB CONC 33.5 % (32.0-36.0); MONO % 6.6 % (0.0-8.0); NEUT % 70.6 % (16.0-70.0); PLATELET COUNT 487 TH/MM3 (150-450); RED BLOOD COUNT 3.67 MIL/MM3 (4.50-5.90); RED CELL DISTRIBUTION WIDTH 17.8 % (11.6-17.2); WHITE BLOOD COUNT 8.8 TH/MM3 (4.0-11.0)
[2016-06-15 09:33] LABS: BICARBONATE 25.2 MEQ/L (21.0-32.0); POTASSIUM 3.4 MEQ/L (3.5-5.1)
[2016-06-15] MEDS: FERROUS SULFATE 325 MG (65 MG ELEMENTAL IRON) TAB PO SCH ×2 (10:02→20:20)
[2016-06-15] MEDS: METOPROLOL SUCCINATE 50 MG EXTENDED RELEASE TAB PO SCH (10:03)
[2016-06-15] MEDS: SODIUM CHLORIDE 0.9% FLUSH 5 ML FLUSH FLUSH SCH ×2 (10:04→20:20)
[2016-06-15] MEDS: D5-1/2 NS + KCL 40 MEQ INJ 1,000 ML IV SCH (10:06)
[2016-06-15] MEDS: ACETAMINOPHEN/HYDROcodone 325 MG/5 MG TAB PO PRN ×2 (11:03→18:13)
--- NOTE | 2016-06-15 12:52 | HHI.FPPN ---
Objective Vitals Vital Signs Date Time Temp Pulse Resp B/P Pulse Ox O2 Delivery O2 Flow Rate FiO2 06/15/16 10:22 98.3 90 18 146/85 97 06/15/16 04:27 97.8 79 18 135/88 98 06/14/16 23:00 91 06/14/16 20:04 96.8 89 22 143/87 100 06/14/16 20:00 91 06/14/16 19:17 98 06/14/16 16:05 96.4 86 18 136/76 99 06/14/16 15:00 81 I/O 06/14/16 06/14/16 06/14/16 06/15/16 06/15/16 06/15/16 07:00 15:00 23:00 07:00 15:00 23:00 Intake Total 820 ml 240 ml Output Total 750 ml 600 ml Balance 70 ml -360 ml Intake Oral 360 ml 240 ml IV Total 460 ml Output Urine Total 400 ml 400 ml Stool Total 350 ml 200 ml Result Diagram: 06/15/16 0852 06/15/16 0852 Objective Remarks GENERAL: SKIN: Warm and dry. HEAD: Atraumatic. Normocephalic. EYES: Pupils equal and round. No scleral icterus. No injection or drainage. ENT: No nasal bleeding or discharge. Mucous membranes pink and moist. NECK: Trachea midline. No JVD. CARDIOVASCULAR: Regular rate and rhythm. RESPIRATORY: No accessory muscle use. Clear to auscultation. Breath sounds equal bilaterally. GASTROINTESTINAL: Abdomen soft, non-tender, nondistended. Hepatic and splenic margins not palpable. MUSCULOSKELETAL: Extremities without clubbing, cyanosis, or edema. No obvious deformities. NEUROLOGICAL: Awake and alert. No obvious cranial nerve deficits. Motor grossly within normal limits. 1 out of 5 muscle strength in the arms and legs. Normal speech. PSYCHIATRIC: Appropriate mood and affect; insight and judgment normal. Medications and IVs Current Medications Medications (Trade) Dose Ordered Sig/Celestine Route Start Time Stop Time Status Last Admin (Lasix Inj) 20 mg ONCE PRN IV PUSH 06/12/16 14:15 06/12/16 23:55 (Tylenol) 650 mg Q4H PRN PO 06/12/16 16:45 (Lipitor) 10 mg HS PO 06/12/16 21:00 06/14/16 21:43 (Ferrous Sulfate) 325 mg BID PO 06/12/16 21:00 06/15/16 10:02 ([place] 5-325 Mg) 1 tab Q4H PRN PO 06/12/16 16:45 06/15/16 11:03 (Toprol Xl) 100 mg DAILY PO 06/13/16 09:00 06/15/16 10:03 (NS Flush) 2 ml UNSCH PRN FLUSH 06/12/16 16:45 06/12/16 23:56 (NS Flush) 2 ml BID FLUSH 06/12/16 21:00 06/15/16 10:04 (Zofran Inj) 4 mg Q6H PRN IVP 06/12/16 16:45 (Milk Of Magnesia Liq) 30 ml Q12H PRN PO 06/12/16 16:45 (Narcan Inj) 0.4 mg UNSCH PRN IV 06/12/16 16:45 (Ativan) 0.5 mg Q8H PRN PO 06/12/16 17:00 (Catapres) 0.1 mg Q6H PRN PO 06/12/16 17:00 06/13/16 04:16 (Vasotec Inj) 2.5 mg Q6H PRN IV PUSH 06/12/16 17:00 (Lasix Inj) 40 mg DAILY IV PUSH 06/13/16 09:00 06/14/16 08:44 Hydralazine HCl 20 mg 20 mg Q4H PRN IV PUSH 06/12/16 17:00 (Zosyn 3.375 Gm Premix) 50 ml @ 100 mls/hr Q6H IV 06/12/16 18:00 06/15/16 11:04 (Protonix Inj) 40 mg Q24H IV PUSH 06/12/16 17:00 06/14/16 16:44 (D50w (Vial) Inj) 25 ml UNSCH PRN IV PUSH 06/12/16 17:00 (Glucagon Inj) 1 mg UNSCH PRN OTHER 06/12/16 17:00 (Xalatan 0.005% Opth Soln) 1 drop HS EACH EYE 06/12/16 21:00 06/14/16 21:43 Patient Own Medication PT OWN MED: SIMBRI... BID EACH EYE 06/12/16 21:00 Hold (D5-1/2 NS + KCl 40 Meq Inj) 1,000 ml @ 42 mls/hr [id number] IV 06/14/16 12:15 06/15/16 10:06 A/P Assessment and Plan ABDOMINAL FLUID COLLECTION GIB. TRANSFUSED PERFORATED BOWEL S/P COLONOSCOPY FOR GIB AND BLOOD LOSS ANEMIA MAY 23. OPEN REPAIR MAY 24 WITH NEW OSTOMY PLACEMENT. SEVERE SEPSIS FLUID OVERLOAD VS HCAP LACTIC ACIDOSIS KATRHINE. RENAL US SHOWED MRD. DM HTN PAD R BKA CVA. Mitral valve replacement, on coumadin therapy. Coronary artery disease with a history of CABG PLAN: NPO IVF IV ABX INSULIN HOLD COUMADIN SURGICAL CONSULT ID CONSULT WOUND CONSULT Victor Manuel Jones MD Jun 15, 2016 12:52
[2016-06-15] MEDS ORDERED: POTASSIUM CHLORIDE 20 MEQ CONTROLLED RELEASE TAB PO ONE (13:00)
--- NOTE | 2016-06-15 14:40 | HHI.IDPN ---
Subjective Subjective Remarks Notes reviewed Temps ok Hgb stable, got 2 units 06/12 Clinically stable from ID standpoint Abdominal exam fairly benigh Fluid collections, ?hematoma, clinically not acting infected BC negative Antibiotics Zosyn Lines PIV Past Medical History Sacral decubitus DM HTN Stroke x2 CABG PVD Past Surgical History Right AKA Previous diverting colostomy Recent expiratory laparotomy, proctosigmoidectomy, Toshia's pouch and resection and revision of his colostomy Allergies: Coded Allergies: Latex (Verified Allergy, Severe, Rash, 06/12/16) *MDRO Multi-Drug Resistant Organism (Verified Adverse Reaction, Unknown, MRSA, ESBL, MDR Acinetobacter, 06/13/16) 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 Vital Signs Date Time Temp Pulse Resp B/P Pulse Ox O2 Delivery O2 Flow Rate FiO2 06/15/16 10:22 98.3 90 18 146/85 97 06/15/16 08:00 90 06/15/16 04:27 97.8 79 18 135/88 98 06/14/16 23:00 91 06/14/16 20:04 96.8 89 22 143/87 100 06/14/16 20:00 91 06/14/16 19:17 98 06/14/16 16:05 96.4 86 18 136/76 99 06/14/16 15:00 81 06/14/16 06/14/16 06/15/16 15:00 23:00 07:00 Intake Total 820 ml 240 ml Output Total 750 ml 600 ml Balance 70 ml -360 ml Intake Oral 360 ml 240 ml IV Total 460 ml Output Urine Total 400 ml 400 ml Stool Total 350 ml 200 ml . Laboratory Tests Test 06/14/16 06/15/16 07:49 08:52 White Blood Count 9.2 TH/MM3 8.8 TH/MM3 Red Blood Count 3.13 MIL/MM3 3.67 MIL/MM3 Hemoglobin 8.9 GM/DL 9.9 GM/DL Hematocrit 25.5 % 29.6 % Mean Corpuscular Volume 81.5 FL 80.8 FL Mean Corpuscular Hemoglobin 28.3 PG 27.1 PG Mean Corpuscular Hemoglobin 34.7 % 33.5 % Concent Red Cell Distribution Width 17.8 % 17.8 % Platelet Count 464 TH/MM3 487 TH/MM3 Mean Platelet Volume 7.0 FL 6.9 FL Neutrophils (%) (Auto) 73.8 % 70.6 % Lymphocytes (%) (Auto) 15.8 % 17.2 % Monocytes (%) (Auto) 6.0 % 6.6 % Eosinophils (%) (Auto) 4.1 % 4.4 % Basophils (%) (Auto) 0.3 % 1.2 % Neutrophils # (Auto) 6.8 TH/MM3 6.2 TH/MM3 Lymphocytes # (Auto) 1.4 TH/MM3 1.5 TH/MM3 Monocytes # (Auto) 0.6 TH/MM3 0.6 TH/MM3 Eosinophils # (Auto) 0.4 TH/MM3 0.4 TH/MM3 Basophils # (Auto) 0.0 TH/MM3 0.1 TH/MM3 CBC Comment DIFF FINAL DIFF FINAL Differential Comment Laboratory Tests Test 06/14/16 06/15/16 07:49 08:52 Sodium Level 140 MEQ/L 137 MEQ/L Potassium Level 3.2 MEQ/L 3.4 MEQ/L Chloride Level 108 MEQ/L 104 MEQ/L Carbon Dioxide Level 22.1 MEQ/L 25.2 MEQ/L Anion Gap 10 MEQ/L 8 MEQ/L Blood Urea Nitrogen 14 MG/DL 10 MG/DL Creatinine 1.24 MG/DL 1.16 MG/DL Estimat Glomerular Filtration 59 ML/MIN 64 ML/MIN Rate Random Glucose 200 MG/DL 204 MG/DL Calcium Level 8.4 MG/DL 8.6 MG/DL Magnesium Level 1.7 MG/DL Imaging Abdomen/Pelvis CT 06/12/16 1148 Signed Impressions: Service Date/Time: Sunday, June 12, 2016 13:19 - CONCLUSION: 1. The patient has had a colonic anastomosis in the mid pelvis. There is a circumferential area of fluid and soft-tissue density surrounding the area. It could be resolving hematoma or conceivably an abscess; measurements given above. I do not see any free intraperitoneal air. I believe the previous colostomy has been taken down, although there is a large defect in the anterior abdominal wall remaining. 2. Solid organs of the abdomen are unremarkable. Howard Fernandes MD Physical Exam GENERAL: awake and alert, NAD SKIN: Warm and dry, no generalized rash HEENT: Pupils equal round and reactive. No scleral icterus. Moist oral mucosa. NECK: Supple, nontender, no meningeal signs. CARDIOVASCULAR: Regular rate and rhythm without murmurs, gallops, or rubs. RESPIRATORY: Clear to auscultation. Breath sounds equal bilaterally. No wheezes , rales, or rhonchi. GASTROINTESTINAL: Abdomen soft, with mild diffuse tenderness, nondistended. Bowel sounds are present and normoactive. Has a midline incision, and there are 2 open areas with packing, with no evidence of infection. Colostomy with good output. Below the colostomy is an open wound which stable, and not infected. MUSCULOSKELETAL: Extremities without clubbing, cyanosis, or edema. No calf tenderness. NEUROLOGICAL: Awake and alert. Cranial nerves II through XII intact. Good strength both UE PSYCH: Calm and cooperative BACK: Has sacral decubitus, with some slough, but no purulence or erythema noted Assessment & Plan Remarks IMPRESSION GI Bleed, he has had problem with previous GIB Fluid collections in abdomen, possibly seroma, hematoma Recent explor lap for perforated rectosigmoid 05/24/15 Renal insufficiency Sacral decubitus, does not look infected RECOMMENDATION Stop Zosyn Monitor progress Monitor off Abx Clinically stable from ID standpoint Latanya Das MD Jun 15, 2016 14:40
[2016-06-15] MEDS: PANTOPRAZOLE SODIUM 40 MG VIAL IV PUSH SCH (16:32)
[2016-06-15] MEDS: LATANOPROST 0.005% OPHT SOLN 2.5 ML BTL EACH EYE SCH (20:20)
[2016-06-15] MEDS: ATORVASTATIN 10 MG TAB PO SCH (20:20)
--- NOTE | 2016-06-15 23:01 | HHI.PR ---
Subjective Remarks C/R Surg afebrile, VSS c/o min rectal disch/BRB stoma funct Objective - Vital Signs Date Time Temp Pulse Resp B/P Pulse Ox O2 Delivery O2 Flow Rate FiO2 06/15/16 21:15 97.6 76 20 192/98 98 06/14/16 06:55 21 06/12/16 21:30 Room Air Result Diagram: 06/15/16 0852 06/15/16 0852 Objective Remarks PE alert Abd - soft, stoma funct, wound better, staple dc'd A/P Assessment and Plan Imp: watch H/H -stable hold coumadin - keep INR 2 procto if more bleeding dc plans Helder Fuller MD Jun 15, 2016 23:01
[2016-06-16] VITALS (8 sets, daily range): BP systolic 158–190; BP diastolic 84–100; PULSE 65–92; RESP 18–20; TEMP 97.6–98; O2SAT 96–100
[2016-06-16] MEDS: INSULIN ASPART SUPPLEMENTAL SCALE SQ SCH ×4 (06:00→22:52)
[2016-06-16] MEDS: METOPROLOL SUCCINATE 50 MG EXTENDED RELEASE TAB PO SCH (11:58)
[2016-06-16] MEDS: FERROUS SULFATE 325 MG (65 MG ELEMENTAL IRON) TAB PO SCH ×2 (11:58→22:52)
[2016-06-16] MEDS: FUROSEMIDE 40 MG/4 ML VIAL IV PUSH SCH (12:00)
[2016-06-16] MEDS: SODIUM CHLORIDE 0.9% FLUSH 5 ML FLUSH FLUSH SCH ×2 (12:00→22:53)
[2016-06-16] MEDS: ACETAMINOPHEN/HYDROcodone 325 MG/5 MG TAB PO PRN ×2 (12:06→22:56)
--- NOTE | 2016-06-16 12:44 | HHI.PR ---
Subjective Remarks 1 episode of BRB from rectum. No clots. Discussed with RNs. Does not sound like a large amount. Objective Vital Signs Date Time Temp Pulse Resp B/P Pulse Ox O2 Delivery O2 Flow Rate FiO2 06/16/16 11:04 98.0 92 18 179/100 98 06/16/16 07:57 98.0 89 18 176/96 96 06/16/16 03:49 97.6 65 20 190/90 98 06/15/16 23:38 97.6 78 20 188/95 99 06/15/16 21:15 97.6 76 20 192/98 98 06/15/16 20:00 78 06/15/16 19:08 80 18 157/80 96 I/O 06/15/16 06/15/16 06/15/16 06/16/16 06/16/16 06/16/16 07:00 15:00 23:00 07:00 15:00 23:00 Intake Total 530 ml Output Total 745 ml 900 ml Balance -215 ml -900 ml IV Total 530 ml Output Urine Total 700 ml 900 ml Stool Total 45 ml # Bowel Movements 2 Result Diagram: 06/15/16 0852 06/15/16 0852 Objective Remarks Abd: All wounds clean.Dressings changed by me. No need for more than clean with peroxide and pack with wet to dry 4x4s. Assessment and Plan Assessment and Plan Still some rectal blood Plan: Dressing orders written. No need for wound care nurse. Small simple wounds will heal with packing and nutrition. If rectal bleeding is stopped or minimal, pt can return to [place]. Check CBC today and in AM Vazquez Dominguez MD Jun 16, 2016 12:44
--- NOTE | 2016-06-16 13:38 | HHI.FPPN ---
Subjective Remarks d/w CAREGIVER, SHE REPORTS LARGE BRBPR TODAY D/W RN Objective Vitals Vital Signs Date Time Temp Pulse Resp B/P Pulse Ox O2 Delivery O2 Flow Rate FiO2 06/16/16 11:04 98.0 92 18 179/100 98 06/16/16 07:57 98.0 89 18 176/96 96 06/16/16 03:49 97.6 65 20 190/90 98 06/15/16 23:38 97.6 78 20 188/95 99 06/15/16 21:15 97.6 76 20 192/98 98 06/15/16 20:00 78 06/15/16 19:08 80 18 157/80 96 I/O 06/15/16 06/15/16 06/15/16 06/16/16 06/16/16 06/16/16 07:00 15:00 23:00 07:00 15:00 23:00 Intake Total 530 ml Output Total 745 ml 900 ml Balance -215 ml -900 ml IV Total 530 ml Output Urine Total 700 ml 900 ml Stool Total 45 ml # Bowel Movements 2 Result Diagram: 06/15/16 0852 06/15/16 0852 Objective Remarks GENERAL: SKIN: Warm and dry. HEAD: Atraumatic. Normocephalic. EYES: Pupils equal and round. No scleral icterus. No injection or drainage. ENT: No nasal bleeding or discharge. Mucous membranes pink and moist. NECK: Trachea midline. No JVD. CARDIOVASCULAR: Regular rate and rhythm. RESPIRATORY: No accessory muscle use. Clear to auscultation. Breath sounds equal bilaterally. GASTROINTESTINAL: Abdomen soft, non-tender, nondistended. Hepatic and splenic margins not palpable. MUSCULOSKELETAL: Extremities without clubbing, cyanosis, or edema. No obvious deformities. NEUROLOGICAL: Awake and alert. No obvious cranial nerve deficits. Motor grossly within normal limits. 1 out of 5 muscle strength in the arms and legs. Normal speech. PSYCHIATRIC: Appropriate mood and affect; insight and judgment normal. Medications and IVs Current Medications Medications (Trade) Dose Ordered Sig/Celestine Route Start Time Stop Time Status Last Admin (Lasix Inj) 20 mg ONCE PRN IV PUSH 06/12/16 14:15 06/12/16 23:55 (Tylenol) 650 mg Q4H PRN PO 06/12/16 16:45 (Lipitor) 10 mg HS PO 06/12/16 21:00 06/15/16 20:20 (Ferrous Sulfate) 325 mg BID PO 06/12/16 21:00 06/16/16 11:58 ([place] 5-325 Mg) 1 tab Q4H PRN PO 06/12/16 16:45 06/16/16 12:06 (Toprol Xl) 100 mg DAILY PO 06/13/16 09:00 06/16/16 11:58 (NS Flush) 2 ml UNSCH PRN FLUSH 06/12/16 16:45 06/12/16 23:56 (NS Flush) 2 ml BID FLUSH 06/12/16 21:00 06/16/16 12:00 (Zofran Inj) 4 mg Q6H PRN IVP 06/12/16 16:45 (Milk Of Magnesia Liq) 30 ml Q12H PRN PO 06/12/16 16:45 (Narcan Inj) 0.4 mg UNSCH PRN IV 06/12/16 16:45 (Ativan) 0.5 mg Q8H PRN PO 06/12/16 17:00 (Catapres) 0.1 mg Q6H PRN PO 06/12/16 17:00 06/13/16 04:16 (Vasotec Inj) 2.5 mg Q6H PRN IV PUSH 06/12/16 17:00 06/15/16 23:51 (Lasix Inj) 40 mg DAILY IV PUSH 06/13/16 09:00 06/16/16 12:00 (Apresoline Inj) 20 mg Q4H PRN IV PUSH 06/12/16 17:00 (Protonix Inj) 40 mg Q24H IV PUSH 06/12/16 17:00 06/15/16 16:32 (D50w (Vial) Inj) 25 ml UNSCH PRN IV PUSH 06/12/16 17:00 (Glucagon Inj) 1 mg UNSCH PRN OTHER 06/12/16 17:00 (Xalatan 0.005% Opth Soln) 1 drop HS EACH EYE 06/12/16 21:00 06/15/16 20:20 Patient Own Medication PT OWN MED: SIMBRI... BID EACH EYE 06/12/16 21:00 Hold (D5-1 NS + KCl 40 Meq Inj) 1,000 ml @ 42 mls/hr [id number] IV 06/14/16 12:15 06/15/16 10:06 A/P Assessment and Plan ABDOMINAL FLUID COLLECTION GIB. TRANSFUSED PERFORATED BOWEL S/P COLONOSCOPY FOR GIB AND BLOOD LOSS ANEMIA MAY 23. OPEN REPAIR MAY 24 WITH NEW OSTOMY PLACEMENT. SEVERE SEPSIS FLUID OVERLOAD VS HCAP LACTIC ACIDOSIS KATHRINE. RENAL US SHOWED MRD. DM HTN PAD R BKA CVA. Mitral valve replacement, on coumadin therapy. Coronary artery disease with a history of CABG PLAN: IVF OFF IV ABX INSULIN HOLD COUMADIN SURGICAL CONSULT ID CONSULT WOUND [id number] Victor Manuel Jones MD Jun 16, 2016 13:38 Victor Manuel Jones MD Jun 16, 2016 13:38
[2016-06-16 14:19] LABS: AUTOMATED NEUTROPHIL # 5.9 TH/MM3 (1.8-7.7); BASOPHIL # 0.1 TH/MM3 (0-0.2); BASOPHIL % 0.7 % (0.0-2.0); EOSINOPHIL # 0.3 TH/MM3 (0-0.4); EOSINOPHIL % 4.1 % (0.0-4.0); HEMATOCRIT 30.2 % (39.0-51.0); HEMO FLAGS DIFF FINAL; LYMPH % 21.5 % (9.0-44.0); LYMPHOCYTE # 1.8 TH/MM3 (1.0-4.8); MEAN CELL VOLUME 81.4 FL (80.0-100.0); MEAN CORPUSCULAR HEMOGLOBIN 26.9 PG (27.0-34.0); MONO % 5.7 % (0.0-8.0); PLATELET COUNT 441 TH/MM3 (150-450); RED BLOOD COUNT 3.71 MIL/MM3 (4.50-5.90); RED CELL DISTRIBUTION WIDTH 17.5 % (11.6-17.2); WHITE BLOOD COUNT 8.6 TH/MM3 (4.0-11.0)
[2016-06-16] MEDS: D5-1/2 NS + KCL 40 MEQ INJ 1,000 ML IV SCH (18:35)
[2016-06-16] MEDS: PANTOPRAZOLE SODIUM 40 MG VIAL IV PUSH SCH (18:35)
[2016-06-16] MEDS: ATORVASTATIN 10 MG TAB PO SCH (22:51)
[2016-06-16] MEDS: LATANOPROST 0.005% OPHT SOLN 2.5 ML BTL EACH EYE SCH (22:52)
[2016-06-17] VITALS: BP 177/87; PULSE 81; RESP 18; TEMP 98.4; O2SAT 97
[2016-06-17] MEDS: ACETAMINOPHEN/HYDROcodone 325 MG/5 MG TAB PO PRN ×2 (04:19→08:34)
[2016-06-17 04:48] VITALS: BP 158/90; PULSE 72; RESP 18; TEMP 97.3; O2SAT 100
[2016-06-17 05:00] VITALS: BP 138/90
[2016-06-17] MEDS: INSULIN ASPART SUPPLEMENTAL SCALE SQ SCH ×3 (06:23→16:00)
[2016-06-17 08:00] VITALS: BP_SYST 180; BP_SYST 191; BP_DIAS 90; BP_DIAS 92; PULSE 73; RESP 16; TEMP 98; O2SAT 98
[2016-06-17 08:10] VITALS: PULSE 69
[2016-06-17] MEDS: FUROSEMIDE 40 MG/4 ML VIAL IV PUSH SCH ×2 (08:28→08:36)
[2016-06-17] MEDS: FERROUS SULFATE 325 MG (65 MG ELEMENTAL IRON) TAB PO SCH (08:28)
[2016-06-17] MEDS: METOPROLOL SUCCINATE 50 MG EXTENDED RELEASE TAB PO SCH (08:28)
[2016-06-17] MEDS: SODIUM CHLORIDE 0.9% FLUSH 5 ML FLUSH FLUSH SCH (08:29)
--- NOTE | 2016-06-17 09:22 | HHI.PR ---
Subjective Remarks No further bleeding. Discussed wound care and showed RNs in ER yesterday how to dress wounds. Also wrote orders for wound dressing changes Q 12hrs....Not done Likewise asked them to change colostomy appliance yesterday as it was coming off. Not changed. Present appliance dated 06/12/16..... D/W RNs again today. Objective Vital Signs Date Time Temp Pulse Resp B/P Pulse Ox O2 Delivery O2 Flow Rate FiO2 06/17/16 08:10 69 06/17/16 05:00 138/90 06/17/16 04:48 97.3 72 18 158/90 100 06/17/16 00:00 98.4 81 18 177/87 97 06/16/16 23:00 85 06/16/16 20:00 78 06/16/16 19:23 98.0 88 20 158/84 100 06/16/16 16:02 97.9 85 18 179/95 98 06/16/16 11:04 98.0 92 18 179/100 98 I/O 06/16/16 06/16/16 06/16/16 06/17/16 06/17/16 06/17/16 07:00 15:00 23:00 07:00 15:00 23:00 Intake Total 300 ml Output Total 900 ml 650 ml Balance -900 ml -350 ml Intake Oral 300 ml Output Urine Total 900 ml 650 ml # Bowel Movements 0 Result Diagram: 06/16/16 1350 06/15/16 0852 Objective Remarks Abd: All wounds clean. No need for more than clean with peroxide and pack with wet to dry 4x4s. Dressing not changed as ordered Assessment and Plan Assessment and Plan No rectal bleeding. Pt diverted Plan: Dressing orders written. No need for wound care nurse. Small simple wounds will heal with packing and nutrition. Wounds not redressed since yesterday. Stoma appliance not changed as ordered. Rectal bleeding is stopped or minimal, consider restrting anticoagulation as needed. H&H stable since blood. Baseline from prior D/C Vazquez Dominguez MD Jun 17, 2016 09:22
[2016-06-17 09:33] LABS: AUTOMATED NEUTROPHIL # 6.1 TH/MM3 (1.8-7.7); BASOPHIL # 0.1 TH/MM3 (0-0.2); BASOPHIL % 0.7 % (0.0-2.0); EOSINOPHIL # 0.5 TH/MM3 (0-0.4); EOSINOPHIL % 5.5 % (0.0-4.0); HEMATOCRIT 28.9 % (39.0-51.0); HEMO FLAGS DIFF FINAL; LYMPH % 23.8 % (9.0-44.0); LYMPHOCYTE # 2.3 TH/MM3 (1.0-4.8); MEAN CELL VOLUME 83.3 FL (80.0-100.0); MEAN CORPUSCULAR HEMOGLOBIN 28.2 PG (27.0-34.0); MEAN CORPUSCULAR HGB CONC 33.8 % (32.0-36.0); MONO % 6.3 % (0.0-8.0); NEUT % 63.7 % (16.0-70.0); PLATELET COUNT 405 TH/MM3 (150-450); RED BLOOD COUNT 3.47 MIL/MM3 (4.50-5.90); RED CELL DISTRIBUTION WIDTH 17.8 % (11.6-17.2); WHITE BLOOD COUNT 9.6 TH/MM3 (4.0-11.0)
[2016-06-17 10:01] LABS: BICARBONATE 26.7 MEQ/L (21.0-32.0); POTASSIUM 3.9 MEQ/L (3.5-5.1)
--- NOTE | 2016-06-17 10:33 | HHI.DS ---
Discharge Summary Admission Date Jun 14, 2016 at 11:33 Admitting Diagnosis GI bleed, symptomatic anemia, possible abdominal abscess (1) Colostomy status (2) SIRS (systemic inflammatory response syndrome) (3) Symptomatic anemia (4) Perforated bowel (5) KATHRINE (acute kidney injury) (6) GI bleed (7) Abdominal pain (8) Leukocytosis (9) Anemia Brief History 60 y CM. RECENT HOSPITALIZATION W BOWEL PERF. PT WENT TO [facility]. FOUND WITH HGB 6.7 AND WBC 15 K. I SET HIM UP FOR OUTPATIENT TRANSFUSION YESTERDAY. UNFORTUNATELY, HE HAD MASSIVE GIB AT THE SNF. I ORDERED TRANSFER TO ER AND CANCEL OUTPATIENT TRANSFUSION. PT SEEN IN ER. TRANSFUSING. HAS HAD ANOTHER GIB IN ER TODAY. CONFERENCED WITH [employer]UPAL [employer] DEVELOPER, SHE IS CONCERNED THAT HE LOOKS SO PALE AND IS VERY WEAK. PT C/O ABDOMINAL PAIN. D/W WOUND NURSE LARGE SACRAL WOUND AND ABDOMINAL INCISIONS AND WOUNDS. CBC/BMP: 06/17/16 0841 06/17/16 0841 Significant Findings Laboratory Tests Test 06/15/16 06/16/16 06/17/16 08:52 13:50 08:41 Red Blood Count 3.67 MIL/MM3 3.71 MIL/MM3 3.47 MIL/MM3 (4.50-5.90) (4.50-5.90) (4.50-5.90) Hemoglobin 9.9 GM/DL 10.0 GM/DL 9.8 GM/DL (13.0-17.0) (13.0-17.0) (13.0-17.0) Hematocrit 29.6 % 30.2 % 28.9 % (39.0-51.0) (39.0-51.0) (39.0-51.0) Red Cell Distribution Width 17.8 % 17.5 % 17.8 % (11.6-17.2) (11.6-17.2) (11.6-17.2) Platelet Count 487 TH/MM3 (150-450) Mean Platelet Volume 6.9 FL (7.0-11.0) Neutrophils (%) (Auto) 70.6 % (16.0-70.0) Eosinophils (%) (Auto) 4.4 % (0.0-4.0) 4.1 % (0.0-4.0) 5.5 % (0.0-4.0) Potassium Level 3.4 MEQ/L (3.5-5.1) Estimat Glomerular Filtration 64 ML/MIN (>89) 69 ML/MIN (>89) Rate Random Glucose 204 MG/DL 175 MG/DL (74-106) (74-106) Mean Corpuscular Hemoglobin 26.9 PG (27.0-34.0) Eosinophils # (Auto) 0.5 TH/MM3 (0-0.4) PE at Discharge GENERAL: SKIN: Warm and dry. HEAD: Atraumatic. Normocephalic. EYES: Pupils equal and round. No scleral icterus. No injection or drainage. ENT: No nasal bleeding or discharge. Mucous membranes pink and moist. NECK: Trachea midline. No JVD. CARDIOVASCULAR: Regular rate and rhythm. RESPIRATORY: No accessory muscle use. Clear to auscultation. Breath sounds equal bilaterally. GASTROINTESTINAL: Abdomen soft, non-tender, nondistended. Hepatic and splenic margins not palpable. MUSCULOSKELETAL: Extremities without clubbing, cyanosis, or edema. No obvious deformities. NEUROLOGICAL: Awake and alert. No obvious cranial nerve deficits. Motor grossly within normal limits. Five out of 5 muscle strength in the arms and legs. Normal speech. PSYCHIATRIC: Appropriate mood and affect; insight and judgment normal. Hospital Course 60 Y CM, ADMIT WITH - ABDOMINAL FLUID COLLECTION GIB. TRANSFUSED PERFORATED BOWEL S/P COLONOSCOPY FOR GIB AND BLOOD LOSS ANEMIA MAY 23. OPEN REPAIR MAY 24 WITH NEW OSTOMY PLACEMENT. SEVERE SEPSIS FLUID OVERLOAD VS HCAP LACTIC ACIDOSIS KATHRINE. RENAL US SHOWED MRD. DM HTN PAD R BKA CVA. Mitral valve replacement, on coumadin therapy. Coronary artery disease with a history of CABG HOSPITAL COURSE AND PLAN WAS TO - IVF OFF IV ABX INSULIN HOLD COUMADIN SURGICAL CONSULT ID CONSULT WOUND CONSULT3 Discharge Instructions Follow up Referrals: Colorectal Surgery - 2-3 Days with Vazquez Dominguez MD Continued Medications: Acetaminophen (Mapap) 325 Mg Tab 650 MG PO Q4HR PRN PAIN/TEMP>100 Ref 0 TAB Atorvastatin (Atorvastatin) 10 Mg Tab 10 MG PO HS Cholesterol Management #30 Ref 0 TAB Brinzolamide-Brimonidine Opth Drops (Simbrinza Opth Drops) 1-0.2% Susp 1 DROP EACH EYE BID Intraocular Pressure #1 Ref 0 BOTTLE Cilostazol (Cilostazol) 50 Mg Tab 50 MG PO BID INTERMITTENT CLAUDICATION Ref 0 TAB Collagenase Topical (Santyl Topical) 250 Unit/Gm Oint 1 APPLIC TOPICAL 1 X DAILY & PRN SOIL Wound Management #90 Ref 0 GM Docusate Sodium (Colace) 100 Mg Cap 100 MG PO TID Constipation #90 Ref 0 CAP Ferrous Sulfate (Ferrous Sulfate) 325 Mg Tab 325 MG PO BID Nutritional Supplement #30 Ref 0 TAB Hydrocodone-Acetaminophen ([place]) 5-325 mg Tab 1 TAB PO Q4H PRN PAIN #93 Ref 0 TAB (This prescription has been renewed) Insulin Glargine Inj (Lantus Inj) 1,000 Unit/10 Ml Vial 35 UNITS SQ HS Blood Sugar Management Ref 0 VIAL Insulin Lispro (Human) Inj (Humalog Inj) 1,000 Unit/10 Ml Vial 2-10 UNITS SQ ACHS Max dose at bedtime:( )units; sugars < 70,(0)units; sugars 150-199,(2)units; sugars 200-249,(3)units; sugars 250-299,(5)units; sugars 300- 349,(7)units; sugars 350 -400,(10)units. Blood Sugar Management #1 Ref 0 VIAL Metoprolol Succinate ER 24 HR (Toprol XL) 100 Mg Tab 100 MG PO DAILY htn #30 Ref 11 TAB Multiple Vitamins W/ Minerals (Thera-M) 1 Tab 1 TAB PO DAILY Nutritional Supplement Ref 0 TAB Omeprazole (Prilosec) 20 Mg Cap 20 MG PO DAILY #30 Ref 0 CAP Travoprost Opth Drops (Travatan Z Opth Drops) 0.004 % Soln 1 DROP EACH EYE HS Glaucoma #1 Ref 0 BOTTLE Warfarin (Warfarin) 3 Mg Tab 3 MG PO DAILY@1600 Blood Clot Prevention #30 Ref 0 TAB Victor Manuel Jones MD Jun 17, 2016 10:33
[2016-06-17] MEDS ORDERED: NORC5TAB PO (10:36)
--- NOTE | 2016-06-17 10:38 | HHI.DCPOC ---
Discharge Care Plan Diagnosis: (1) Anemia (2) Leukocytosis (3) Abdominal pain (4) GI bleed (5) KATHRINE (acute kidney injury) (6) Perforated bowel (7) Symptomatic anemia Goals to Promote Your Health * To prevent worsening of your condition and complications * To maintain your health at the optimal level Directions to Meet Your Goals Take your medications as prescribed Follow your dietary instruction Follow activity as directed Keep your appointments as scheduled Take your immunizations and boosters as scheduled If your symptoms worsen call your PCP, if no PCP go to Urgent Care Center or Emergency Room Smoking is Dangerous to Your Health. Avoid second hand smoke Call the 24-hour hour crisis hotline for domestic abuse at Victor Manuel Jones MD Jun 17, 2016 10:38
[2016-06-17] MEDS: D5-1/2 NS + KCL 40 MEQ INJ 1,000 ML IV SCH (11:42)
[2016-06-17 12:00] VITALS: BP 179/89; PULSE 76; RESP 10; TEMP 97.9; O2SAT 97
== END 2016-06-17 16:41 | DRG 871 ==
LOC: NEPA 11:31 → INTOOBSV 14:08 → NEDA 14:08 → NEPHCDU 22:29 → OBSVTOIN 06-14 11:33 → N04B 06-16 23:13
PROVIDERS: ADMIT Family Medicine; ATTEND Family Medicine
PROC: 30233N1 Transfusion of Nonautologous Red Blood Cells into Peripheral Vein, Percutaneous Approach (ICD-10-PCS; principal; 2016-06-12)
DX: A41.9 Sepsis, unspecified organism (principal); J18.9 Pneumonia, unspecified organism; N17.9 Acute kidney failure, unspecified; E87.2 Acidosis; L89.159 Pressure ulcer of sacral region, unspecified stage; R18.8 Other ascites; E87.70 Fluid overload, unspecified; K92.2 Gastrointestinal hemorrhage, unspecified; I10 Essential (primary) hypertension; D50.0 Iron deficiency anemia secondary to blood loss (chronic); E10.9 Type 1 diabetes mellitus without complications; M19.90 Unspecified osteoarthritis, unspecified site; I73.9 Peripheral vascular disease, unspecified; R65.20 Severe sepsis without septic shock; F10.10 Alcohol abuse, uncomplicated; I25.10 Atherosclerotic heart disease of native coronary artery without angina pectoris; F12.90 Cannabis use, unspecified, uncomplicated; Z79.01 Long term (current) use of anticoagulants; Z79.4 Long term (current) use of insulin; Z86.14 Personal history of Methicillin resistant Staphylococcus aureus infection; Z86.73 Personal history of transient ischemic attack (TIA), and cerebral infarction without residual deficits; Z87.891 Personal history of nicotine dependence; Z89.611 Acquired absence of right leg above knee; Z91.040 Latex allergy status; Z93.3 Colostomy status; Z95.1 Presence of aortocoronary bypass graft; Z95.2 Presence of prosthetic heart valve
CPT/HCPCS: 36430; 74177; 80048; 80053; 80202; 81001; 82948; 83605; 83690; 83735; 85025; 85610; 85730; 86850; 86900; 86901; 86920; 87040; 93005; C9113; J1815; J1940; J2543; J3370; J3480; J7040; J7042; J7050; P9016; Q9967

== ENCOUNTER 2016-08-28 00:32 | Inpatient (IN) | payer MEDICARE, OTHER ==
[~2016-08-28] VITALS: Ht 180.3 cm; Wt 84.0 kg
[2016-08-28] VITALS (10 sets, daily range): BP systolic 128–226; BP diastolic 75–111; PULSE 68–100; RESP 16–22; TEMP 98–98.8; O2SAT 95–100
[~2016-08-28 00:32] MED LIST changes: +COLA100C3 PO; +COLL30T TOPICAL; +FERR325T PO; +MAPA325T PO; +THERTAB17 PO; +WARF-58 PO
--- NOTE | 2016-08-28 01:53 | RADRPT ---
EXAM DATE/TIME: 08/28/2016 01:44 [facility] COMPARISON: CHEST SINGLE AP, May 24, 2016, 12:32. INDICATIONS : Shortness of breath. MEDICAL HISTORY : Hypertension. Hypercholesterolemia. Diabetes. SURGICAL HISTORY : CABG. Mitral valve replacement. ENCOUNTER: Initial ACUITY: 1 day PAIN SCORE: Non-responsive. LOCATION: Bilateral chest FINDINGS: A single view of the chest demonstrates the lungs to be symmetrically aerated without evidence of mas s, infiltrate or effusion. The cardiomediastinal contours are unremarkable. Osseous structures are intact. CONCLUSION: Normal examination. Numerous sternal wires and prosthetic heart valve. Minimal atelectasis left lung base. Howard Fernandes MD on August 28, 2016 at 1:51 Board Certified Radiologist. This report was verified electronically.
[2016-08-28 02:06] LABS: AUTOMATED NEUTROPHIL # 4.4 TH/MM3 (1.8-7.7); BASOPHIL # 0.1 TH/MM3 (0-0.2); BASOPHIL % 1.4 % (0.0-2.0); EOSINOPHIL # 0.3 TH/MM3 (0-0.4); EOSINOPHIL % 4.2 % (0.0-4.0); HEMATOCRIT 36.2 % (39.0-51.0); HEMO FLAGS DIFF FINAL; LYMPH % 31.6 % (9.0-44.0); LYMPHOCYTE # 2.5 TH/MM3 (1.0-4.8); MEAN CELL VOLUME 82.6 FL (80.0-100.0); MEAN CORPUSCULAR HEMOGLOBIN 26.8 PG (27.0-34.0); MEAN CORPUSCULAR HGB CONC 32.5 % (32.0-36.0); MONO % 7.3 % (0.0-8.0); NEUT % 55.5 % (16.0-70.0); PLATELET COUNT 253 TH/MM3 (150-450); RED BLOOD COUNT 4.39 MIL/MM3 (4.50-5.90)
--- NOTE | 2016-08-28 02:14 | PD ---
HPI Chief Complaint: Altered Mental Status Time Seen by Provider: 01:07 Travel History International Travel<30 days: No Contact w/Intl Traveler<30days: No Traveled to known affect area: No History of Present Illness HPI The patient is a 60 year old male who presents to the [facility] emergency department with a history of altered mentation/confusion that began at approximately 6 PM today according to his significant other/roommate at the bedside. The patient on arrival has difficulty providing any history as he does seem to be confused and picking at the monitoring devices, easily distracted. The patient reports to me that he was discharged from a halfway 2 days ago, however his significant other reports that he was discharged on month ago. She reports that he is going back into the halfway tomorrow due to weakness. She reports that today he's had urinary incontinence 3 which is new for him. He denies having any dysuria or urinary urgency. His significant other reports that earlier today he was yelling out for his brother and sister, however they currently reside in [place]. She denies him taking any new sedative medications. He is on Lortab for pain in his left lower extremity. She denies him drinking any alcohol or using any other drugs. The patient denies having any abdominal pain. He has had a diminished appetite today, however he has not had any vomiting or diarrhea. He does have a colostomy. He's had normal output of the colostomy and no blood in his stool. His significant other denies him having any focal weakness that is new. He does have a prior history of cerebrovascular accident approximately a year and a half ago. The patient's history is obtained from his significant other at the bedside as well as his electronic medical record. She reports that his primary care physician is Dr. Jones. [facility] Past Medical History Narrative Medical The patient's past medical history is significant for a recent bowel perforation status post colostomy, history of GI bleed with blood transfusion, history of having an abdominal abscess, history of anemia, history of diabetes mellitus, hypertension, peripheral arterial disease, prior history of a right [id number] amputation, cerebrovascular accident, history of a mitral valve replacement on Coumadin anticoagulation, history of coronary artery disease. Hx Anticoagulant Therapy: Yes Arthritis: Yes Asthma: Yes Autoimmune Disease: No Blood Disorders: No Anxiety: No Depression: No Heart Rhythm Problems: No Cancer: No Cardiac Catheterization: No Cardiovascular Problems: Yes (HTN) High Cholesterol: Yes Chemotherapy: No Chest Pain: No Congestive Heart Failure: No COPD: No Cerebrovascular Accident: Yes (2014) Diabetes: Yes Patient Takes Glucophage: No Diminished Hearing: Yes (L ear) Endocrine: Yes Gastrointestinal Disorders: Yes (colostomy bag. ) GERD: Yes Genitourinary: Yes Headaches: No Hiatal Hernia: No Heparin Induced Thrombocytopen: No Hypertension: Yes Immune Disorder: No Implanted Vascular Access Dvce: No Kidney Stones: No Musculoskeletal: Yes (LT SIDE WEAKNESS WITH FOOT DROP ON LT) Neurologic: Yes Psychiatric: No Reproductive: No Respiratory: No Immunizations Current: No Migraines: No Radiation Therapy: No Renal Failure: No Seizures: No Sickle Cell Disease: No Sleep Apnea: No Thyroid Disease: No Triglycerides - High: Yes Ulcer: No Past Surgical History Narrative Surgical The patient has a past surgical history significant for coronary artery bypass grafting, mitral valve replacement, partial colectomy with colostomy placement related to a bowel perforation. Abdominal Surgery: Yes (ostomy) AICD: No Arteriovenous Shunt: No Cardiac Surgery: Yes (MITRAL VALVE REPLACED 05/2012) Coronary Artery Bypass Graft: Yes (06-10-2012) Ear Surgery: No Endocrine Surgery: No Eye Surgery: No Genitourinary Surgery: No Gynecologic Surgery: No Insulin Pump: No Joint Replacement: No Neurologic Surgery: No Oral Surgery: No Pacemaker: No Thoracic Surgery: Yes Valve Replacement: Yes (MVR 06-10-2012) Other Surgery: Yes Social History Alcohol Use: No Tobacco Use: No Substance Use: No Allergies-Medications (Allergen,Severity, Reaction): Coded Allergies: Latex (Verified Allergy, Severe, Rash, 06/12/16) *MDRO Multi-Drug Resistant Organism (Verified Adverse Reaction, Unknown, MRSA, ESBL, MDR Acinetobacter, 06/13/16) 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 Pseudomonas (buttock) - 12/04/12 ESBL (urine) - 09/19/12 VRE (buttock) - 08/18/12 Reported Meds & Prescriptions Reported Meds & Active Scripts Active [place] (Hydrocodone-Acetaminophen) 5-325 mg Tab 1 Tab PO Q4H PRN Toprol XL (Metoprolol Succinate) 100 Mg Tab 100 Mg PO DAILY Reported Santyl Topical (Collagenase) 250 Unit/Gm Oint 1 Applic TOPICAL 1 X DAILY & PRN SOIL Warfarin 3 Mg Tab 3 Mg PO DAILY@1600 Thera-M (Multiple Vitamins W/ Minerals) 1 Tab 1 Tab PO DAILY Ferrous Sulfate 325 Mg Tab 325 Mg PO BID Colace (Docusate Sodium) 100 Mg Cap 100 Mg PO TID Mapap (Acetaminophen) 325 Mg Tab 650 Mg PO Q4HR PRN Prilosec (Omeprazole) 20 Mg Cap 20 Mg PO DAILY Humalog Inj (Insulin Human Lispro) 1,000 Unit/10 Ml Vial 2-10 Units SQ ACHS Max dose at bedtime:( )units; sugars < 70,(0)units; sugars 150-199,(2)units; sugars 200-249,(3)units; sugars 250-299,(5)units; sugars 300-349,(7)units; sugars 350 -400,(10)units. Travatan Z Opth Drops (Travoprost) 0.004 % Soln 1 Drop EACH EYE HS Cilostazol 50 Mg Tab 50 Mg PO BID Simbrinza Opth Drops (Brinzolamide-Brimonidine Opth Drops) 1-0.2% Susp 1 Drop EACH EYE BID Atorvastatin (Atorvastatin Calcium) 10 Mg Tab 10 Mg PO HS Lantus Inj (Insulin Glargine) 1,000 Unit/10 Ml Vial 35 Units SQ HS Review of Systems Except as stated in HPI: all other systems reviewed are Neg General / Constitutional: No: Fever Eyes: No: Visual changes HENT: No: Headaches Cardiovascular: No: Chest Pain or Discomfort Respiratory: No: Shortness of Breath Gastrointestinal: Positive: Loss of Appetite, No: Nausea, Vomiting, Diarrhea, Abdominal Pain, Hematochezia, Changes in Bowel Habits Genitourinary: Positive: Incontinence, No: Urgency, Dysuria Musculoskeletal: No: Pain Skin: No Rash Neurologic: Positive: Weakness (generalized weakness), Change in Mentation, Incontinence, No: Focal Abnormalities, Slurred Speech, Paresthesia, Sensory Disturbance Psychiatric: No: Depression Endocrine: No: Polydipsia Hematologic/Lymphatic: No: Easy Bruising Physical Exam Narrative General: The patient is a well-developed well-nourished male in no acute distress, Head and Neck exam: Head is normocephalic atraumatic. Eyes: EOMI, pupils are equal round and reactive to light. Nose: Midline septum with pink mucous membranes Mouth: Dentition unremarkable. Moist mucus membranes. Posterior oropharynx is not erythematous. No tonsillar hypertrophy. Uvula midline. Airway patent. Neck: No palpable lymphadenopathy. No nuchal rigidity. No thyromegaly. Cardiovascular: Regular rate and rhythm without murmurs, gallops, or rubs. Lungs: Clear to auscultation bilaterally. No wheezes, rhonchi, or rales. Abdomen: Soft, without tenderness to palpation in all 4 quadrants of the abdomen. No guarding, rebound, or rigidity. Normal bowel sounds are audible. The patient has suprapubic prominence on palpation suspicious for urinary retention. No tenderness on palpation of McBurney's point. The patient has a colostomy that appears to be in good repair. No bloody stool in the ostomy bag. Extremities: No clubbing or cyanosis. The patient has trace to 1+ pitting edema the left lower extremity. The patient has a right below the knee amputation noted. Back: Patient has a decubitus ulcer which is further documented regarding size and depth by the nursing staff. Neurologic Exam: The patient has difficulty following commands for a formal neurologic examination. The patient has difficulty tracking with eyes movements due to being easily distracted. The patient has diminished strength with raising his eyebrow on the right side. The patient has no other visible facial asymmetry. The patient has strength that is 5 over 5 in bilateral upper and lower extremities. The patient has intact sensation over all dermatomes. Data Data Last Documented VS Vital Signs Date Time Temp Pulse Resp B/P Pulse Ox O2 Delivery O2 Flow Rate FiO2 08/28/16 01:15 Room Air 08/28/16 01:00 98.0 72 20 177/109 100 Orders Electrocardiogram (08/28/16:21) Complete Blood Count With Diff (08/28/16:21) Comprehensive Metabolic Panel (08/28/16:21) B-Type Natriuretic Peptide (08/28/16:21) Prothrombin Time / Inr (Pt) (08/28/16:21) Act Partial Throm Time (Ptt) (08/28/16:21) C-Reactive Protein (Crp) (08/28/16:21) Lipase (08/28/16:21) Urinalysis - C+S If Indicated (4/18/17 01:21) Cath For Specimen (08/28/16 01:21) Magnesium (Mg) (08/28/16 01:21) Ammonia (08/28/16 01:21) Chest, Single Ap (08/28/16 01:21) Ct Brain W/O Iv Contrast(Rout) (08/28/16 01:21) Iv Access Insert/Monitor (08/28/16 01:21) Ecg Monitoring (08/28/16 01:21) Oximetry (08/28/16 01:21) Drug Screen, Random Urine (08/28/16 01:21) Alcohol (Ethanol) (08/28/16 01:21) Urinary Catheter Insert/Apply (08/28/16 02:24) Urine Culture (08/28/16 01:50) Admit Order (Ed Use Only) (08/28/16 03:31) Vital Signs (Adult) Q4H (08/28/16 03:33) Activity Oob With Assistance (08/28/16 03:33) Heat Treating Operator / Telemetry .CONTINUOUS (08/28/16 03:33) Diet Heart Healthy (08/28/16 Breakfast) Sodium Chloride 0.9% Flush (Ns Flush) (08/28/16 03:45) Sodium Chloride 0.9% Flush (Ns Flush) (08/28/16 09:00) Basic Metabolic Panel (Bmp) (08/29/16 06:00) Complete Blood Count With Diff (08/29/16 06:00) Pt Request For Service (08/28/16 03:33) Case Management Consult (08/28/16 03:33) Heparin Inj (Heparin Inj) (08/28/16 04:00) Naloxone Inj (Narcan Inj) (08/28/16 03:45) Sodium Chlor 0.9% 1000 Ml Inj (Ns 1000 M (08/28/16 03:45) Ceftriaxone Inj (Rocephin Inj) (08/28/16 03:45) Labs Laboratory Tests Test 08/28/16 08/28/16 01:50 02:00 White Blood Count 8.0 TH/MM3 Red Blood Count 4.39 MIL/MM3 Hemoglobin 11.8 GM/DL Hematocrit 36.2 % Mean Corpuscular Volume 82.6 FL Mean Corpuscular Hemoglobin 26.8 PG Mean Corpuscular Hemoglobin 32.5 % Concent Red Cell Distribution Width 16.0 % Platelet Count 253 TH/MM3 Mean Platelet Volume 7.9 FL Neutrophils (%) (Auto) 55.5 % Lymphocytes (%) (Auto) 31.6 % Monocytes (%) (Auto) 7.3 % Eosinophils (%) (Auto) 4.2 % Basophils (%) (Auto) 1.4 % Neutrophils # (Auto) 4.4 TH/MM3 Lymphocytes # (Auto) 2.5 TH/MM3 Monocytes # (Auto) 0.6 TH/MM3 Eosinophils # (Auto) 0.3 TH/MM3 Basophils # (Auto) 0.1 TH/MM3 CBC Comment DIFF FINAL Differential Comment Prothrombin Time 16.6 SEC Prothromb Time International 1.5 RATIO Ratio Activated Partial 30.7 SEC Thromboplast Time Urine Color LIGHT-YELLOW Urine Turbidity HAZY Urine pH 7.0 Urine Specific [place] 1.010 Urine Protein 30 mg/dL Urine Glucose (UA) 70 mg/dL Urine Ketones NEG mg/dL Urine Occult Blood SMALL Urine Nitrite NEG Urine Bilirubin NEG Urine Urobilinogen LESS THAN 2.0 MG/DL Urine Leukocyte Esterase LARGE Urine RBC 6 /hpf Urine WBC /hpf Urine WBC Clumps FEW Urine Squamous Epithelial <1 /hpf Cells Urine Yeast (Budding) RARE Microscopic Urinalysis Comment CULTURE INDICATED Sodium Level 140 MEQ/L Potassium Level 4.2 MEQ/L Chloride Level 107 MEQ/L Carbon Dioxide Level 26.7 MEQ/L Anion Gap 6 MEQ/L Blood Urea Nitrogen 21 MG/DL Creatinine 1.38 MG/DL Estimat Glomerular Filtration 52 ML/MIN Rate Random Glucose 175 MG/DL Calcium Level 9.3 MG/DL Magnesium Level 1.9 MG/DL Total Bilirubin 0.3 MG/DL Aspartate Amino Transf 15 U/L (AST/SGOT) Alanine Aminotransferase 16 U/L (ALT/SGPT) Alkaline Phosphatase 82 U/L C-Reactive Protein 2.17 MG/DL B-Type Natriuretic Peptide 57 PG/ML Total Protein 8.2 GM/DL Albumin 3.4 GM/DL Lipase 322 U/L Urine Opiates Screen NEG Urine Barbiturates Screen NEG Urine Amphetamines Screen NEG Urine Benzodiazepines Screen NEG Urine Cocaine Screen NEG Urine Cannabinoids Screen NEG Ethyl Alcohol Level LESS THAN 3 MG/DL Ammonia 17 MCMOL/L [facility] Medical Decision Making Medical Screen Exam Complete: Yes Emergency Medical Condition: Yes Medical Record Reviewed: Yes Differential Diagnosis Last Impressions Head CT 08/28/16120 Signed Impressions: Service Date/Time: Sunday, August 28, 2016 02:13 - CONCLUSION: Normal examination. 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 Howard Fernandes MD Chest X-Ray 08/28/16120 Signed Impressions: Service Date/Time: Sunday, August 28, 2016 01:44 - CONCLUSION: Normal examination. Numerous sternal wires and prosthetic heart valve. Minimal atelectasis left lung base. Howard Fernandes MD Narrative Course During the course of the patients emergency department visit, the patients history, examination, and differential diagnosis were reviewed with the patient. The patient had IV access obtained and blood work sent for analysis. The patient was on a youth nutritional monitor with oximetry and blood pressure monitoring. An EKG was done on arrival. The patient's EKG reveals a sinus rhythm heart rate of 67, no acute ST segment elevation or depression, T waves are inverted in V1. QRS duration is 89 ms, QTc is 447 ms. The patient on examination was not able to urinate and had palpable suprapubic distention. A Rodriguez catheter was placed to gravity and the patient had bowel 600 mL of yellow urine consistent with retention. The patient was initially provided Rocephin 1 g IV after urinary tract infection was noted. The patients laboratory studies were reviewed and remarkable for a white count of 8, hemoglobin 11.8, platelets 253 with 4.2 eosinophils. CMP is remarkable for a BUN of 21, creatinine 1.38, glucose 175, C-reactive protein 2.17, BNP 57, ammonia level is 17, lipase 322, PT 16.6, INR 1.5, PTT 40.7, urinalysis shows 30 protein, 70 glucose, small occult blood, large leukocyte esterase, 6 RBCs, innumerable wbc's with few clumps, culture indicated. Urine drug screen is negative, alcohol level is less than 3. Radiology studies were reviewed and remarkable for a CT scan of the brain that shows no acute abnormality, old right basilar infarct noted. Chest x-ray shows no acute abnormality, minimal atelectasis in the left lung base. The patient will be admitted to the hospital for altered mental status, suspected be related to his urinary tract infection. A call was placed out to Dr. Jones service and he reportedly is on dictation, therefore the [facility] service is covering for him. The patients results were discussed with the patient, including the plan of care. I explained that further testing and/ or monitoring is indicated based on the patients history, examination, and/ or laboratory findings. Therefore, I recommended admission for additional evaluation. The patient expressed understanding and was agreeable with this plan. The patient was admitted to the hospital in stable condition and sent to a bed under the care of the [facility] service.. Physician Communication Physician Communication The patient's case was discussed with Dr. Son who did agree to admit the patient for further evaluation and treatment at this time. Diagnosis Primary Impression: Altered mental state Qualified Code: R41.0 - Delirium Additional Impressions: Urinary tract infection Qualified Code: N39.0 - Urinary tract infection without hematuria, site unspecified Urinary retention Admitting Information Admitting Physician Requests: Admit Lian Milan MD Aug 28, 2016 02:14
[2016-08-28 02:16] LABS: APTT (PATIENT) 30.7 SEC (24.3-30.1); INTERNATIONAL NORMALIZED RATIO 1.5 RATIO; PROTHROMBIN TIME - PATIENT 16.6 SEC (9.8-11.6)
--- NOTE | 2016-08-28 02:25 | RADRPT ---
EXAM DATE/TIME: 08/28/2016 02:13 [facility] COMPARISON: No previous studies available for comparison. INDICATIONS : Altered mental status. RADIATION DOSE: 48.64 CTDIvol (mGy) MEDICAL HISTORY : Hypertension. Cardiovascular disease Diabetes mellitus type 2. SURGICAL HISTORY : CABG Mitral valve replacement. Ostomy. ENCOUNTER: Initial ACUITY: 1 day PAIN SCALE: 0/10 LOCATION: cranial TECHNIQUE: Multiple contiguous axial images were obtained of the head. Using automated exposure control and adj ustment of the mA and/or kV according to patient size, radiation dose was kept as low as reasonably a chievable to obtain optimal diagnostic quality images. FINDINGS: CEREBRUM: The ventricles are normal for age. No evidence of midline shift, mass lesion, hemorrhage or acute in farction. Old infarct in the right basal ganglia. No extra-axial fluid collections are seen. POSTERIOR FOSSA: The cerebellum and brainstem are intact. The 4th ventricle is midline. The cerebellopontine angle i s unremarkable. EXTRACRANIAL: The visualized portion of the orbits is intact. SKULL: The calvaria is intact. No evidence of skull fracture. CONCLUSION: Normal examination. 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 Howard Fernandes MD on August 28, 2016 at 2:23 Board Certified Radiologist. This report was verified electronically.
[2016-08-28 02:31] LABS: BLOOD, URINE SMALL (NEG); COMMENT (UR) CULTURE INDICATED; CULTURE IF INDICATED CULTURE INDICATED; GLUCOSE,URINE 70 mg/dL (NEG); KETONE, URINE NEG (NEG); NITRITE,URINE NEG (NEG); SQUAMOUS EPITHELIAL CELL URINE <1 /hpf (0-5); URINE COLOR LIGHT-YELLOW (YELLW/STRAW)
[2016-08-28 02:46] LABS: AMPHETAMINE, URINE NEG (NEG); BARBITURATES, URINE NEG (NEG); COCAINE, URINE NEG (NEG)
[2016-08-28 02:54] LABS: ALKALINE PHOSPHATASE 82 U/L (45-117); ALT (GPT) 16 U/L (12-78); TOTAL BILIRUBIN ADULT 0.3 MG/DL (0.2-1.0)
[2016-08-28 02:56] LABS: ANION GAP 6 MEQ/L (5-15); AST (GOT) 15 U/L (15-37); BICARBONATE 26.7 MEQ/L (21.0-32.0); BLOOD UREA NITROGEN 21 MG/DL (7-18); CHLORIDE 107 MEQ/L (98-107); GLOMERULAR FILTRATION RATE 52 ML/MIN (>89); MAGNESIUM 1.9 MG/DL (1.5-2.5); POTASSIUM 4.2 MEQ/L (3.5-5.1); SODIUM (NA) 140 MEQ/L (136-145)
[2016-08-28] MEDS ORDERED: NALOXONE HCL 0.4 MG/ML AMP IV PRN (03:45)
[2016-08-28] MEDS ORDERED: cefTRIAXone INJ 1,000 MG in SODIUM CHLORIDE 0.9% INJ 100 ML IV ONE (03:45)
[2016-08-28] MEDS ORDERED: GLUCAGON 1 MG/ML VIAL OTHER PRN ×2 (03:45→09:15)
[2016-08-28] MEDS ORDERED: SODIUM CHLORIDE 0.9% FLUSH 10 ML FLUSH IV FLUSH PRN (03:45)
[2016-08-28] MEDS ORDERED: DEXTROSE 50% IN WATER 50 ML VIAL(D50) IV PUSH PRN ×2 (03:45→09:15)
[2016-08-28] MEDS: SODIUM CHLOR 0.9% 1000 ML INJ 1,000 ML IV SCH ×3 (04:17→22:49)
[2016-08-28] MEDS: HEPARIN SODIUM - SQ 10,000 UNITS/ML VIAL SQ SCH ×3 (04:18→22:48)
--- NOTE | 2016-08-28 07:42 | EKG ---
Date Performed: 08/28/2016 Time Performed: 02:44:21 PTAGE: 60 years EKG: Sinus rhythm NORMAL ECG COMPARED TO PRIOR ELECTROCARDIOGRAM, Rate has slowed. PREVIOUS TRACING : 06/12/2016 12.05 DOCTOR: Charan Sandoval Interpretating Date/Time 08/28/2016 07:40:02
--- NOTE | 2016-08-28 08:53 | HHI.HP ---
[facility] Victor Manuel Jones MD Admission Diagnosis AMS, UTI Diagnoses: Chief Complaint: Altered mental status Travel History International Travel<30 Days: No Contact w/Intl Traveler <30 Da: No Traveled to Known Affected Are: No History of Present Illness This is a 60-year-old male past medical history of peripheral arterial disease, type 2 diabetes insulin-dependent, hypertension, status post right AKA, recent bowel perforation status post open repair with ostomy placement, status post mitral valve replacement, and chronic anticoagulation on Coumadin who presented with altered mental status. When patient was seen by me he was fully alert and a a O 3. He was able to answer questions appropriately. Per medical record by the emergency medicine physician patient was altered last night. It was noted that he was confused and per his significant other patient was too weak to go home. Patient had no complaints. Review of system was reviewed and all was negative. His nurse Hector was at the bedside. During his stay in the hospital his blood pressure has been running very high in the 200s. Per patient he does have uncontrolled blood pressure but does not know how high. Patient also stated that he's been taking Coumadin every day but it has not been checked recently at all. Review of Systems Constitutional: DENIES: Diaphoretic episodes, Fatigue, Fever, Weight gain, Weight loss, Chills, Dizziness, Change in appetite, Night Sweats Endocrine: DENIES: Heat/cold intolerance, Polydipsia, Polyuria, Polyphagia Eyes: DENIES: Blurred vision, Diplopia, Eye inflammation, Eye pain, Vision loss , Photosensitivity, Double Vision Ears, nose, mouth, throat: DENIES: Tinnitus, Hearing loss, Vertigo, Nasal discharge, Oral lesions, Throat pain, Hoarseness, Ear Pain, Running Nose, Epistaxis, Sinus Pain, Toothache, Odynophagia Respiratory: DENIES: Apneas, Cough, Snoring, Wheezing, Hemoptysis, Sputum production, Shortness of breath Cardiovascular: DENIES: Chest pain, Palpitations, Syncope, Dyspnea on Exertion , PND, Lower Extremity Edema, Orthopnea, Claudication Gastrointestinal: DENIES: Abdominal pain, Black stools, Bloody stools, Constipation, Diarrhea, Nausea, Vomiting, Difficulty Swallowing, Anorexia Genitourinary: DENIES: Sexual dysfunction, Urinary frequency, Urinary incontinence, Urgency, Hematuria, Dysuria, Nocturia, Penile Discharge, Testicular Pain, Testicular Swelling Musculoskeletal: DENIES: Joint pain, Muscle aches, Stiffness, Joint Swelling, Back pain, Neck pain Integumentary: DENIES: Abnormal pigmentation, Nail changes, Pruritus, Rash Hematologic/lymphatic: DENIES: Bruising, Lymphadenopathy Immunologic/allergic: DENIES: Eczema, Urticaria Neurologic: DENIES: Abnormal gait, Headache, Localized weakness, Paresthesias, Seizures, Speech Problems, Tremor, Poor Balance Psychiatric: DENIES: Anxiety, Confusion, Mood changes, Depression, Hallucinations, Agitation, Suicidal Ideation, Homicidal Ideation, Delusions Past Family Social History Past Medical History Type 2 diabetes insulin-dependent, hypertension, coronary artery disease status post CABG, bowel perforation status post open repair with ostomy placement, right AKA, peripheral arterial disease, history of CVA Past Surgical History Mitral valve replacement Right AKA Open repair of bowel perforation with ostomy placement Colonoscopy Reported Medications Reported Meds & Active Scripts Active Ramah (Hydrocodone-Acetaminophen) 5-325 mg Tab 1 Tab PO Q4H PRN Toprol XL (Metoprolol Succinate) 100 Mg Tab 100 Mg PO DAILY Reported Santyl Topical (Collagenase) 250 Unit/Gm Oint 1 Applic TOPICAL 1 X DAILY & PRN SOIL Warfarin 3 Mg Tab 3 Mg PO DAILY@1600 Thera-M (Multiple Vitamins W/ Minerals) 1 Tab 1 Tab PO DAILY Ferrous Sulfate 325 Mg Tab 325 Mg PO BID Colace (Docusate Sodium) 100 Mg Cap 100 Mg PO TID Mapap (Acetaminophen) 325 Mg Tab 650 Mg PO Q4HR PRN Prilosec (Omeprazole) 20 Mg Cap 20 Mg PO DAILY Humalog Inj (Insulin Human Lispro) 1,000 Unit/10 Ml Vial 2-10 Units SQ ACHS Max dose at bedtime:( )units; sugars < 70,(0)units; sugars 150-199,(2)units; sugars 200-249,(3)units; sugars 250-299,(5)units; sugars 300-349,(7)units; sugars 350 -400,(10)units. 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 Pseudomonas (buttock) - 12/04/12 ESBL (urine) - 09/19/12 VRE (buttock) - 08/18/12 Active Ordered Medications Current Medications Sodium Chloride (NS Flush) 2 ml UNSCH PRN IV FLUSH FLUSH AFTER USING IV ACCESS ; Start 08/28/16 at 03:45 Sodium Chloride (NS Flush) 2 ml BID IV FLUSH ; Start 08/28/16 at 09:00 Heparin Sodium (Porcine) (Heparin Inj) 5,000 units Q8H SQ Last administered on 08/28/16 04:18; Start 08/28/16 at 04:00 Naloxone HCl 0.4 mg 0.4 mg UNSCH PRN IV SEE LABEL COMMENTS; Start 08/28/16 at 03:45 Sodium Chloride 1,000 ml @ 100 mls/hr Q10H IV Last administered on 08/28/16 04:17; Start 08/28/16 at 03:45 Ceftriaxone Sodium/Sodium Chloride (Rocephin Inj/NS Inj) 100 ml @ 200 mls/hr ONCE ONCE IV Last administered on 08/28/16 04:17; Start 08/28/16 at 03:45; Stop 08/28/16 at 04:14; Status DC Dextrose (D50w (Vial) Inj) 25 ml UNSCH PRN IV PUSH HYPOGLYCEMIA-SEE COMMENTS; Start 08/28/16 at 03:45 Glucagon 1 mg 1 mg UNSCH PRN OTHER HYPOGLYCEMIA-SEE COMMENTS; Start 08/28/16 at 03:45 Ciprofloxacin/ Dextrose (Cipro 400 Mg Premix) 200 ml @ 200 mls/hr Q12H IV ; Start 08/28/16 at 09:00; Stop 08/28/16 at 09:01; Status DC Hydralazine HCl 20 mg 20 mg Q4H PRN IV PUSH SBP >180 or DBP>100; Start at 09:00; Status UNV Pharmacy Profile Note 0 ml @ 0 mls/hr UNSCH OTHER ; Start 08/28/16 at 09:00; Status UNV Ceftriaxone Sodium/Sodium Chloride (Rocephin Inj/NS Inj) 100 ml @ 200 mls/hr Q24H IV ; Start 08/28/16 at 09:00; Status UNV Acetaminophen (Tylenol) 650 mg Q4HR PRN PO PAIN/TEMP>100; Start 08/28/16 at 09: 15; Status UNV Atorvastatin Calcium (Lipitor) 10 mg HS PO ; Start 08/28/16 at 21:00; Status UNV Cilostazol (Pletal) 50 mg BID PO ; Start 08/28/16 at 21:00; Status UNV Collagenase (Santyl Oint) 1 applic DAILY TOPICAL ; Start 08/29/16 at 09:00; Status UNV Docusate Sodium (Colace) 100 mg TID PO ; Start 08/28/16 at 13:00; Status UNV Ferrous Sulfate (Ferrous Sulfate) 325 mg BID PO ; Start 08/28/16 at 21:00; Status UNV Acetaminophen/ Hydrocodone Bitart ([place] 5-325 Mg) 1 tab Q4H PRN PO PAIN; Start 08/28/16 at 09:15; Status UNV Metoprolol Succinate (Toprol Xl) 100 mg DAILY PO ; Start 08/28/16 at 09:15; Status UNV Multivitamins/ Minerals Therapeutic (Theragran M Tab) 1 tab DAILY PO ; Start at 09:00; Status UNV Warfarin Sodium (Coumadin) 3 mg DAILY@1600 PO ; Start 08/28/16 at 16:00; Status UNV Non-Formulary Medication 1 drop BID EACH EYE Intraocular Pressure; Start at 21:00; Status UNV Non-Formulary Medication 20 mg DAILY PO ; Start 08/29/16 at 09:00; Status UNV Non-Formulary Medication 1 drop HS EACH EYE Glaucoma; Start 08/28/16 at 21:00; Status UNV Dextrose (D50w (Vial) Inj) 25 ml UNSCH PRN IV PUSH HYPOGLYCEMIA-SEE COMMENTS; Start 08/28/16 at 09:15; Status UNV Glucagon (Glucagon Inj) 1 mg UNSCH PRN OTHER HYPOGLYCEMIA-SEE COMMENTS; Start 08/28/16 at 09:15; Status UNV Insulin Aspart (NovoLOG SUPPLEMENTAL SCALE) 1 ACHS SLIDING SCALE SQ ; Start at 11:00; Status UNV Family History Denies any past family history. Social History Patient lives at home with his significant other. Denies any alcohol,tobacco, or illicit drug use. Physical Exam Vital Signs Vital Signs Date Time Temp Pulse Resp B/P Pulse Ox O2 Delivery O2 Flow Rate FiO2 08/28/16 07:34 68 18 220/91 96 Room Air 08/28/16 07:34 Room Air 08/28/16 06:02 69 16 199/91 95 Room Air 08/28/16 01:15 Room Air 08/28/16 01:00 98.0 72 20 177/109 100 Physical Exam GENERAL: This is a well-nourished, well-developed patient, in no apparent distress. SKIN: sacral ulcer and left heel with erythema and skin tear HEAD: Atraumatic. Normocephalic. No temporal or scalp tenderness. EYES: Pupils equal round and reactive. Extraocular motions intact. No scleral icterus. No injection or drainage. ENT: Nose without bleeding, purulent drainage or septal hematoma. Throat without erythema, tonsillar hypertrophy or exudate. Uvula midline. Airway patent. NECK: Trachea midline. No JVD or lymphadenopathy. Supple, nontender, no meningeal signs. CARDIOVASCULAR: Regular rate and rhythm without murmurs, gallops, or rubs. RESPIRATORY: Clear to auscultation. Breath sounds equal bilaterally. No wheezes , rales, or rhonchi. GASTROINTESTINAL: Abdomen soft, non-tender, nondistended. Ostomy in place and intact. No hepato-splenomegaly, or palpable masses. No guarding. MUSCULOSKELETAL: Extremities without clubbing, cyanosis, or edema. No joint tenderness, effusion, or edema noted. No calf tenderness. Negative Homans sign bilaterally. right AKA. NEUROLOGICAL: Awake and alert. Cranial nerves II through XII intact. Motor and sensory grossly within normal limits. Five out of 5 muscle strength in all muscle groups. Normal speech. Laboratory Laboratory Tests Test 08/28/16 08/28/16 01:50 02:00 White Blood Count 8.0 Red Blood Count 4.39 Hemoglobin 11.8 Hematocrit 36.2 Mean Corpuscular Volume 82.6 Mean Corpuscular Hemoglobin 26.8 Mean Corpuscular Hemoglobin 32.5 Concent Red Cell Distribution Width 16.0 Platelet Count 253 Mean Platelet Volume 7.9 Neutrophils (%) (Auto) 55.5 Lymphocytes (%) (Auto) 31.6 Monocytes (%) (Auto) 7.3 Eosinophils (%) (Auto) 4.2 Basophils (%) (Auto) 1.4 Neutrophils # (Auto) 4.4 Lymphocytes # (Auto) 2.5 Monocytes # (Auto) 0.6 Eosinophils # (Auto) 0.3 Basophils # (Auto) 0.1 CBC Comment DIFF FINAL Differential Comment Prothrombin Time 16.6 Prothromb Time International 1.5 Ratio Activated Partial 30.7 Thromboplast Time Urine Color LIGHT-YELLOW Urine Turbidity HAZY Urine pH 7.0 Urine Specific [place] 1.010 Urine Protein 30 Urine Glucose (UA) 70 Urine Ketones NEG Urine Occult Blood SMALL Urine Nitrite NEG Urine Bilirubin NEG Urine Urobilinogen LESS THAN 2.0 Urine Leukocyte Esterase LARGE Urine RBC 6 Urine WBC Urine WBC Clumps FEW Urine Squamous Epithelial <1 Cells Urine Yeast (Budding) RARE Microscopic Urinalysis Comment CULTURE INDICATED Sodium Level 140 Potassium Level 4.2 Chloride Level 107 Carbon Dioxide Level 26.7 Anion Gap 6 Blood Urea Nitrogen 21 Creatinine 1.38 Estimat Glomerular Filtration 52 Rate Random Glucose 175 Calcium Level 9.3 Magnesium Level 1.9 Total Bilirubin 0.3 Aspartate Amino Transf 15 (AST/SGOT) Alanine Aminotransferase 16 (ALT/SGPT) Alkaline Phosphatase 82 C-Reactive Protein 2.17 B-Type Natriuretic Peptide 57 Total Protein 8.2 Albumin 3.4 Lipase 322 Urine Opiates Screen NEG Urine Barbiturates Screen NEG Urine Amphetamines Screen NEG Urine Benzodiazepines Screen NEG Urine Cocaine Screen NEG Urine Cannabinoids Screen NEG Ethyl Alcohol Level LESS THAN 3 Ammonia 17 Date/Time Procedure Status Source Growth 08/28/16 01:50 Urine Culture Received Urine Clean Catch Pending Result Diagram: 08/28/16 0150 08/28/16 0150 Imaging Current Medications Sodium Chloride (NS Flush) 2 ml UNSCH PRN IV FLUSH FLUSH AFTER USING IV ACCESS ; Start 08/28/16 at 03:45 Sodium Chloride (NS Flush) 2 ml BID IV FLUSH ; Start 08/28/16 at 09:00 Heparin Sodium (Porcine) (Heparin Inj) 5,000 units Q8H SQ Last administered on 08/28/16 04:18; Start 08/28/16 at 04:00 Naloxone HCl 0.4 mg 0.4 mg UNSCH PRN IV SEE LABEL COMMENTS; Start 08/28/16 at 03:45 Sodium Chloride 1,000 ml @ 100 mls/hr Q10H IV Last administered on 08/28/16 04:17; Start 08/28/16 at 03:45 Ceftriaxone Sodium/Sodium Chloride (Rocephin Inj/NS Inj) 100 ml @ 200 mls/hr ONCE ONCE IV Last administered on 08/28/16 04:17; Start 08/28/16 at 03:45; Stop 08/28/16 at 04:14; Status DC Dextrose (D50w (Vial) Inj) 25 ml UNSCH PRN IV PUSH HYPOGLYCEMIA-SEE COMMENTS; Start 08/28/16 at 03:45 Glucagon 1 mg 1 mg UNSCH PRN OTHER HYPOGLYCEMIA-SEE COMMENTS; Start 08/28/16 at 03:45 Ciprofloxacin/ Dextrose (Cipro 400 Mg Premix) 200 ml @ 200 mls/hr Q12H IV ; Start 08/28/16 at 09:00; Stop 08/28/16 at 09:01; Status DC Hydralazine HCl 20 mg 20 mg Q4H PRN IV PUSH SBP >180 or DBP>100; Start at 09:00; Status UNV Pharmacy Profile Note 0 ml @ 0 mls/hr UNSCH OTHER ; Start 08/28/16 at 09:00; Status UNV Ceftriaxone Sodium/Sodium Chloride (Rocephin Inj/NS Inj) 100 ml @ 200 mls/hr Q24H IV ; Start 08/28/16 at 09:00; Status UNV Acetaminophen (Tylenol) 650 mg Q4HR PRN PO PAIN/TEMP>100; Start 08/28/16 at 09: 15; Status UNV Atorvastatin Calcium (Lipitor) 10 mg HS PO ; Start 08/28/16 at 21:00; Status UNV Cilostazol (Pletal) 50 mg BID PO ; Start 08/28/16 at 21:00; Status UNV Collagenase (Santyl Oint) 1 applic DAILY TOPICAL ; Start 08/29/16 at 09:00; Status UNV Docusate Sodium (Colace) 100 mg TID PO ; Start 08/28/16 at 13:00; Status UNV Ferrous Sulfate (Ferrous Sulfate) 325 mg BID PO ; Start 08/28/16 at 21:00; Status UNV Acetaminophen/ Hydrocodone Bitart ([place] 5-325 Mg) 1 tab Q4H PRN PO PAIN; Start 08/28/16 at 09:15; Status UNV Metoprolol Succinate (Toprol Xl) 100 mg DAILY PO ; Start 08/28/16 at 09:15; Status UNV Multivitamins/ Minerals Therapeutic (Theragran M Tab) 1 tab DAILY PO ; Start at 09:00; Status UNV Warfarin Sodium (Coumadin) 3 mg DAILY@1600 PO ; Start 08/28/16 at 16:00; Status UNV Non-Formulary Medication 1 drop BID EACH EYE Intraocular Pressure; Start at 21:00; Status UNV Non-Formulary Medication 20 mg DAILY PO ; Start 08/29/16 at 09:00; Status UNV Non-Formulary Medication 1 drop HS EACH EYE Glaucoma; Start 08/28/16 at 21:00; Status UNV Dextrose (D50w (Vial) Inj) 25 ml UNSCH PRN IV PUSH HYPOGLYCEMIA-SEE COMMENTS; Start 08/28/16 at 09:15; Status UNV Glucagon (Glucagon Inj) 1 mg UNSCH PRN OTHER HYPOGLYCEMIA-SEE COMMENTS; Start 08/28/16 at 09:15; Status UNV Insulin Aspart (NovoLOG SUPPLEMENTAL SCALE) 1 ACHS SLIDING SCALE SQ ; Start at 11:00; Status UNV Assessment and Plan Assessment and Plan 60-year-old male with multiple medical conditions including peripheral vascular disease status post right AKA, type 2 diabetes insulin-dependent, CAD status post CABG who presented with altered mental status Metabolic encephalopathy -CT scan of the head is negative just shows an old infarct. Labs reviewed are relatively stable. Positive for UTI. Most likely secondary to UTI. -Improving with treatment. UTI -Rodriguez was placed yesterday may be secondary to altered mental status. Will remove Rodriguez tomorrow once patient is more alert and evaluated by PT. -Patient was given Rocephin in the ED will continue Rocephin pending urine cultures. Hypertensive urgency -Asymptomatic. No sign of an organ damage. Systolic blood pressure running in the 200s. -We will resume home medication and add hydralazine when necessary. -We'll continue to monitor. Type 2 diabetes insulin-dependent -Blood sugars running in the 170s at the moment. Since patient does have decreased by mouth intake will hold home meds. -Start patient on insulin sliding scale. Once patient start tolerating more by mouth intake and based on blood sugars will restart home medication. Sacral ulcer stage 2, left heel ulcer stage 1 present at admission -will consult wound care. Chronic anticoagulation -Per Dr. Jones note in the EMR patient is on this for mitral valve replacement. He did not list goal therapeutic INR. Per patient he was told goal therapeutic INR was between 2-3. -Not sure what type of valve patient has but will continue management as per patient and Dr. Jones. -INR currently 1.5. Will have pharmacy dose Coumadin. Coronary artery disease status post CABG, peripheral arterial disease status post right AKA, perforated bowel status post open repair and ostomy placement, hyperlipidemia, GERD, s/p mitral valve replacement -Resume home medication DVT prophylaxis -On Coumadin Discussed Condition With patient and nurse Hector Physician Certification 2 Midnight Certification Type: Admission for Inpatient Services Order for Inpatient Services The services are ordered in accordance with Medicare regulations or non- Medicare payer requirements, as applicable. In the case of services not specified as inpatient-only, they are appropriately provided as inpatient services in accordance with the 2-midnight benchmark. Estimated LOS (days): 3 3 days is the estimated time the patient will need to remain in the hospital, assuming treatment plan goals are met and no additional complications. Post-Hospital Plan: SNF Macey Jauregui MD Aug 28, 2016 08:53
[2016-08-28] MEDS ORDERED: CIPROFLOXACIN 400 MG PREMIX 200 ML IV SCH (09:00)
[2016-08-28] MEDS: SODIUM CHLORIDE 0.9% FLUSH 10 ML FLUSH IV FLUSH SCH ×2 (09:00→22:46)
[2016-08-28] MEDS ORDERED: ACETAMINOPHEN 325 MG TAB PO PRN (09:15)
[2016-08-28] MEDS: cefTRIAXone INJ 1,000 MG in SODIUM CHLORIDE 0.9% INJ 100 ML IV SCH (11:09)
[2016-08-28] MEDS: INSULIN ASPART SUPPLEMENTAL SCALE SQ SCH ×3 (11:09→22:47)
[2016-08-28] MEDS: METOPROLOL SUCCINATE 50 MG EXTENDED RELEASE TAB PO SCH (11:10)
[2016-08-28] MEDS: DOCUSATE SODIUM 100 MG CAP PO SCH ×2 (12:38→17:13)
[2016-08-28] MEDS: hydrALAZINE HCL 20 MG/ML VIAL IV PUSH PRN (14:30)
[2016-08-28] MEDS: WARFARIN SOD 3 MG TAB PO SCH (16:30)
[2016-08-28] MEDS ORDERED: SIMBRINZA OPTH EACH EYE SCH (21:00)
[2016-08-28] MEDS: FERROUS SULFATE 325 MG (65 MG ELEMENTAL IRON) TAB PO SCH (22:48)
[2016-08-28] MEDS: ATORVASTATIN 10 MG TAB PO SCH (22:48)
[2016-08-28] MEDS: CILOSTAZOL 50 MG TAB PO SCH (22:49)
[2016-08-28] MEDS: LATANOPROST 0.005% OPHT SOLN 2.5 ML BTL EACH EYE SCH (22:49)
[2016-08-28] MEDS: ACETAMINOPHEN/HYDROcodone 325 MG/5 MG TAB PO PRN (23:02)
[2016-08-29] VITALS: BP 140/80; PULSE 80; RESP 18; TEMP 98.3; O2SAT 96
[2016-08-29 04:00] VITALS: BP 131/77; PULSE 78; RESP 16; TEMP 98; O2SAT 96
[2016-08-29] MEDS: HEPARIN SODIUM - SQ 10,000 UNITS/ML VIAL SQ SCH ×3 (05:32→21:41)
[2016-08-29] MEDS: ACETAMINOPHEN/HYDROcodone 325 MG/5 MG TAB PO PRN ×4 (05:32→21:50)
[2016-08-29] MEDS: INSULIN ASPART SUPPLEMENTAL SCALE SQ SCH ×4 (06:25→21:42)
[2016-08-29 07:12] LABS: AUTOMATED NEUTROPHIL # 5.9 TH/MM3 (1.8-7.7); BASOPHIL % 0.3 % (0.0-2.0); EOSINOPHIL # 0.3 TH/MM3 (0-0.4); EOSINOPHIL % 3.5 % (0.0-4.0); HEMATOCRIT 37.2 % (39.0-51.0); HEMO FLAGS DIFF FINAL; LYMPH % 27.6 % (9.0-44.0); LYMPHOCYTE # 2.7 TH/MM3 (1.0-4.8); MEAN CELL VOLUME 83.2 FL (80.0-100.0); MEAN CORPUSCULAR HGB CONC 32.4 % (32.0-36.0); MONO % 8.5 % (0.0-8.0); NEUT % 60.1 % (16.0-70.0); PLATELET COUNT 245 TH/MM3 (150-450); RED BLOOD COUNT 4.47 MIL/MM3 (4.50-5.90); RED CELL DISTRIBUTION WIDTH 16.1 % (11.6-17.2); WHITE BLOOD COUNT 9.9 TH/MM3 (4.0-11.0)
[2016-08-29 07:21] LABS: INTERNATIONAL NORMALIZED RATIO 1.2 RATIO; PROTHROMBIN TIME - PATIENT 13.9 SEC (9.8-11.6)
[2016-08-29 07:41] LABS: BICARBONATE 23.7 MEQ/L (21.0-32.0); POTASSIUM 4.1 MEQ/L (3.5-5.1)
[2016-08-29 08:00] VITALS: BP 160/80; PULSE 70; RESP 18; TEMP 97.8; O2SAT 96
[2016-08-29] MEDS: SODIUM CHLORIDE 0.9% FLUSH 10 ML FLUSH IV FLUSH SCH ×2 (09:00→21:42)
[2016-08-29] MEDS: PANTOPRAZOLE SOD 20 MG DELAYED RELEASE TAB PO SCH (09:30)
[2016-08-29] MEDS: FERROUS SULFATE 325 MG (65 MG ELEMENTAL IRON) TAB PO SCH ×2 (09:30→21:41)
[2016-08-29] MEDS: DOCUSATE SODIUM 100 MG CAP PO SCH ×3 (09:30→16:05)
[2016-08-29] MEDS: CILOSTAZOL 50 MG TAB PO SCH ×2 (09:30→21:41)
[2016-08-29] MEDS: MULTIVITAMINS/MINERALS THERAPEUTIC TAB PO SCH (09:30)
[2016-08-29] MEDS: METOPROLOL SUCCINATE 50 MG EXTENDED RELEASE TAB PO SCH (09:30)
[2016-08-29] MEDS: SODIUM CHLOR 0.9% 1000 ML INJ 1,000 ML IV SCH ×2 (09:34→21:51)
[2016-08-29] MEDS: cefTRIAXone INJ 1,000 MG in SODIUM CHLORIDE 0.9% INJ 100 ML IV SCH (11:00)
[2016-08-29] MEDS: COLLAGENASE OINT 30 GM TUBE TOPICAL SCH (11:00)
[2016-08-29 12:00] VITALS: BP 168/91; PULSE 71; RESP 18; TEMP 97.8; O2SAT 99
[2016-08-29 16:00] VITALS: BP 157/89; PULSE 90; RESP 18; TEMP 98.7; O2SAT 96
[2016-08-29] MEDS: WARFARIN SOD 3 MG TAB PO SCH (16:00)
[2016-08-29] MEDS ORDERED: WARFARIN SOD 2 MG TAB PO SCH (16:00)
--- NOTE | 2016-08-29 16:37 | HHI.PR ---
Subjective Remarks Follow-up for altered mental status and UTI Patient is AAO 3. He has no complaints. He stated that he is doing well. Denied any shortness of breathing, chest pain, abdominal pain. Patient stated that he feels like he is back to his baseline. Objective Vitals Vital Signs Date Time Temp Pulse Resp B/P Pulse Ox O2 Delivery O2 Flow Rate FiO2 08/29/16 12:00 97.8 71 18 168/91 99 08/29/16 08:00 97.8 70 18 160/80 96 08/29/16 04:00 98.0 78 16 131/77 96 08/29/16 00:00 98.3 80 18 140/80 96 08/28/16 20:00 98.8 97 18 174/93 95 08/28/16 20:00 99 08/28/16 18:49 100 I/O 08/28/16 08/28/16 08/28/16 08/29/16 08/29/16 08/29/16 07:00 15:00 23:00 07:00 15:00 23:00 Intake Total 240 ml 120 ml Output Total 1000 ml 450 ml Balance -760 ml -330 ml Intake Oral 240 ml 120 ml Output Urine Total 1000 ml 450 ml Stool Total 0 ml 0 ml Result Diagram: 08/29/16 0435 08/29/16 0435 Objective Remarks GENERAL: in NAD CARDIOVASCULAR: Regular rate and rhythm without murmurs, gallops, or rubs. RESPIRATORY: Breath sounds equal bilaterally. No accessory muscle use. GASTROINTESTINAL: Abdomen soft, non-tender, nondistended. Ostomy in place. Multiple abdominal scars. MUSCULOSKELETAL: No cyanosis, or edema. Right AKA BACK: Nontender without obvious deformity. No CVA tenderness. Medications and IVs Current Medications Sodium Chloride (NS Flush) 2 ml UNSCH PRN IV FLUSH FLUSH AFTER USING IV ACCESS ; Start 08/28/16 at 03:45 Sodium Chloride (NS Flush) 2 ml BID IV FLUSH Last administered on 08/28/16 22: 46; Start 08/28/16 at 09:00 Heparin Sodium (Porcine) (Heparin Inj) 5,000 units Q8H SQ Last administered on 08/29/16 12:00; Start 08/28/16 at 04:00 Naloxone HCl 0.4 mg 0.4 mg UNSCH PRN IV SEE LABEL COMMENTS; Start 08/28/16 at 03:45 Sodium Chloride 1,000 ml @ 100 mls/hr Q10H IV Last administered on 08/29/16 09:34; Start 08/28/16 at 03:45 Ceftriaxone Sodium/Sodium Chloride (Rocephin Inj/NS Inj) 100 ml @ 200 mls/hr ONCE ONCE IV Last administered on 08/28/16 04:17; Start 08/28/16 at 03:45; Stop 08/28/16 at 04:14; Status DC Dextrose (D50w (Vial) Inj) 25 ml UNSCH PRN IV PUSH HYPOGLYCEMIA-SEE COMMENTS; Start 08/28/16 at 03:45 Glucagon 1 mg 1 mg UNSCH PRN OTHER HYPOGLYCEMIA-SEE COMMENTS; Start 08/28/16 at 03:45 Ciprofloxacin/ Dextrose (Cipro 400 Mg Premix) 200 ml @ 200 mls/hr Q12H IV ; Start 08/28/16 at 09:00; Stop 08/28/16 at 09:01; Status DC Hydralazine HCl 20 mg 20 mg Q4H PRN IV PUSH SBP >180 or DBP>100 Last administered on 08/28/16 14:30; Start 08/28/16 at 09:00 Pharmacy Profile Note 0 ml @ 0 mls/hr UNSCH OTHER ; Start 08/28/16 at 09:00 Ceftriaxone Sodium/Sodium Chloride (Rocephin Inj/NS Inj) 100 ml @ 200 mls/hr Q24H IV Last administered on 08/29/16 11:00; Start 08/28/16 at 11:00 Acetaminophen (Tylenol) 650 mg Q4H PRN PO TEMP>100; Start 08/28/16 at 09:15 Atorvastatin Calcium (Lipitor) 10 mg HS PO Last administered on 08/28/16 22:48 ; Start 08/28/16 at 21:00 Cilostazol (Pletal) 50 mg BID PO Last administered on 08/29/16 09:30; Start at 21:00 Collagenase (Santyl Oint) 1 applic DAILY TOPICAL ; Start 08/29/16 at 11:00 Docusate Sodium (Colace) 100 mg TID PO Last administered on 08/29/16 09:30; Start 08/28/16 at 13:00 Ferrous Sulfate (Ferrous Sulfate) 325 mg BID PO Last administered on 08/29/16 09:30; Start 08/28/16 at 21:00 Acetaminophen/ Hydrocodone Bitart ([place] 5-325 Mg) 1 tab Q4H PRN PO PAIN 1-10 Last administered on 08/29/16 09:32; Start 08/28/16 at 09:15 Metoprolol Succinate (Toprol Xl) 100 mg DAILY PO Last administered on 09:30; Start 08/28/16 at 11:00 Multivitamins/ Minerals Therapeutic (Theragran M Tab) 1 tab DAILY PO Last administered on 08/29/16 09:30; Start 08/29/16 at 09:00 Warfarin Sodium (Coumadin) 3 mg DAILY@1600 PO Last administered on 08/28/16 16 :30; Start 08/28/16 at 16:00 Patient Own Medication PT OWN MED: Simbri... BID EACH EYE Intraocular Pressure; Start 08/28/16 at 21:00; Status Hold Pantoprazole Sodium (Protonix) 20 mg DAILY PO Last administered on 08/29/16 09 :30; Start 08/29/16 at 09:00 Latanoprost (Xalatan 0.005% Opt Soln) 1 drop HS EACH EYE Last administered on 08/28/16 22:49; Start 08/28/16 at 21:00 Dextrose (D50w (Vial) Inj) 25 ml UNSCH PRN IV PUSH HYPOGLYCEMIA-SEE COMMENTS; Start 08/28/16 at 09:15 Glucagon (Glucagon Inj) 1 mg UNSCH PRN OTHER HYPOGLYCEMIA-SEE COMMENTS; Start 08/28/16 at 09:15 Insulin Aspart 1 1 ACHS SLIDING SCALE SQ Last administered on 08/29/16 11:00 ; Start 08/28/16 at 11:00 Pharmacy Profile Note (Coumadin Consult Pharmacy) 0 ml @ 0 mls/hr UNSCH OTHER ; Start 08/28/16 at 09:30; Status UNV Warfarin Sodium (Coumadin) 2 mg ONCE PO ; Start 08/29/16 at 16:00; Stop at 21:00 A/P Assessment and Plan 60-year-old male with multiple medical conditions including peripheral vascular disease status post right AKA, type 2 diabetes insulin-dependent, CAD status post CABG who presented with altered mental status Metabolic encephalopathy -CT scan of the head is negative just shows an old infarct. Labs reviewed are relatively stable. Positive for UTI. Most likely secondary to UTI. -Resolved. Patient is back to his baseline. UTI -Rodriguez was placed yesterday may be secondary to altered mental status. Rodriguez was placed in the ED. Altered mental status resolved there is no indication for Rodriguez at the moment. Will remove Rodriguez. -Urine cultures showed immature growth in is reincubating. Continue with Rocephin. Hypertensive urgency -Asymptomatic. No sign of an organ damage. Systolic blood pressure initially running in the 200s. Now systolic blood pressure ranging 130s to 160. -Blood pressure is better controlled. Maybe exacerbated prior due to agitation. -Continue her current regimen. Type 2 diabetes insulin-dependent -Blood sugars ranging in the upper 100s to 300. -Initially home medication was held since patient had altered mental status. Since patient is back to baseline and he is tolerating PO intake will restart his home medication of Lantus 35 units daily. Sacral ulcer stage 3, left heel ulcer stage 1 present at admission -Wound care recommended to cleanse wound to R Lower back, Medial coccyx, L gluteal cleft with normal saline and apply bordered gauze. apply skin prep to periwound before applying dressing.Change dressing daily. Chesaning L heel and L buttock deep tissue injuries with betadine BID and leave wounds open to air. Chronic anticoagulation -Per Dr. Jones note in the EMR patient is on this for mitral valve replacement. He did not list goal therapeutic INR. Per patient he was told goal therapeutic INR was between 2-3. -Not sure what type of valve patient has but will continue management as per patient and Dr. Jones. -INR on admission was 1.5 and it's now 1.2. Will have pharmacy dose Coumadin. Coronary artery disease status post CABG, peripheral arterial disease status post right AKA, perforated bowel status post open repair and ostomy placement, hyperlipidemia, GERD, s/p mitral valve replacement -continue home medication DVT prophylaxis -On Coumadin Discharge Planning Patient is back to his baseline pending urine cultures. Possible discharge tomorrow to SNF. Dealt with case management. Macey Jauregui MD Aug 29, 2016 16:37
[2016-08-29 20:00] VITALS: BP 158/83; PULSE 76; PULSE 88; RESP 18; TEMP 98.2; O2SAT 97
[2016-08-29] MEDS: LATANOPROST 0.005% OPHT SOLN 2.5 ML BTL EACH EYE SCH (21:40)
[2016-08-29] MEDS: ATORVASTATIN 10 MG TAB PO SCH (21:41)
[2016-08-29] MEDS: INSULIN DETEMIR 100 UNITS/ML VIAL SQ SCH (21:42)
[2016-08-30] VITALS: BP 174/94; PULSE 82; RESP 18; TEMP 98.4; O2SAT 97
[2016-08-30 04:00] VITALS: BP 186/109; PULSE 74; RESP 18; TEMP 98.1; O2SAT 97
[2016-08-30] MEDS: hydrALAZINE HCL 20 MG/ML VIAL IV PUSH PRN (05:14)
[2016-08-30] MEDS: ACETAMINOPHEN/HYDROcodone 325 MG/5 MG TAB PO PRN ×2 (05:16→20:51)
[2016-08-30] MEDS: HEPARIN SODIUM - SQ 10,000 UNITS/ML VIAL SQ SCH ×3 (05:16→20:50)
[2016-08-30] MEDS: SODIUM CHLOR 0.9% 1000 ML INJ 1,000 ML IV SCH (05:19)
[2016-08-30] MEDS: INSULIN ASPART SUPPLEMENTAL SCALE SQ SCH ×4 (06:09→20:51)
[2016-08-30 08:01] VITALS: BP 132/67; PULSE 90; RESP 16; TEMP 98.2; O2SAT 97
[2016-08-30] MEDS: FERROUS SULFATE 325 MG (65 MG ELEMENTAL IRON) TAB PO SCH ×2 (08:32→20:50)
[2016-08-30] MEDS: PANTOPRAZOLE SOD 20 MG DELAYED RELEASE TAB PO SCH (08:32)
[2016-08-30] MEDS: CILOSTAZOL 50 MG TAB PO SCH ×2 (08:32→20:50)
[2016-08-30] MEDS: COLLAGENASE OINT 30 GM TUBE TOPICAL SCH (08:33)
[2016-08-30] MEDS: MULTIVITAMINS/MINERALS THERAPEUTIC TAB PO SCH (08:33)
[2016-08-30] MEDS: METOPROLOL SUCCINATE 50 MG EXTENDED RELEASE TAB PO SCH (08:33)
[2016-08-30] MEDS: SODIUM CHLORIDE 0.9% FLUSH 10 ML FLUSH IV FLUSH SCH ×2 (08:33→20:54)
[2016-08-30] MEDS: DOCUSATE SODIUM 100 MG CAP PO SCH ×3 (08:33→16:57)
[2016-08-30 08:34] LABS: INTERNATIONAL NORMALIZED RATIO 1.2 RATIO; PROTHROMBIN TIME - PATIENT 13.1 SEC (9.8-11.6)
--- NOTE | 2016-08-30 10:16 | HHI.PR ---
Subjective Remarks in no acute distress. awake, alert and oriented. afebrile. has some back pain. otherwise no other complaints. d/w the RN and no acute issues over night. Objective Vitals Vital Signs Date Time Temp Pulse Resp B/P Pulse Ox O2 Delivery O2 Flow Rate FiO2 08/30/16 08:01 98.2 90 16 132/67 97 08/30/16 04:00 98.1 74 18 186/109 97 08/30/16 00:00 98.4 82 18 174/94 97 08/29/16 20:00 88 08/29/16 20:00 98.2 76 18 158/83 97 08/29/16 16:00 98.7 90 18 157/89 96 08/29/16 12:00 97.8 71 18 168/91 99 I/O 08/29/16 08/29/16 08/29/16 08/30/16 08/30/16 08/30/16 07:00 15:00 23:00 07:00 15:00 23:00 Intake Total 120 ml 720 ml 240 ml 100 ml Output Total 450 ml 1750 ml 400 ml 850 ml Balance -330 ml -1030 ml -160 ml -750 ml Intake Oral 120 ml 720 ml 240 ml 100 ml Output Urine Total 450 ml 1500 ml 400 ml 850 ml Stool Total 0 ml 250 ml 0 ml Result Diagram: 08/29/16 0435 08/29/16 0435 Imaging Last Impressions Head CT 08/28/16120 Signed Impressions: Service Date/Time: Sunday, August 28, 2016 02:13 - CONCLUSION: Normal examination. 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 Howard Fernandes MD Chest X-Ray 08/28/16120 Signed Impressions: Service Date/Time: Sunday, August 28, 2016 01:44 - CONCLUSION: Normal examination. Numerous sternal wires and prosthetic heart valve. Minimal atelectasis left lung base. Howard Fernandes MD Objective Remarks GENERAL: This is a well-nourished, well-developed patient, in no apparent distress. CARDIOVASCULAR: Regular rate and regular rhythm without murmurs, gallops, or rubs. RESPIRATORY: Clear to auscultation. Breath sounds equal bilaterally. No wheezes , rales, or rhonchi. GASTROINTESTINAL: Abdomen soft, non-tender, nondistended. Normal, active bowel sounds- colostomy in place. MUSCULOSKELETAL: s/p right AKA NEURO: Alert & Oriented x4 to person, place, time, situation. Moves all ext x4 Procedures none Medications and IVs Current Medications Sodium Chloride (NS Flush) 2 ml UNSCH PRN IV FLUSH FLUSH AFTER USING IV ACCESS ; Start 08/28/16 at 03:45 Sodium Chloride (NS Flush) 2 ml BID IV FLUSH Last administered on 08/29/16 21: 42; Start 08/28/16 at 09:00 Heparin Sodium (Porcine) (Heparin Inj) 5,000 units Q8H SQ Last administered on 08/30/16 05:16; Start 08/28/16 at 04:00 Naloxone HCl 0.4 mg 0.4 mg UNSCH PRN IV SEE LABEL COMMENTS; Start 08/28/16 at 03:45 Sodium Chloride 1,000 ml @ 100 mls/hr Q10H IV Last administered on 08/30/16 05:19; Start 08/28/16 at 03:45 Ceftriaxone Sodium/Sodium Chloride (Rocephin Inj/NS Inj) 100 ml @ 200 mls/hr ONCE ONCE IV Last administered on 08/28/16 04:17; Start 08/28/16 at 03:45; Stop 08/28/16 at 04:14; Status DC Dextrose (D50w (Vial) Inj) 25 ml UNSCH PRN IV PUSH HYPOGLYCEMIA-SEE COMMENTS; Start 08/28/16 at 03:45 Glucagon 1 mg 1 mg UNSCH PRN OTHER HYPOGLYCEMIA-SEE COMMENTS; Start 08/28/16 at 03:45 Ciprofloxacin/ Dextrose (Cipro 400 Mg Premix) 200 ml @ 200 mls/hr Q12H IV ; Start 08/28/16 at 09:00; Stop 08/28/16 at 09:01; Status DC Hydralazine HCl 20 mg 20 mg Q4H PRN IV PUSH SBP >180 or DBP>100 Last administered on 08/30/16 05:14; Start 08/28/16 at 09:00 Pharmacy Profile Note 0 ml @ 0 mls/hr UNSCH OTHER ; Start 08/28/16 at 09:00 Ceftriaxone Sodium/Sodium Chloride (Rocephin Inj/NS Inj) 100 ml @ 200 mls/hr Q24H IV Last administered on 08/29/16 11:00; Start 08/28/16 at 11:00 Acetaminophen (Tylenol) 650 mg Q4H PRN PO TEMP>100; Start 08/28/16 at 09:15 Atorvastatin Calcium (Lipitor) 10 mg HS PO Last administered on 08/29/16 21:41 ; Start 08/28/16 at 21:00 Cilostazol (Pletal) 50 mg BID PO Last administered on 08/30/16 08:32; Start at 21:00 Collagenase (Santyl Oint) 1 applic DAILY TOPICAL ; Start 08/29/16 at 11:00 Docusate Sodium (Colace) 100 mg TID PO Last administered on 08/30/16 08:33; Start 08/28/16 at 13:00 Ferrous Sulfate (Ferrous Sulfate) 325 mg BID PO Last administered on 08/30/16 08:32; Start 08/28/16 at 21:00 Acetaminophen/ Hydrocodone Bitart ([place] 5-325 Mg) 1 tab Q4H PRN PO PAIN 1-10 Last administered on 08/30/16 05:16; Start 08/28/16 at 09:15 Metoprolol Succinate (Toprol Xl) 100 mg DAILY PO Last administered on 08:33; Start 08/28/16 at 11:00 Multivitamins/ Minerals Therapeutic (Theragran M Tab) 1 tab DAILY PO Last administered on 08/30/16 08:33; Start 08/29/16 at 09:00 Warfarin Sodium (Coumadin) 3 mg DAILY@1600 PO Last administered on 08/29/16 16 :00; Start 08/28/16 at 16:00 Patient Own Medication PT OWN MED: Simbri... BID EACH EYE Intraocular Pressure; Start 08/28/16 at 21:00; Status Hold Pantoprazole Sodium (Protonix) 20 mg DAILY PO Last administered on 08/30/16 08 :32; Start 08/29/16 at 09:00 Latanoprost (Xalatan 0.005% Opth Soln) 1 drop HS EACH EYE Last administered on 08/29/16 21:40; Start 08/28/16 at 21:00 Dextrose (D50w (Vial) Inj) 25 ml UNSCH PRN IV PUSH HYPOGLYCEMIA-SEE COMMENTS; Start 08/28/16 at 09:15 Glucagon (Glucagon Inj) 1 mg UNSCH PRN OTHER HYPOGLYCEMIA-SEE COMMENTS; Start 08/28/16 at 09:15 Insulin Aspart 1 1 ACHS SLIDING SCALE SQ Last administered on 08/30/16 06:09 ; Start 08/28/16 at 11:00 Pharmacy Profile Note (Coumadin Consult Pharmacy) 0 ml @ 0 mls/hr UNSCH OTHER ; Start 08/28/16 at 09:30; Status UNV Warfarin Sodium (Coumadin) 2 mg ONCE PO Last administered on 08/29/16 16:00; Start 08/29/16 at 16:00; Stop 08/29/16 at 21:00; Status DC Insulin Detemir (Levemir Inj) 35 units HS SQ Last administered on 08/29/16 21: 42; Start 08/29/16 at 21:00 Warfarin Sodium (Coumadin) 3 mg ONCE PO ; Start 08/30/16 at 16:00; Stop at 21:00 A/P Assessment and Plan A/P Metabolic encephalopathy -CT scan of the head is negative just shows an old infarct. Labs reviewed are relatively stable. Positive for UTI. Most likely secondary to UTI. -Resolved. Patient is back to his baseline. UTI -borja was discontinued. -Urine cultures with yeast- will start diflucan. Hypertensive urgency -Asymptomatic. No sign of an organ damage. -Blood pressure is better controlled. Maybe exacerbated prior due to agitation. -Continue her current regimen. Type 2 diabetes insulin-dependent -resume home isulin regimen. Sacral ulcer stage 3, left heel ulcer stage 1 present at admission -Wound care recommended to cleanse wound to R Lower back, Medial coccyx, L gluteal cleft with normal saline and apply bordered gauze. apply skin prep to periwound before applying dressing.Change dressing daily. [place] L heel and L buttock deep tissue injuries with betadine BID and leave wounds open to air. Chronic anticoagulation -Per Dr. Jones note in the EMR patient is on this for mitral valve replacement. He did not list goal therapeutic INR. Per patient he was told goal therapeutic INR was between 2-3. -Not sure what type of valve patient has but will continue management as per patient and Dr. Jones. Coronary artery disease status post CABG, peripheral arterial disease status post right AKA, perforated bowel status post open repair and ostomy placement, hyperlipidemia, GERD, s/p mitral valve replacement -continue home medication DVT prophylaxis -On Coumadin Discharge Planning dc to SNF when arrangements made. f/u; pcp. see med list. d/w the patient and case management. d/w the RN. time spent 35 min. Brenna Waldrpo MD Aug 30, 2016 10:16
[2016-08-30] MEDS ORDERED: DIFL100T PO (10:18)
[2016-08-30] MEDS ORDERED: NORC5TAB PO (10:18)
--- NOTE | 2016-08-30 10:19 | HHI.DCPOC ---
Discharge Care Plan Diagnosis: (1) Urinary tract infection Your Health Problems Are: Difficulty with ADL Goals to Promote Your Health * To prevent worsening of your condition and complications * To maintain your health at the optimal level Directions to Meet Your Goals Take your medications as prescribed Follow your dietary instruction Follow activity as directed Keep your appointments as scheduled Take your immunizations and boosters as scheduled If your symptoms worsen call your PCP, if no PCP go to Urgent Care Center or Emergency Room Smoking is Dangerous to Your Health. Avoid second hand smoke Call the 24-hour hour crisis hotline for domestic abuse at Brenna Waldrop MD Aug 30, 2016 10:19
--- NOTE | 2016-08-30 10:19 | HHI.DS ---
Discharge Summary Admission Date Aug 28, 2016 at 08:54 Discharge Date: Aug 30, 2016 Admitting Diagnosis AMS, UTI (1) Urinary tract infection ICD Code: N39.0 Procedures none Brief History - From Admission This is a 60-year-old male past medical history of peripheral arterial disease, type 2 diabetes insulin-dependent, hypertension, status post right AKA, recent bowel perforation status post open repair with ostomy placement, status post mitral valve replacement, and chronic anticoagulation on Coumadin who presented with altered mental status. When patient was seen by me he was fully alert and a a O 3. He was able to answer questions appropriately. Per medical record by the emergency medicine physician patient was altered last night. It was noted that he was confused and per his significant other patient was too weak to go home. Patient had no complaints. Review of system was reviewed and all was negative. His nurse Hector was at the bedside. During his stay in the hospital his blood pressure has been running very high in the 200s. Per patient he does have uncontrolled blood pressure but does not know how high. Patient also stated that he's been taking Coumadin every day but it has not been checked recently at all. CBC/BMP: 08/29/16 0435 08/29/16 0435 Significant Findings Laboratory Tests Test 08/28/16 08/29/16 08/30/16 01:50 04:35 08:02 Red Blood Count 4.39 MIL/MM3 4.47 MIL/MM3 (4.50-5.90) (4.50-5.90) Hemoglobin 11.8 GM/DL 12.0 GM/DL (13.0-17.0) (13.0-17.0) Hematocrit 36.2 % 37.2 % (39.0-51.0) (39.0-51.0) Mean Corpuscular Hemoglobin 26.8 PG (27.0-34.0) Eosinophils (%) (Auto) 4.2 % (0.0-4.0) Prothrombin Time 16.6 SEC 13.9 SEC 13.1 SEC (9.8-11.6) (9.8-11.6) (9.8-11.6) Activated Partial 30.7 SEC Thromboplast Time (24.3-30.1) Urine Turbidity HAZY (CLEAR) Urine Protein 30 mg/dL (NEG-TRACE) Urine Glucose (UA) 70 mg/dL (NEG) Urine Occult Blood SMALL (NEG) Urine Leukocyte Esterase LARGE (NEG) Urine RBC 6 /hpf (0-3) Urine WBC Clumps FEW (NONE) Urine Yeast (Budding) RARE (NONE) Blood Urea Nitrogen 21 MG/DL (7-18) 23 MG/DL (7-18) Creatinine 1.38 MG/DL (0.60-1.30) Estimat Glomerular Filtration 52 ML/MIN (>89) 59 ML/MIN (>89) Rate Random Glucose 175 MG/DL 167 MG/DL (74-106) (74-106) C-Reactive Protein 2.17 MG/DL (0.00-0.30) Monocytes (%) (Auto) 8.5 % (0.0-8.0) Imaging Last Impressions Head CT 08/28/16120 Signed Impressions: Service Date/Time: Sunday, August 28, 2016 02:13 - CONCLUSION: Normal examination. 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 Howard Fernandes MD Chest X-Ray 08/28/16120 Signed Impressions: Service Date/Time: Sunday, August 28, 2016 01:44 - CONCLUSION: Normal examination. Numerous sternal wires and prosthetic heart valve. Minimal atelectasis left lung base. Howard Fernandes MD PE at Discharge GENERAL: This is a well-nourished, well-developed patient, in no apparent distress. CARDIOVASCULAR: Regular rate and regular rhythm without murmurs, gallops, or rubs. RESPIRATORY: Clear to auscultation. Breath sounds equal bilaterally. No wheezes , rales, or rhonchi. GASTROINTESTINAL: Abdomen soft, non-tender, nondistended. Normal, active bowel sounds- colostomy in place. MUSCULOSKELETAL: s/p right AKA NEURO: Alert & Oriented x4 to person, place, time, situation. Moves all ext x4 Hospital Course Metabolic encephalopathy -CT scan of the head is negative just shows an old infarct. Labs reviewed are relatively stable. Positive for UTI. Most likely secondary to UTI. -Resolved. Patient is back to his baseline. UTI -borja was discontinued. -Urine cultures with yeast- will start diflucan. Hypertensive urgency -Asymptomatic. No sign of an organ damage. -Blood pressure is better controlled. Maybe exacerbated prior due to agitation. -Continue her current regimen. Type 2 diabetes insulin-dependent -resume home isulin regimen. Sacral ulcer stage 3, left heel ulcer stage 1 present at admission -Wound care recommended to cleanse wound to R Lower back, Medial coccyx, L gluteal cleft with normal saline and apply bordered gauze. apply skin prep to periwound before applying dressing.Change dressing daily. [place] L heel and L buttock deep tissue injuries with betadine BID and leave wounds open to air. Chronic anticoagulation -Per Dr. Jones note in the EMR patient is on this for mitral valve replacement. He did not list goal therapeutic INR. Per patient he was told goal therapeutic INR was between 2-3. -Not sure what type of valve patient has but will continue management as per patient and Dr. Jones. Coronary artery disease status post CABG, peripheral arterial disease status post right AKA, perforated bowel status post open repair and ostomy placement, hyperlipidemia, GERD, s/p mitral valve replacement -continue home medication DVT prophylaxis -On Coumadin Pt Condition on Discharge: Stable Discharge Disposition: Discharge to SNF Discharge Time: > 30 minutes Discharge Instructions DIET: Follow Instructions for: Heart Healthy Diet, Diabetic Diet Activities you can perform: Regular-No Restrictions Follow up Referrals: PCP Follow-up New Medications: Fluconazole (Diflucan) 100 Mg Tab 100 MG PO DAILY Infection Days 7 Ref 0 TAB Continued Medications: Acetaminophen (Mapap) 325 Mg Tab 650 MG PO Q4HR PRN PAIN/TEMP>100 Ref 0 TAB Atorvastatin (Atorvastatin) 10 Mg Tab 10 MG PO HS Cholesterol Management #30 Ref 0 TAB Brinzolamide-Brimonidine Opth Drops (Simbrinza Opth Drops) 1-0.2% Susp 1 DROP EACH EYE BID Intraocular Pressure #1 Ref 0 BOTTLE Cilostazol (Cilostazol) 50 Mg Tab 50 MG PO BID INTERMITTENT CLAUDICATION Ref 0 TAB Collagenase Topical (Santyl Topical) 250 Unit/Gm Oint 1 APPLIC TOPICAL 1 X DAILY & PRN SOIL Wound Management #90 Ref 0 GM Docusate Sodium (Colace) 100 Mg Cap 100 MG PO TID Constipation #90 Ref 0 CAP Ferrous Sulfate (Ferrous Sulfate) 325 Mg Tab 325 MG PO BID Nutritional Supplement #30 Ref 0 TAB Hydrocodone-Acetaminophen ([place]) 5-325 mg Tab 1 TAB PO Q4H PRN PAIN #20 Ref 0 TAB (This prescription has been renewed) Insulin Glargine Inj (Lantus Inj) 1,000 Unit/10 Ml Vial 35 UNITS SQ HS Blood Sugar Management Ref 0 VIAL Insulin Lispro (Human) Inj (Humalog Inj) 1,000 Unit/10 Ml Vial 2-10 UNITS SQ ACHS Max dose at bedtime:( )units; sugars < 70,(0)units; sugars 150-199,(2)units; sugars 200-249,(3)units; sugars 250-299,(5)units; sugars 300- 349,(7)units; sugars 350 -400,(10)units. Blood Sugar Management #1 Ref 0 VIAL Metoprolol Succinate ER 24 HR (Toprol XL) 100 Mg Tab 100 MG PO DAILY htn #30 Ref 11 TAB Multiple Vitamins W/ Minerals (Thera-M) 1 Tab 1 TAB PO DAILY Nutritional Supplement Ref 0 TAB Omeprazole (Prilosec) 20 Mg Cap 20 MG PO DAILY #30 Ref 0 CAP Travoprost Opth Drops (Travatan Z Opth Drops) 0.004 % Soln 1 DROP EACH EYE HS Glaucoma #1 Ref 0 BOTTLE Warfarin (Warfarin) 3 Mg Tab 3 MG PO DAILY@1600 Blood Clot Prevention #30 Ref 0 TAB Brenna Waldrop MD Aug 30, 2016 10:19
[2016-08-30] MEDS: FLUCONAZOLE 100 MG TAB PO SCH (11:00)
[2016-08-30] MEDS: cefTRIAXone INJ 1,000 MG in SODIUM CHLORIDE 0.9% INJ 100 ML IV SCH (11:00)
[2016-08-30 12:00] VITALS: BP 146/83; PULSE 89; RESP 18; TEMP 98.3; O2SAT 99
[2016-08-30 16:00] VITALS: BP 86/53; PULSE 95; RESP 20; TEMP 98.1; O2SAT 86
[2016-08-30] MEDS ORDERED: WARFARIN SOD 3 MG TAB PO SCH (16:00)
[2016-08-30] MEDS: WARFARIN SOD 3 MG TAB PO SCH (16:00)
[2016-08-30 20:00] VITALS: BP 125/70; PULSE 100; PULSE 90; RESP 20; TEMP 98.4; O2SAT 98
[2016-08-30] MEDS: ATORVASTATIN 10 MG TAB PO SCH (20:50)
[2016-08-30] MEDS: INSULIN DETEMIR 100 UNITS/ML VIAL SQ SCH (20:51)
[2016-08-30] MEDS: LATANOPROST 0.005% OPHT SOLN 2.5 ML BTL EACH EYE SCH (20:54)
[2016-08-31] VITALS: BP 116/62; PULSE 75; RESP 20; TEMP 98.3; O2SAT 97
[2016-08-31] MEDS: ACETAMINOPHEN/HYDROcodone 325 MG/5 MG TAB PO PRN ×3 (02:10→11:30)
[2016-08-31 04:00] VITALS: BP 137/75; PULSE 84; RESP 20; TEMP 98.2; O2SAT 98
[2016-08-31] MEDS: HEPARIN SODIUM - SQ 10,000 UNITS/ML VIAL SQ SCH ×2 (04:06→11:30)
[2016-08-31] MEDS: INSULIN ASPART SUPPLEMENTAL SCALE SQ SCH ×2 (06:27→11:00)
[2016-08-31 07:29] LABS: INTERNATIONAL NORMALIZED RATIO 1.3 RATIO; PROTHROMBIN TIME - PATIENT 14.2 SEC (9.8-11.6)
[2016-08-31 08:00] VITALS: BP 162/87; PULSE 77; RESP 18; TEMP 98.2; O2SAT 99
[2016-08-31] MEDS: FERROUS SULFATE 325 MG (65 MG ELEMENTAL IRON) TAB PO SCH (08:51)
[2016-08-31] MEDS: CILOSTAZOL 50 MG TAB PO SCH (08:51)
[2016-08-31] MEDS: DOCUSATE SODIUM 100 MG CAP PO SCH ×2 (08:51→11:30)
[2016-08-31] MEDS: MULTIVITAMINS/MINERALS THERAPEUTIC TAB PO SCH (08:51)
[2016-08-31] MEDS: PANTOPRAZOLE SOD 20 MG DELAYED RELEASE TAB PO SCH (08:52)
[2016-08-31] MEDS: METOPROLOL SUCCINATE 50 MG EXTENDED RELEASE TAB PO SCH (08:52)
[2016-08-31] MEDS: SODIUM CHLORIDE 0.9% FLUSH 10 ML FLUSH IV FLUSH SCH (08:52)
[2016-08-31] MEDS: COLLAGENASE OINT 30 GM TUBE TOPICAL SCH (08:53)
--- NOTE | 2016-08-31 09:47 | HHI.PR ---
Subjective Remarks resting comfortably with no distress. has some back pain. no fever. no other complaints. Objective Vitals Vital Signs Date Time Temp Pulse Resp B/P Pulse Ox O2 Delivery O2 Flow Rate FiO2 08/31/16 08:00 98.2 77 18 162/87 99 08/31/16 04:00 98.2 84 20 137/75 98 08/31/16 00:00 98.3 75 20 116/62 97 08/30/16 20:00 100 08/30/16 20:00 98.4 90 20 125/70 98 08/30/16 16:00 98.1 95 20 86/53 86 08/30/16 12:00 98.3 89 18 146/83 99 I/O 08/30/16 08/30/16 08/30/16 08/31/16 08/31/16 08/31/16 07:00 15:00 23:00 07:00 15:00 23:00 Intake Total 100 ml 240 ml 240 ml 720 ml Output Total 850 ml 525 ml 125 ml 750 ml Balance -750 ml -285 ml 115 ml -30 ml Intake Oral 100 ml 240 ml 240 ml 720 ml Output Urine Total 850 ml 525 ml 125 ml 750 ml # Bowel Movements 0 0 Result Diagram: 08/29/16 0435 08/29/16 043 Imaging Last Impressions Head CT 08/28/16120 Signed Impressions: Service Date/Time: Sunday, August 28, 2016 02:13 - CONCLUSION: Normal examination. 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 Howard Fernandes MD Chest X-Ray 08/28/16120 Signed Impressions: Service Date/Time: Sunday, August 28, 2016 01:44 - CONCLUSION: Normal examination. Numerous sternal wires and prosthetic heart valve. Minimal atelectasis left lung base. Howard Fernandes MD Objective Remarks GENERAL: This is a well-nourished, well-developed patient, in no apparent distress. CARDIOVASCULAR: Regular rate and regular rhythm without murmurs, gallops, or rubs. RESPIRATORY: Clear to auscultation. Breath sounds equal bilaterally. No wheezes , rales, or rhonchi. GASTROINTESTINAL: Abdomen soft, non-tender, nondistended. Normal, active bowel sounds- colostomy in place. MUSCULOSKELETAL: s/p right AKA NEURO: Alert & Oriented x4 to person, place, time, situation. Moves all ext x4 Procedures none Medications and IVs Current Medications Sodium Chloride (NS Flush) 2 ml UNSCH PRN IV FLUSH FLUSH AFTER USING IV ACCESS ; Start 08/28/16 at 03:45 Sodium Chloride (NS Flush) 2 ml BID IV FLUSH Last administered on 08/31/16 08: 52; Start 08/28/16 at 09:00 Heparin Sodium (Porcine) (Heparin Inj) 5,000 units Q8H SQ Last administered on 08/31/16 04:06; Start 08/28/16 at 04:00 Naloxone HCl 0.4 mg 0.4 mg UNSCH PRN IV SEE LABEL COMMENTS; Start 08/28/16 at 03:45 Sodium Chloride 1,000 ml @ 100 mls/hr Q10H IV Last administered on 08/30/16 05:19; Start 08/28/16 at 03:45; Status Hold Ceftriaxone Sodium/Sodium Chloride (Rocephin Inj/NS Inj) 100 ml @ 200 mls/hr ONCE ONCE IV Last administered on 08/28/16 04:17; Start 08/28/16 at 03:45; Stop 08/28/16 at 04:14; Status DC Dextrose (D50w (Vial) Inj) 25 ml UNSCH PRN IV PUSH HYPOGLYCEMIA-SEE COMMENTS; Start 08/28/16 at 03:45 Glucagon 1 mg 1 mg UNSCH PRN OTHER HYPOGLYCEMIA-SEE COMMENTS; Start 08/28/16 at 03:45 Ciprofloxacin/ Dextrose (Cipro 400 Mg Premix) 200 ml @ 200 mls/hr Q12H IV ; Start 08/28/16 at 09:00; Stop 08/28/16 at 09:01; Status DC Hydralazine HCl 20 mg 20 mg Q4H PRN IV PUSH SBP >180 or DBP>100 Last administered on 08/30/16 05:14; Start 08/28/16 at 09:00 Pharmacy Profile Note 0 ml @ 0 mls/hr UNSCH OTHER ; Start 08/28/16 at 09:00 Ceftriaxone Sodium/Sodium Chloride (Rocephin Inj/NS Inj) 100 ml @ 200 mls/hr Q24H IV Last administered on 08/30/16 11:00; Start 08/28/16 at 11:00 Acetaminophen (Tylenol) 650 mg Q4H PRN PO TEMP>100; Start 08/28/16 at 09:15 Atorvastatin Calcium (Lipitor) 10 mg HS PO Last administered on 08/30/16 20:50 ; Start 08/28/16 at 21:00 Cilostazol (Pletal) 50 mg BID PO Last administered on 08/31/16 08:51; Start at 21:00 Collagenase (Santyl Oint) 1 applic DAILY TOPICAL Last administered on 08:53; Start 08/29/16 at 11:00 Docusate Sodium (Colace) 100 mg TID PO Last administered on 08/31/16 08:51; Start 08/28/16 at 13:00 Ferrous Sulfate (Ferrous Sulfate) 325 mg BID PO Last administered on 08/31/16 08:51; Start 08/28/16 at 21:00 Acetaminophen/ Hydrocodone Bitart ([place] 5-325 Mg) 1 tab Q4H PRN PO PAIN 1-10 Last administered on 08/31/16 06:28; Start 08/28/16 at 09:15 Metoprolol Succinate (Toprol Xl) 100 mg DAILY PO Last administered on 08:52; Start 08/28/16 at 11:00 Multivitamins/ Minerals Therapeutic (Theragran M Tab) 1 tab DAILY PO Last administered on 08/31/16 08:51; Start 08/29/16 at 09:00 Warfarin Sodium (Coumadin) 3 mg DAILY@1600 PO Last administered on 08/30/16 16 :00; Start 08/28/16 at 16:00 Patient Own Medication PT OWN MED: Simbri... BID EACH EYE Intraocular Pressure; Start 08/28/16 at 21:00; Status Hold Pantoprazole Sodium (Protonix) 20 mg DAILY PO Last administered on 08/31/16 08 :52; Start 08/29/16 at 09:00 Latanoprost (Xalatan 0.005% Opth Soln) 1 drop HS EACH EYE Last administered on 08/30/16 20:54; Start 08/28/16 at 21:00 Dextrose (D50w (Vial) Inj) 25 ml UNSCH PRN IV PUSH HYPOGLYCEMIA-SEE COMMENTS; Start 08/28/16 at 09:15 Glucagon (Glucagon Inj) 1 mg UNSCH PRN OTHER HYPOGLYCEMIA-SEE COMMENTS; Start 08/28/16 at 09:15 Insulin Aspart 1 1 ACHS SLIDING SCALE SQ Last administered on 08/31/16 06:27 ; Start 08/28/16 at 11:00 Pharmacy Profile Note (Coumadin Consult Pharmacy) 0 ml @ 0 mls/hr UNSCH OTHER ; Start 08/28/16 at 09:30; Status UNV Warfarin Sodium (Coumadin) 2 mg ONCE PO Last administered on 08/29/16 16:00; Start 08/29/16 at 16:00; Stop 08/29/16 at 21:00; Status DC Insulin Detemir (Levemir Inj) 35 units HS SQ Last administered on 08/30/16 20: 51; Start 08/29/16 at 21:00 Warfarin Sodium (Coumadin) 3 mg ONCE PO Last administered on 08/30/16 16:00; Start 08/30/16 at 16:00; Stop 08/30/16 at 21:00; Status DC Fluconazole (Diflucan) 100 mg Q24H PO Last administered on 08/30/16 11:00; Start 08/30/16 at 11:00 Warfarin Sodium (Coumadin) 2 mg ONCE PO ; Start 08/31/16 at 16:00; Stop at 21:00 A/P Assessment and Plan A/P Metabolic encephalopathy-improved. -CT scan of the head is negative just shows an old infarct. Labs reviewed are relatively stable. Positive for UTI. Most likely secondary to UTI. -Resolved. Patient is back to his baseline. UTI -borja was discontinued. -Urine cultures with yeast- continue diflucan. Hypertensive urgency -Asymptomatic. No sign of an organ damage. -Blood pressure is better controlled. Maybe exacerbated prior due to agitation. -Continue her current regimen. Type 2 diabetes insulin-dependent -resumed home insulin regimen. Sacral ulcer stage 3, left heel ulcer stage 1 present at admission -Wound care recommended to cleanse wound to R Lower back, Medial coccyx, L gluteal cleft with normal saline and apply bordered gauze. apply skin prep to periwound before applying dressing.Change dressing daily. [place] L heel and L buttock deep tissue injuries with betadine BID and leave wounds open to air. Chronic anticoagulation -Per Dr. Jones note in the EMR patient is on this for mitral valve replacement. He did not list goal therapeutic INR. Per patient he was told goal therapeutic INR was between 2-3. -Not sure what type of valve patient has but will continue management as per patient and Dr. Jones. -will be more conservative towards anticoagulation due to history of GI bleed. Coronary artery disease status post CABG, peripheral arterial disease status post right AKA, perforated bowel status post open repair and ostomy placement, hyperlipidemia, GERD, s/p mitral valve replacement -continue home medication DVT prophylaxis -On Coumadin Discharge Planning dc to SNF when arrangements made. f/u; pcp. see med list. d/w the patient. d/w the RN and case management today. time spent 35 min. Brenna Waldrop MD Aug 31, 2016 09:46
[2016-08-31] MEDS: FLUCONAZOLE 100 MG TAB PO SCH (11:30)
[2016-08-31 12:00] VITALS: BP 147/77; PULSE 87; RESP 20; TEMP 98.6; O2SAT 100
[2016-08-31] MEDS ORDERED: WARFARIN SOD 2 MG TAB PO SCH (16:00)
== END 2016-08-31 14:01 | DRG 727 ==
LOC: NEPC 00:32 → NEDA 03:34 → INTOOBSV 03:34 → NEDH 07:36 → OBSVTOIN 08:54 → N04A 16:12
PROVIDERS: ADMIT Internal Medicine; ATTEND Internal Medicine
DX: B37.49 Other urogenital candidiasis (principal); G93.41 Metabolic encephalopathy; L89.153 Pressure ulcer of sacral region, stage 3; E11.621 Type 2 diabetes mellitus with foot ulcer; Z89.611 Acquired absence of right leg above knee; L89.621 Pressure ulcer of left heel, stage 1; I25.10 Atherosclerotic heart disease of native coronary artery without angina pectoris; I10 Essential (primary) hypertension; E78.5 Hyperlipidemia, unspecified; I73.9 Peripheral vascular disease, unspecified; K21.9 Gastro-esophageal reflux disease without esophagitis; I16.0 Hypertensive urgency; R32 Unspecified urinary incontinence; Z95.2 Presence of prosthetic heart valve; Z95.1 Presence of aortocoronary bypass graft; Z79.4 Long term (current) use of insulin; Z79.01 Long term (current) use of anticoagulants; Z86.73 Personal history of transient ischemic attack (TIA), and cerebral infarction without residual deficits; Z93.3 Colostomy status
CPT/HCPCS: 51702; 70450; 71010; 80048; 80053; 80307; 81001; 82140; 82948; 83690; 83735; 83880; 85025; 85610; 85730; 86140; 87086; 87106; 93005; J0360; J0696; J1644; J1815; J7030

== ENCOUNTER 2016-12-23 13:49 | Emergency (ER) | payer MEDICARE, MEDICAID ==
[~2016-12-23] VITALS: Ht 180.3 cm; Wt 90.0 kg
[~2016-12-23 13:49] MED LIST changes: +DIFL100T PO
[2016-12-23 13:52] VITALS: BP 149/73; PULSE 77; RESP 20; TEMP 98; O2SAT 98
[2016-12-23 14:00] VITALS: BP 147/76; PULSE 77; RESP 18; O2SAT 98
[2016-12-23] MEDS ORDERED: SODIUM CHLORIDE 0.9% FLUSH 10 ML FLUSH IVF PRN (14:30)
--- NOTE | 2016-12-23 14:37 | PD ---
HPI Chief Complaint: General Weakness Time Seen by Provider: 14:36 Travel History International Travel<30 days: No Contact w/Intl Traveler<30days: No Traveled to known affect area: No History of Present Illness HPI 61 YO M presents to the ED via EMS for evaluation of weakness of the left leg. The patient states that he was diagnosed with an infection of the lower leg and is currently taking antibiotics. He states that the redness and pain of the leg has improved. He denies headache, dizziness, fevers, chills, SOB, CP, palpitations, abdominal pain, N/V, changes in bowel habits, dysuria. He is followed by Dr. Jones, last seen this month. PFSH Past Medical History Hx Anticoagulant Therapy: Yes Arthritis: Yes Asthma: Yes Autoimmune Disease: No Blood Disorders: No Anxiety: No Depression: No Heart Rhythm Problems: No Cancer: No Cardiac Catheterization: No Cardiovascular Problems: Yes High Cholesterol: Yes Chemotherapy: No Chest Pain: No Congestive Heart Failure: No COPD: No Cerebrovascular Accident: Yes (2014) Diabetes: Yes Patient Takes Glucophage: Yes Diminished Hearing: Yes (L ear) Endocrine: Yes Gastrointestinal Disorders: Yes (colostomy bag. ) GERD: Yes Genitourinary: Yes Headaches: No Hiatal Hernia: No Heparin Induced Thrombocytopen: No Hypertension: Yes Immune Disorder: No Implanted Vascular Access Dvce: No Kidney Stones: No Musculoskeletal: Yes (LT SIDE WEAKNESS WITH FOOT DROP ON LT) Neurologic: Yes Psychiatric: No Reproductive: No Respiratory: No Immunizations Current: No Migraines: No Radiation Therapy: No Renal Failure: No Seizures: No Sickle Cell Disease: No Sleep Apnea: No Thyroid Disease: No Triglycerides - High: Yes Ulcer: No Tetanus Vaccination: Unknown Influenza Vaccination: Yes Past Surgical History Abdominal Surgery: Yes (ostomy) AICD: No Arteriovenous Shunt: No Cardiac Surgery: Yes (MITRAL VALVE REPLACED 05/2012) Coronary Artery Bypass Graft: Yes (06-10-2012) Ear Surgery: No Endocrine Surgery: No Eye Surgery: No Genitourinary Surgery: No Gynecologic Surgery: No Insulin Pump: No Joint Replacement: No Neurologic Surgery: No Oral Surgery: No Pacemaker: No Thoracic Surgery: Yes Valve Replacement: Yes (MVR 06-10-2012) Other Surgery: Yes Social History Alcohol Use: Yes (OCCAS) Tobacco Use: No Substance Use: No Allergies-Medications (Allergen,Severity, Reaction): Coded Allergies: Latex (Verified Allergy, Severe, Rash, 12/23/16) *MDRO Multi-Drug Resistant Organism (Verified Adverse Reaction, Unknown, MRSA, ESBL, MDR Acinetobacter, 12/23/16) 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 Pseudomonas (buttock) - 12/04/12 ESBL (urine) - 09/19/12 VRE (buttock) - 08/18/12 Reported Meds & Prescriptions Reported Meds & Active Scripts Active Reported Metoprolol Succinate ER 24 HR (Metoprolol Succinate) 25 Mg Tab 12.5 Mg PO DAILY Lortab (Hydrocodone-Acetaminophen) 7.5-325 Mg Tab 1 Tab PO Q6H PRN Ativan (Lorazepam) 0.5 Mg Tab 0.5 Mg PO Q4H PRN Zoloft (Sertraline HCl) 25 Mg Tab 25 Mg PO DAILY Santyl Topical (Collagenase) 250 Unit/Gm Oint 1 Applic TOPICAL 1 X DAILY & PRN SOIL Warfarin 3 Mg Tab 3 Mg PO DAILY@1600 Thera-M (Multiple Vitamins W/ Minerals) 1 Tab 1 Tab PO DAILY Humalog Inj (Insulin Human Lispro) 1,000 Unit/10 Ml Vial 2-10 Units SQ ACHS Max dose at bedtime:( )units; sugars < 70,(0)units; sugars 150-199,(2)units; sugars 200-249,(3)units; sugars 250-299,(5)units; sugars 300-349,(7)units; sugars 350 -400,(10)units. Travatan Z Opth Drops (Travoprost) 0.004 % Soln 1 Drop EACH EYE HS Cilostazol 50 Mg Tab 50 Mg PO BID Simbrinza Opth Drops (Brinzolamide-Brimonidine Opth Drops) 1-0.2% Susp 1 Drop EACH EYE BID Lantus Inj (Insulin Glargine) 1,000 Unit/10 Ml Vial 35 Units SQ HS Review of Systems Except as stated in HPI: all other systems reviewed are Neg Physical Exam Exam Limitations: Uncooperative Narrative GENERAL: Well-nourished, well-developed white male in no acute distress. PSYCHIATRIC: Evasive, refuses to answer certain questions. SKIN: Focused skin assessment warm/dry. 8 x 10 cm patch of erythematous scaling on the anterior aspect of the left cardoza. No cellulitic streaking. No fluctuance. No induration. HEAD: Normocephalic. Atraumatic. EYES: No scleral icterus. No injection or drainage. NECK: Supple, trachea midline. No JVD or lymphadenopathy. CARDIOVASCULAR: Regular rate and rhythm without murmurs, gallops, or rubs. RESPIRATORY: Breath sounds equal bilaterally. No accessory muscle use. GASTROINTESTINAL: Abdomen soft, non-tender, nondistended. Active bowel sounds. Midline scars over the abdomen, well-healed without signs of infection. Colostomy bag present with brown stool in the bag. MUSCULOSKELETAL: No cyanosis. Right BKA, well-healed without signs of infection. FOCUSED LEFT LOWER EXTREMITY EXAM: 1+ pitting edema to the knee. Palpable DP pulse. Strength 4/5. Patient is wearing a brace around the calf. Homans sign positive. Subcentimeter abrasion on the tip of the great toe without signs of infection. NEUROLOGICAL: Awake and alert. Oriented 4. Cranial nerves II through XII intact. Motor and sensory grossly within normal limits. Five out of 5 muscle strength in all muscle groups. Normal speech. BACK: Nontender without obvious deformity. No CVA tenderness. Data Data Last Documented VS Vital Signs Date Time Temp Pulse Resp B/P Pulse Ox O2 Delivery O2 Flow Rate FiO2 12/23/16 14:55 18 99 Room Air 12/23/16 14:00 77 147/76 12/23/16 13:52 98.0 Orders Us Leg Venous Doppler (12/23/16 14:20) Complete Blood Count With Diff (12/23/16 14:20) Comprehensive Metabolic Panel (12/23/16 14:20) B-Type Natriuretic Peptide (12/23/16 14:20) Act Partial Throm Time (Ptt) (12/23/16 14:20) Prothrombin Time / Inr (Pt) (12/23/16 14:20) Urinalysis - C+S If Indicated (12/23/16 14:20) Iv Access Insert/Monitor (12/23/16 14:20) Ecg Monitoring (12/23/16 14:20) Oximetry (12/23/16 14:20) Oxygen Administration (12/23/16 14:20) Sodium Chloride 0.9% Flush (Ns Flush) (12/23/16 14:30) C-Reactive Protein (Crp) (12/23/16 14:20) Westergren Sedimentation Rate (12/23/16 14:20) Electrocardiogram (12/23/16 15:13) Ckmb (Isoenzyme) Profile (12/23/16 14:10) Troponin I (12/23/16 14:10) Labs Laboratory Tests Test 12/23/16 12/23/16 14:10 14:35 Prothrombin Time 18.9 SEC Prothromb Time International 1.7 RATIO Ratio Activated Partial 38.9 SEC Thromboplast Time Sodium Level 132 MEQ/L Potassium Level 5.1 MEQ/L Chloride Level 97 MEQ/L Carbon Dioxide Level 27.4 MEQ/L Anion Gap 8 MEQ/L Blood Urea Nitrogen 30 MG/DL Creatinine 1.76 MG/DL Estimat Glomerular Filtration 39 ML/MIN Rate Random Glucose 336 MG/DL Calcium Level 8.9 MG/DL Total Bilirubin 0.4 MG/DL Aspartate Amino Transf 18 U/L (AST/SGOT) Alanine Aminotransferase 29 U/L (ALT/SGPT) Alkaline Phosphatase 92 U/L Total Creatine Kinase 68 U/L Troponin I LESS THAN 0.02 NG/ML C-Reactive Protein 3.07 MG/DL B-Type Natriuretic Peptide 44 PG/ML Total Protein 8.0 GM/DL Albumin 3.2 GM/DL White Blood Count 9.0 TH/MM3 Red Blood Count 3.94 MIL/MM3 Hemoglobin 11.0 GM/DL Hematocrit 33.7 % Mean Corpuscular Volume 85.4 FL Mean Corpuscular Hemoglobin 27.8 PG Mean Corpuscular Hemoglobin 32.6 % Concent Red Cell Distribution Width 15.9 % Platelet Count 241 TH/MM3 Mean Platelet Volume 7.8 FL Neutrophils (%) (Auto) 77.0 % Lymphocytes (%) (Auto) 13.0 % Monocytes (%) (Auto) 5.7 % Eosinophils (%) (Auto) 3.6 % Basophils (%) (Auto) 0.7 % Neutrophils # (Auto) 6.9 TH/MM3 Lymphocytes # (Auto) 1.2 TH/MM3 Monocytes # (Auto) 0.5 TH/MM3 Eosinophils # (Auto) 0.3 TH/MM3 Basophils # (Auto) 0.1 TH/MM3 CBC Comment AUTO DIFF Differential Comment AUTO DIFF CONFIRMED Platelet Estimate LOW Platelet Morphology Comment NORMAL Erythrocyte Sedimentation Rate 63 mm/hr MDM Medical Decision Making Medical Screen Exam Complete: Yes Emergency Medical Condition: Yes Differential Diagnosis cellulitis versus sepsis versus DVT versus metabolic derangement versus dehydration versu medication misuse versus fluid overload versus other Narrative Course 61 YO M presents to the ED via EMS for evaluation of weakness of the left leg. The patient states that he was diagnosed with an infection of the lower leg and is currently taking antibiotics. He states that the redness and pain of the leg has improved. He denies headache, dizziness, fevers, chills, SOB, CP, palpitations, abdominal pain, N/V, changes in bowel habits, dysuria. He is followed by Dr. Jones. Vitals reviewed. Physical exam reveals a nontoxic- appearing white male in no acute distress. He is somewhat evasive to questioning and simply shuts his eyes and refuses to answer certain lines of questioning. No focal neuro deficits. Chest clear to auscultation bilaterally. Abdomen soft and nontender. The left lower extremity has a large scaly, erythematous patch on the anterior cardoza. There is edema and mild tenderness to palpation. Homans sign positive. EKG rate 79, sinus rhythm. VA interval 158, QRS 95, QTC 428. Normal axis. No ST changes. Reviewed by Dr. Chong. Cardiac enzymes negative 1. No leukocytosis. Hemoglobin 11. Creatinine elevated, slightly worse than baseline with evidence of dehydration. No evidence of DVT per ultrasound report. The patient's and a friend arrived. The patient's does not provide much information but she does give consent for the friend to speak with us. The 's friend describes the patient as very manipulative and controlling. She states that he has been misusing Lortab and Ativan. She states that the feels helpless to stop this behavior. I discussed these concerns with the patient who adamantly denies numbness use of these medications. He also denies history of depression though his med rec shows that he takes Zoloft. He denies SI or HI. He does not wish to be evaluated by the psychiatrist. I cautioned the patient strongly against misuse of drugs, especially highlighting the potential for decreased respiratory drive which could lead to . Again the patient states that he is not misusing his medications. He does not meet Hoffmann act criteria. The was instructed to administer medications as prescribed, follow up with the primary care provider. The patient is stable and discharged home. Diagnosis Primary Impression: Misuse of prescription only drugs Referrals: Victor Manuel Jones MD Additional Instructions: Rest, hydrate. Continue antibiotics as prescribed. Do not misuse your medications. Take them only as they're prescribed. Follow-up with Dr. Jones. Return to the ED for any urgent or emergent medical condition. Disposition: 01 DISCHARGE HOME Condition: Stable Jenifer Zurita Dec 23, 2016 14:37
[2016-12-23] MEDS ORDERED: ZOLO25TA PO (14:54)
[2016-12-23] MEDS ORDERED: LORA-392 PO (14:54)
[2016-12-23] MEDS ORDERED: HYDR-3534 PO (14:54)
[2016-12-23] MEDS ORDERED: METO25TA6 PO (14:54)
[2016-12-23 14:55] VITALS: RESP 18; O2SAT 99
[2016-12-23 15:23] LABS: AUTOMATED NEUTROPHIL # 6.9 TH/MM3 (1.8-7.7); BASOPHIL # 0.1 TH/MM3 (0-0.2); BASOPHIL % 0.7 % (0.0-2.0); EOSINOPHIL # 0.3 TH/MM3 (0-0.4); EOSINOPHIL % 3.6 % (0.0-4.0); HEMATOCRIT 33.7 % (39.0-51.0); LYMPHOCYTE # 1.2 TH/MM3 (1.0-4.8); MEAN CELL VOLUME 85.4 FL (80.0-100.0); MEAN CORPUSCULAR HEMOGLOBIN 27.8 PG (27.0-34.0); MEAN CORPUSCULAR HGB CONC 32.6 % (32.0-36.0); MONO % 5.7 % (0.0-8.0); PLATELET COUNT 241 TH/MM3 (150-450); RED BLOOD COUNT 3.94 MIL/MM3 (4.50-5.90); RED CELL DISTRIBUTION WIDTH 15.9 % (11.6-17.2)
[2016-12-23 15:28] LABS: HEMO FLAGS AUTO DIFF
[2016-12-23 15:35] LABS: APTT (PATIENT) 38.9 SEC (24.3-30.1); INTERNATIONAL NORMALIZED RATIO 1.7 RATIO; PROTHROMBIN TIME - PATIENT 18.9 SEC (9.8-11.6)
[2016-12-23 15:49] LABS: ALT (GPT) 29 U/L (12-78); ANION GAP 8 MEQ/L (5-15); AST (GOT) 18 U/L (15-37); BICARBONATE 27.4 MEQ/L (21.0-32.0); BLOOD UREA NITROGEN 30 MG/DL (7-18); CHLORIDE 97 MEQ/L (98-107); GLOMERULAR FILTRATION RATE 39 ML/MIN (>89); POTASSIUM 5.1 MEQ/L (3.5-5.1); SODIUM (NA) 132 MEQ/L (136-145)
[2016-12-23 15:51] LABS: ALKALINE PHOSPHATASE 92 U/L (45-117); TOTAL BILIRUBIN ADULT 0.4 MG/DL (0.2-1.0)
[2016-12-23 16:19] LABS: CREATINE KINASE 68 U/L (39-308)
[2016-12-23 16:23] LABS: PLATELET ESTIMATE SMEAR LOW (NORMAL); PLATELET MORPHOLOGY NORMAL (NORMAL); SCAN/DIFF AUTO DIFF CONFIRMED
--- NOTE | 2016-12-23 16:23 | RADRPT ---
EXAM DATE/TIME: 12/23/2016 15:32 [facility] COMPARISON: No previous studies available for comparison. INDICATIONS : Left leg pain. MEDICAL HISTORY : Hypercholesterolemia. Hypertension. Gastroesophageal reflux disease. Cerebrovascular accident. As thma. Arthritis. Diabetes. Alcohol use. MRSA. SURGICAL HISTORY : Mitral valve replacement. CABG. Chest surgery. Colostomy. ENCOUNTER: Initial ACUITY: 1 day PAIN SCORE: Non-responsive LOCATION: Left leg. TECHNIQUE: Venous ultrasound of the leg was performed from the inguinal ligament to the proximal calf. Real-lina e, color Doppler and spectral tracing, compression and augmentation techniques were used. FINDINGS: There is normal compressibility of the deep venous system from the inguinal region to the proximal ca lf. No echogenic clot is seen in the lumen of the common femoral, femoral or popliteal veins. Prekindergarten Teacher ior tibial vein was hard to visualized and may contain thrombus. There is a normal response of the v enous system to proximal and distal augmentation and respiration. CONCLUSION: No evidence of DVT involving the femoral or popliteal veins. Poor flow and compressibility of the posterior tibial vein which may contain thrombus. Jaleel Posada MD on December 23, 2016 at 16:16 Board Certified Radiologist. This report was verified electronically.
[2016-12-23 17:14] LABS: BLOOD, URINE NEG (NEG); COMMENT (UR) CULT NOT INDICATED; CULTURE IF INDICATED CULT NOT INDICATED; GLUCOSE,URINE 1000 mg/dL (NEG); KETONE, URINE NEG (NEG); MUCUS URINE FEW /lpf (OCC); NITRITE,URINE NEG (NEG); URINE COLOR LIGHT-YELLOW (YELLW/STRAW)
[2016-12-23 18:36] VITALS: BP 172/102; PULSE 77; RESP 18; O2SAT 98
[2016-12-23] MEDS ORDERED: METOPROLOL SUCCINATE 50 MG EXTENDED RELEASE TAB PO ONE (18:45)
--- NOTE | 2016-12-24 16:46 | EKG ---
Date Performed: 12/23/2016 Time Performed: 16:11:23 PTAGE: 61 years EKG: Sinus rhythm NORMAL ECG PREVIOUS TRACING : 08/28/2016 02.44 Since previous tracing, no significant change noted DOCTOR: Lilia Guo Interpretating Date/Time 12/24/2016 16:44:45
== END 2016-12-23 19:16 | disposition home or self-care (01) ==
LOC: NEPC 14:41
DX: F19.10 Other psychoactive substance abuse, uncomplicated (principal); R53.1 Weakness; M79.605 Pain in left leg; E11.9 Type 2 diabetes mellitus without complications; I10 Essential (primary) hypertension; Z79.4 Long term (current) use of insulin; Z79.899 Other long term (current) drug therapy; Z93.3 Colostomy status
CPT/HCPCS: 80053; 81001; 82550; 83880; 84484; 85025; 85610; 85652; 85730; 86140; 93005; 93971; 99284